=== PATIENT | male | born 1945 | race Caucasian/White ===

== ENCOUNTER 2017-06-23 00:45 | Inpatient (IN) | payer MEDICARE, BC ==
[2017-06-23] MEDS ORDERED: Metoclopramide 10 MG/2 ML SDV IVPUSH ONE (01:17)
[2017-06-23] MEDS ORDERED: Lactated Ringers 1,000 ML IV ONE (01:17)
--- NOTE | 2017-06-23 01:23 | EDM.PDOC ---
ED HPI GENERAL MEDICAL PROBLEM - General Chief Complaint: Abdominal Pain Stated Complaint: ABDOMINAL PAIN Time Seen by Provider: 06/23/17 01:00 Source of Information: Reports: Patient, Old Records, RN History Limitations: Reports: No Limitations - History of Present Illness INITIAL COMMENTS - FREE TEXT/NARRATIVE: 72 yo male s/p gastric bypass here at [facility] presents with some abdominal pain for a couple days and now vomiting starting this evening before midnight. No bleeding. Not having BM's. Feels like what he experienced when he had a bowel obstruction in the past. 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 ) Associated Symptoms: Reports: Loss of Appetite, Nausea/Vomiting. Denies: Cough , Fever/Chills, Shortness of Breath Treatments CPC: Reports: Other (see below) (reduced oral intake) Abdomen Pain Score (Numeric/FACES): 2 - Related Data Allergies Allergy/AdvReac Type Severity Reaction Status Date / Time No Known Allergies Allergy Verified 06/23/17 00:53 Home Meds: Home Meds Calc/D3/Mag/Zn/Filer Finish/Toby/[place] [Calcium 600 MG Plus Vit D] 1 tab PO DAILY [History] Cyanocobalamin (Vitamin B-12) [Cyanocobalamin Injection] 1,000 mcg IM ASDIRECTED 04/25/15 [History] Cyanocobalamin/FA/Pyridoxine [B Complex-Folic Acid] 1 tab PO DAILY 04/25/15 [ History] Lisinopril 10 mg PO DAILY #30 tablet 04/27/15 [Rx] Past Medical History HEENT History: Reports: Impaired Vision Cardiovascular History: Reports: Hypertension Gastrointestinal History: Reports: Bowel Obstruction Musculoskeletal History: Reports: None Hematologic History: Reports: B12 Deficiency - Infectious Disease History Infectious Disease History: Reports: Chicken Pox, Mumps - Past Surgical History Cardiovascular Surgical History: Reports: None GI Surgical History: Reports: Bariatric Procedure, Small Bowel Musculoskeletal Surgical History: Reports: Other (See Below) Other Musculoskeletal Surgeries/Procedures:: spinal surgery Dermatological Surgical History: Reports: None Social & Family History - Family History Family Medical History: Noncontributory - Tobacco Use Smoking Status *Q: Never Smoker Years of Tobacco use: 5 Second Hand Smoke Exposure: Yes - Caffeine Use Caffeine Use: Reports: Coffee, Tea - Alcohol Use Days Per Week of Alcohol Use: 1 Number of Drinks Per Day: 1 Total Drinks Per Week: 1 - Recreational Drug Use Recreational Drug Use: No ED ROS GENERAL - Review of Systems Review Of Systems: See Below Constitutional: Reports: Decreased Appetite HEENT: Reports: No Symptoms Respiratory: Reports: No Symptoms Cardiovascular: Reports: No Symptoms Endocrine: Reports: No Symptoms GI/Abdominal: Reports: Abdominal Pain, Anorexia, Constipation, Distension, Nausea, Vomiting. Denies: Black Stool, Bloody Stool, Diarrhea, Flatus, Hematemesis, Hematochezia : Reports: No Symptoms Musculoskeletal: Reports: No Symptoms Skin: Reports: No Symptoms Neurological: Reports: No Symptoms ED EXAM, GI/ABD - Physical Exam Exam: See Below Exam Limited By: No Limitations General Appearance: Alert, WD/WN, No Apparent Distress Eyes: Bilateral: Normal Appearance Ears: Normal External Exam, Normal Canal, Hearing Grossly Normal, Normal TMs Nose: Normal Inspection, Normal Mucosa, No Blood Throat/Mouth: Normal Inspection, Normal Lips, Normal Oropharynx, Normal Voice, No Airway Compromise Head: Atraumatic, Normocephalic Neck: Normal Inspection Respiratory/Chest: No Respiratory Distress, Lungs Clear, Normal Breath Sounds, No Accessory Muscle Use Cardiovascular: Regular Rate, Rhythm, No Edema GI/Abdominal Exam: Distended (mild), Tender (diffusely), Abnormal Bowel Sounds ( decreased). No: Guarding, Rigid, Rebound Back Exam: Normal Inspection. No: CVA Tenderness (R), CVA Tenderness (L) Extremities: Normal Inspection, Normal Range of Motion, Non-Tender Neurological: Alert, Oriented, CN II-XII Intact, Normal Cognition, No Motor/ Sensory Deficits Psychiatric: Normal Affect, Normal Mood Skin Exam: Warm, Dry, Intact, Normal Color, No Rash Course - Vital Signs Text/Narrative:: Dr. Ramsey notified @ 0320h Last Recorded V/S: Last Vital Signs Temp 36.6 C 06/24/17 06:51 Pulse 56 L 06/24/17 06:51 Resp 16 06/24/17 06:51 BP 126/59 L 04/23/18 06:51 Pulse Ox 96 06/24/17 06:51 - Orders/Labs/Meds Orders: Active Orders 24 hr Category Date Time Status HYDROmorphone/Normal Saline [Dilaudid PUBLICITY CONSULTANT 15 MG in NS Med 06/23/17 07:18 Active 30 ML] 0 mg IV ASDIRECTED PRN Naloxone [Narcan] Med 06/23/17 07:22 Active 0.1 mg IV ASDIRECTED PRN Medication Orders Acetaminophen (Tylenol) 650 mg PO Q6H [facility] Last Admin: 06/24/17 02:04 Dose: 650 mg Admin: 06/23/17 20:00 Dose: 650 mg Admin: 06/23/17 14:20 Dose: 650 mg Celecoxib (Celebrex) 200 mg PO DAILY@0800 [facility] Cyanocobalamin (Vitamin B12) 1,000 mcg IM ONETIME ONE Stop: 06/25/17 09:01 Diphenhydramine HCl (Benadryl) 25 - 50 mg IVPUSH Q4H PRN PRN Reason: ITCHING Gabapentin (Neurontin) 300 mg PO TID [facility] Last Admin: 06/23/17 21:06 Dose: 300 mg Admin: 06/23/17 14:20 Dose: 300 mg Heparin Sodium (Porcine) (Heparin Sodium) 5,000 units SUBCUT Q8H [facility] Last Admin: 06/23/17 23:57 Dose: 5,000 units Admin: 06/23/17 16:14 Dose: 5,000 units Hydromorphone HCl (Dilaudid Home Theater Expert 15 Mg In Ns 30 Ml) 0 mg IV ASDIRECTED PRN; Protocol PRN Reason: Pain Hydroxyzine HCl (Vistaril) 75 - 100 mg IM Q4H PRN PRN Reason: pain Dextrose/Lactated Ringer's (Dextrose 5%-Lactated Ringers) 1,000 mls @ 175 mls/ hr IV ASDIRECTED [facility] Last Admin: 06/24/17 06:19 Dose: 175 mls/hr Infusion: 06/24/17 05:39 Dose: 175 mls/hr Admin: 06/23/17 23:56 Dose: 175 mls/hr Infusion: 06/23/17 23:21 Dose: 175 mls/hr Admin: 06/23/17 17:38 Dose: 175 mls/hr Multivitamins/Minerals 10 ml/Thiamine HCl 100 mg/ Chromium/Copper/Manganese/ Seleni/Zn 1 ml/ Dextrose/Lactated Ringer's 1,012 mls @ 175 mls/hr IV DAILY@ 1600 [facility] Last Admin: 06/23/17 17:36 Dose: 175 mls/hr Cefoxitin Sodium 2 gm/ Sodium (Chloride) 50 mls @ 100 mls/hr IV Q6H [facility] Stop: 06/24/17 08:29 Last Admin: 06/24/17 02:04 Dose: 100 mls/hr Admin: 06/23/17 20:01 Dose: 100 mls/hr Admin: 06/23/17 14:20 Dose: 100 mls/hr Labetalol HCl (Normodyne) 5 - 15 mg IVPUSH Q1H PRN PRN Reason: SBP over 160 OR DBP over 95 Lisinopril (Prinivil) 10 mg PO DAILY [facility] Metoclopramide HCl (Reglan) 10 mg IVPUSH Q6H PRN PRN Reason: NAUSEA NOT CONTROL BY ZOFRAN Miscellaneous Information (Remove Patch) 1 ea TRDERM ONETIME ONE Stop: 06/25/17 10:01 Naloxone HCl (Narcan) 0.1 mg IV ASDIRECTED PRN PRN Reason: decreased respiratory rate Scopolamine Patch (Check) 1 each TOP DAILY [facility] Stop: 06/25/17 12:01 Ondansetron HCl (Zofran) 4 mg IVPUSH Q4H PRN PRN Reason: Nausea/Vomiting Pantoprazole Sodium (Protonix Iv) 40 mg IVPUSH Q24H [facility] Last Admin: 06/23/17 14:20 Dose: 40 mg Scopolamine (Transderm-Scop) 1.5 mg TOP Q72H [facility] Stop: 06/25/17 10:00 Last Admin: 06/23/17 14:19 Dose: 1.5 mg Tamsulosin HCl (Flomax) 0.4 mg PO BEDTIME [facility] Last Admin: 06/23/17 21:06 Dose: 0.4 mg Labs: Laboratory Tests 06/23/17 06/23/17 06/23/17 Range/Units 01:25 01:25 01:25 WBC 7.1 (4.5-11.0) K/uL RBC 5.03 (4.30-5.90) M/uL Hgb 15.2 H (12.0-15.0) g/dL Hct 45.1 (40.0-54.0) % MCV 90 (80-98) fL MCH 30 (27-31) pg MCHC 34 (32-36) % Plt Count 233 (150-400) K/uL Sodium 140 (140-148) mmol/L Potassium 4.4 (3.6-5.2) mmol/L Chloride 103 (100-108) mmol/L Carbon Dioxide 25 (21-32) mmol/L Anion Gap 11.6 (5.0-14.0) mmol/L BUN 19 H D (7-18) mg/dL Creatinine 1.3 (0.8-1.3) mg/dL Est Cr Clr Drug Dosing 59.75 mL/min Estimated GFR (MDRD) 55 L (>60) Glucose 139 H (74-106) mg/dL Calcium 8.9 (8.5-10.1) mg/dL C-Reactive Protein 2.72 H (0.0-0.3) mg/dL Lipase 95 (73-393) U/L Meds: Medications Generic Name Dose Route Start Last Admin Trade Name Freq PRN Reason Stop Dose Admin Acetaminophen 650 mg 06/23/17 14:00 06/24/17 02:04 Tylenol PO 650 mg Q6H [facility] Administration Celecoxib 200 mg 06/24/17 08:00 Celebrex PO DAILY@0800 [facility] Cyanocobalamin 1,000 mcg 06/25/17 09:00 Vitamin B12 IM 06/25/17 09:01 ONETIME ONE Diphenhydramine HCl 25 - 50 mg 06/23/17 12:00 Benadryl IVPUSH Q4H PRN ITCHING Gabapentin 300 mg 06/23/17 14:00 06/23/17 21:06 Neurontin PO 300 mg TID [facility] Administration Heparin Sodium (Porcine) 5,000 units 06/23/17 16:00 06/23/17 23:57 Heparin Sodium SUBCUT 5,000 units Q8H [facility] Administration Hydromorphone HCl 0 mg 06/23/17 07:18 Dilaudid Home Theater Expert 15 Mg In Ns 30 Ml IV ASDIRECTED PRN Pain Protocol Hydroxyzine HCl 75 - 100 mg 06/23/17 12:00 Vistaril IM Q4H PRN pain Dextrose/Lactated Ringer's 1,000 mls @ 175 mls/hr 06/23/17 12:00 06/24/17 06: 19 Dextrose 5%-Lactated Ringers IV 175 mls/hr ASDIRECTED [facility] Administration Multivitamins/Minerals 10 ml/ 1,012 mls @ 175 mls/hr 06/23/17 16:00 06/23/17 17:36 Thiamine HCl 100 mg/ Chromium/ IV 175 mls/hr Copper/Manganese/Seleni/Zn 1 DAILY@1600 [facility] Administration ml/ Dextrose/Lactated Ringer's Cefoxitin Sodium 2 gm/ Sodium 50 mls @ 100 mls/hr 06/23/17 14:00 06/24/17 02: 04 Chloride IV 06/24/17 08:29 100 mls/hr Q6H [facility] Administration Labetalol HCl 5 - 15 mg 06/23/17 12:00 Normodyne IVPUSH Q1H PRN SBP over 160 OR DBP over 95 Lisinopril 10 mg 06/24/17 09:00 Prinivil PO DAILY [facility] Metoclopramide HCl 10 mg 06/23/17 12:00 Reglan IVPUSH Q6H PRN NAUSEA NOT CONTROL BY ZOFRAN Miscellaneous Information 1 ea 06/25/17 10:00 Remove Patch TRDERM 06/25/17 10:01 ONETIME ONE Naloxone HCl 0.1 mg 06/23/17 07:22 Narcan IV ASDIRECTED PRN decreased respiratory rate Scopolamine Patch 1 each 06/23/17 12:00 Check TOP 06/25/17 12:01 DAILY [facility] Ondansetron HCl 4 mg 06/23/17 12:00 Zofran IVPUSH Q4H PRN Nausea/Vomiting Pantoprazole Sodium 40 mg 06/23/17 14:00 06/23/17 14:20 Protonix Iv IVPUSH 40 mg Q24H [facility] Administration Scopolamine 1.5 mg 06/23/17 12:00 06/23/17 14:19 Transderm-Scop TOP 06/25/17 10:00 1.5 mg Q72H [facility] Administration Tamsulosin HCl 0.4 mg 06/23/17 21:00 06/23/17 21:06 Flomax PO 0.4 mg BEDTIME [facility] Administration Discontinued Medications Generic Name Dose Route Start Last Admin Trade Name Freq PRN Reason Stop Dose Admin Ropivacaine 54 ml/ 0 ml 06/23/17 08:00 06/23/17 08:29 Dexamethasone 8 mg/ NERVRT 06/23/17 08:01 80 syringe Epinephrine HCl 0.4 mg/ Sodium ONETIME ONE Administration Chloride 23.6 ml Dexamethasone Confirm 06/23/17 06:40 Dexamethasone Administered 06/23/17 06:41 Dose 4 mg .ROUTE .STK-MED ONE Fentanyl Confirm 06/23/17 06:40 Sublimaze Administered 06/23/17 06:41 Dose 250 mcg .ROUTE .STK-MED ONE Fentanyl Confirm 06/23/17 09:23 Sublimaze Administered 06/23/17 09:24 Dose 100 mcg .ROUTE .STK-MED ONE Glycopyrrolate Confirm 06/23/17 06:40 Robinul Administered 06/23/17 06:41 Dose 1 mg .ROUTE .STK-MED ONE Hydromorphone HCl 15 mg 06/23/17 03:30 06/23/17 04:28 Dilaudid Home Theater Expert 15 Mg In Ns 30 Ml IV 15 mg ASDIRECTED [facility] Administration Protocol Lactated Ringer's 1,000 mls @ 1,000 mls/hr 06/23/17 01:17 06/23/17 01:45 Ringers, Lactated IV 06/23/17 02:16 1,000 mls/hr BOLUS ONE Administration Sodium Chloride 85 mls @ 4 mls/sec 06/23/17 02:15 06/23/17 02:28 Normal Saline IV 06/23/17 02:16 4 mls/sec ASDIRECTED STA Administration Lactated Ringer's 1,000 mls @ 200 mls/hr 06/23/17 03:15 06/23/17 03:30 Ringers, Lactated IV 200 mls/hr ASDIRECTED [facility] Administration Lidocaine HCl/Dextrose 2 gm in 500 mls @ 30 mls/hr 06/23/17 08:00 06/23/17 11 :39 Lidocaine 2 Gm/D5w 500 Ml IV 06/24/17 00:39 2 mg/min .[id number] [facility] 30 mls/hr Administration 2 MG/MIN Ketamine HCl 100 mg/ Sodium 100 mls @ 24 mls/hr 06/23/17 08:00 Chloride IV 06/23/17 10:00 ASDIRECTED [facility] 5 MCG/KG/MIN Cefoxitin Sodium 2 gm/ Sodium 50 mls @ 100 mls/hr 06/23/17 08:00 06/23/17 08: 00 Chloride IV 06/23/17 08:29 100 mls/hr ONETIME ONE Administration Dextrose/Lactated Ringer's 1,000 mls @ 150 mls/hr 06/23/17 07:30 06/23/17 11: 38 Dextrose 5%-Lactated Ringers IV 150 mls/hr ASDIRECTED [facility] Administration Iohexol 50 ml 06/24/17 03:26 06/24/17 03:35 Omnipaque-300 PO 06/24/17 03:27 50 ml .ASDIRECTED STA Administration Iopamidol 150 ml 06/23/17 02:15 06/23/17 02:27 Isovue-300 (61%) IV 06/23/17 02:16 150 ml . DIRECTED STA Administration Ketamine HCl 40 mg 06/23/17 08:00 06/23/17 11:39 Ketalar IV 06/23/17 08:01 Not Given ONETIME ONE Lidocaine HCl 136 mg 06/23/17 08:00 06/23/17 11:39 Xylocaine 2% IVPUSH 06/23/17 08:01 Not Given ONETIME ONE Meropenem Confirm 06/23/17 06:45 06/23/17 09:14 Merrem Administered 06/23/17 06:46 500 mg Dose Administration 500 mg .ROUTE .STK-MED ONE Metoclopramide HCl 10 mg 06/23/17 01:17 06/23/17 01:45 Reglan IVPUSH 06/23/17 01:18 10 mg ONETIME ONE Administration Neostigmine Methylsulfate Confirm 06/23/17 06:40 Neostigmine Administered 06/23/17 06:41 Dose 5 mg .ROUTE .STK-MED ONE Ondansetron HCl Confirm 06/23/17 06:40 Zofran Administered 06/23/17 06:41 Dose 4 mg .ROUTE .STK-MED ONE Propofol Confirm 06/23/17 06:40 Diprivan 20 Ml Administered 06/23/17 06:41 Dose 200 mg .ROUTE .STK-MED ONE Rocuronium [place] Confirm 06/23/17 06:40 Zemuron Administered 06/23/17 06:41 Dose 50 mg .ROUTE .STK-MED ONE Rocuronium [place] Confirm 06/23/17 09:11 Zemuron Administered 06/23/17 09:12 Dose 50 mg .ROUTE .STK-MED ONE Succinylcholine Chloride Confirm 06/23/17 06:40 Quelicin Administered 06/23/17 06:41 Dose 200 mg .ROUTE .STK-MED ONE - Radiology Interpretation Free Text/Narrative:: CT abd/pelvis-SBO CT Results Date: 06/23/17 CT Results Time: 03:10 Departure - Departure Time of Disposition: 07:30 Disposition: Admitted As Inpatient 68 Condition: Fair Clinical Impression: SBO (small bowel obstruction) - Discharge Information - My Orders Last 24 Hours: My Active Orders 06/23/17 07:18 HYDROmorphone/Normal Saline [Dilaudid PUBLICITY CONSULTANT 15 MG in NS 30 ML] 0 mg IV ASDIRECTED PRN - Assessment/Plan Last 24 Hours: My Active Orders 06/23/17 07:18 HYDROmorphone/Normal Saline [Dilaudid PUBLICITY CONSULTANT 15 MG in NS 30 ML] 0 mg IV ASDIRECTED PRN
[2017-06-23] MEDS ORDERED: Iopamidol 612 MG/ML 150 ML Bottle IV STA (02:15)
[2017-06-23] MEDS ORDERED: Lactated Ringers 1,000 ML IV SCH (03:15)
[2017-06-23] MEDS ORDERED: HYDROmorphone/Normal Saline 15 MG/30 ML PCA IV SCH (03:30)
[2017-06-23] MEDS ORDERED: Ondansetron 4 MG/2 ML SDV ONE (06:40)
[2017-06-23] MEDS ORDERED: Neostigmine Methylsulfate 1 MG/ML 5 ML Syringe ONE (06:40)
[2017-06-23] MEDS ORDERED: Dexamethasone 4 MG/ML SDV ONE (06:40)
[2017-06-23] MEDS ORDERED: fentaNYL 250 MCG/5 ML SDV ONE (06:40)
[2017-06-23] MEDS ORDERED: Glycopyrrolate 0.2 MG/ML 5 ML MDV ONE (06:40)
[2017-06-23] MEDS ORDERED: Rocuronium 50 MG/5 ML Vial ONE ×2 (06:40→09:11)
[2017-06-23] MEDS ORDERED: Succinylcholine 200 MG/10 ML MDV ONE (06:40)
[2017-06-23] MEDS ORDERED: Propofol 200 MG/20 ML SDV ONE (06:40)
[2017-06-23] MEDS ORDERED: Meropenem 500 MG SDV ONE (06:45)
[2017-06-23] MEDS ORDERED: HYDROmorphone/Normal Saline 15 MG/30 ML PCA IV PRN (07:18)
[2017-06-23] MEDS ORDERED: Naloxone 0.4 MG/ML SDV IV PRN (07:22)
[2017-06-23] MEDS ORDERED: Ketamine 500 MG/5 ML MDV IV ONE (08:00)
[2017-06-23] MEDS ORDERED: Lidocaine 2% 100 MG/5 ML Syringe IVPUSH ONE (08:00)
[2017-06-23] MEDS ORDERED: cefOXitin 2 GM in Sodium Chloride 0.9% 50 ML IV ONE (08:00)
[2017-06-23] MEDS ORDERED: Ropivacaine 54 ML, Dexamethasone 8 MG, EPINEPHrine 0.4 MG, Sodium Chloride 0.9% 23.6 ML NERVRT ONE ×4 (08:00)
[2017-06-23] MEDS ORDERED: Lidocaine 0.4%/D5W 2 GM/500 ML BAG IV SCH (08:00)
[2017-06-23] MEDS: Dextrose 5%-Lactated Ringers 1,000 ML IV SCH ×4 (08:01→23:56)
[2017-06-23] MEDS ORDERED: fentaNYL 100 MCG/2 ML SDV ONE (09:23)
[2017-06-23] MEDS ORDERED: Scopolamine 1.5 MG Transdermal Patch TOP SCH (12:00)
[2017-06-23] MEDS ORDERED: hydrOXYzine HCl 100 MG/2 ML SDV IM PRN (12:00)
[2017-06-23] MEDS ORDERED: Labetalol 20 MG/4 ML Syringe IVPUSH PRN (12:00)
[2017-06-23] MEDS ORDERED: diphenhydrAMINE 50 MG/ML SDV IVPUSH PRN (12:00)
[2017-06-23] MEDS ORDERED: Ondansetron 4 MG/2 ML SDV IVPUSH PRN (12:00)
[2017-06-23] MEDS ORDERED: Metoclopramide 10 MG/2 ML SDV IVPUSH PRN (12:00)
[2017-06-23] MEDS ORDERED: Pantoprazole 40 MG Vial IVPUSH SCH (14:00)
[2017-06-23] MEDS: Gabapentin 250 MG/5 ML Solution ML 470 ML Bottle PO SCH ×2 (14:20→21:06)
[2017-06-23] MEDS: Acetaminophen Soln 650 MG/20.3 ML UD Cup PO SCH ×2 (14:20→20:00)
[2017-06-23] MEDS: cefOXitin 2 GM in Sodium Chloride 0.9% 50 ML IV SCH ×2 (14:20→20:01)
[2017-06-23] MEDS ORDERED: MVI, Adult with Vitamin K 10 ML, Thiamine 100 MG, Chromium/Copper/Mang/Selen/Zn 1 ML in... IV SCH ×4 (16:00)
[2017-06-23] MEDS: Heparin Sodium 5,000 Units/ML Vial SUBCUT SCH ×2 (16:14→23:57)
[2017-06-23] MEDS: Tamsulosin 0.4 MG Cap.ER PO SCH (21:06)
[2017-06-24] MEDS: Acetaminophen Soln 650 MG/20.3 ML UD Cup PO SCH ×4 (02:04→21:47)
[2017-06-24] MEDS: cefOXitin 2 GM in Sodium Chloride 0.9% 50 ML IV SCH ×2 (02:04→08:14)
[2017-06-24] MEDS ORDERED: Iohexol 647 MG/ML 50 ML SDV PO STA (03:26)
[2017-06-24] MEDS: Dextrose 5%-Lactated Ringers 1,000 ML IV SCH (06:19)
--- NOTE | 2017-06-24 07:09 | PCM.SURGPN ---
- General Info Date of Service: 06/24/17 Date of Surgery/Procedure: 06/23/17 POD#: 1 Post-Op Diagnosis: Abdominal pain with small bowel volvous and sigmoid volvous Functional Status: Reports: Pain Controlled, Tolerating Diet, Ambulating, Urinating, Incentive Spirometry - Review of Systems General: Reports: No Symptoms HEENT: Reports: No Symptoms Pulmonary: Reports: No Symptoms Cardiovascular: Reports: No Symptoms Gastrointestinal: Reports: Abdominal Pain Genitourinary: Reports: No Symptoms Musculoskeletal: Reports: No Symptoms Skin: Reports: No Symptoms Neurological: Reports: No Symptoms Psychiatric: Reports: No Symptoms Systems Review Comment:: Patient reports that he is feeling well today. He has been tolerating his diet without nausea or vomiting. He denies flatus. He states that he has been up ambulating and denies any concerns. - Patient Data Vitals - Most Recent: Last Vital Signs Temp 36.6 C 06/24/17 06:51 Pulse 56 L 06/24/17 06:51 Resp 16 06/24/17 06:51 BP 126/59 L 06/24/17 06:51 Pulse Ox 96 06/24/17 06:51 Weight - Most Recent: 107.6 kg I&O - Last 24 Hours: Intake & Output 06/23/17 06/24/17 06/24/17 22:59 06:59 14:59 Intake Total 19902 Output Total 525 695 Balance 1466 1917 Lab Results Last 24 Hrs: Laboratory Results - last 24 hr 06/24/17 06/24/17 Range/Units 05:50 05:50 WBC 6.5 (4.5-11.0) K/uL RBC 4.60 (4.30-5.90) M/uL Hgb 14.1 (12.0-15.0) g/dL Hct 41.5 (40.0-54.0) % MCV 90 (80-98) fL MCH 31 (27-31) pg MCHC 34 (32-36) % Plt Count 201 (150-400) K/uL Sodium 141 (140-148) mmol/L Potassium 4.6 (3.6-5.2) mmol/L Chloride 104 (100-108) mmol/L Carbon Dioxide 29 (21-32) mmol/L Anion Gap 7.6 (5.0-14.0) mmol/L BUN 10 (7-18) mg/dL Creatinine 1.1 (0.8-1.3) mg/dL Est Cr Clr Drug Dosing 70.62 mL/min Estimated GFR (MDRD) > 60 (>60) Glucose 157 H (74-106) mg/dL Calcium 8.3 L (8.5-10.1) mg/dL Phosphorus 2.8 (2.5-4.9) mg/dL Magnesium 1.7 L (1.8-2.4) mg/dL Total Bilirubin 0.7 (0.2-1.0) mg/dL AST 16 (15-37) U/L ALT 19 (12-78) U/L Alkaline Phosphatase 62 (46-116) U/L NT-Pro-B Natriuret Pep 226 H (5-125) pg/mL Total Protein 6.0 L (6.4-8.2) g/dL Albumin 2.6 L (3.4-5.0) g/dL Globulin 3.4 (2.3-3.5) g/dL Albumin/Globulin Ratio 0.8 L (1.2-2.2) Med Orders - Current: Current Medications Acetaminophen (Tylenol) 650 mg PO Q6H [facility] Last Admin: 06/24/17 02:04 Dose: 650 mg Celecoxib (Celebrex) 200 mg PO DAILY@0800 [facility] Cyanocobalamin (Vitamin B12) 1,000 mcg IM ONETIME ONE Stop: 06/25/17 09:01 Diphenhydramine HCl (Benadryl) 25 - 50 mg IVPUSH Q4H PRN PRN Reason: ITCHING Gabapentin (Neurontin) 300 mg PO TID [facility] Last Admin: 06/23/17 21:06 Dose: 300 mg Heparin Sodium (Porcine) (Heparin Sodium) 5,000 units SUBCUT Q8H [facility] Last Admin: 06/23/17 23:57 Dose: 5,000 units Hydromorphone HCl (Dilaudid Product Safety Tester 15 Mg In Ns 30 Ml) 0 mg IV ASDIRECTED PRN; Protocol PRN Reason: Pain Hydroxyzine HCl (Vistaril) 75 - 100 mg IM Q4H PRN PRN Reason: pain Dextrose/Lactated Ringer's (Dextrose 5%-Lactated Ringers) 1,000 mls @ 175 mls/ hr IV ASDIRECTED [facility] Last Admin: 06/24/17 06:19 Dose: 175 mls/hr Multivitamins/Minerals 10 ml/Thiamine HCl 100 mg/ Chromium/Copper/Manganese/ Seleni/Zn 1 ml/ Dextrose/Lactated Ringer's 1,012 mls @ 175 mls/hr IV DAILY@ 1600 [facility] Last Admin: 06/23/17 17:36 Dose: 175 mls/hr Cefoxitin Sodium 2 gm/ Sodium (Chloride) 50 mls @ 100 mls/hr IV Q6H [facility] Stop: 06/24/17 08:29 Last Admin: 06/24/17 02:04 Dose: 100 mls/hr Labetalol HCl (Normodyne) 5 - 15 mg IVPUSH Q1H PRN PRN Reason: SBP over 160 OR DBP over 95 Lisinopril (Prinivil) 10 mg PO DAILY [facility] Metoclopramide HCl (Reglan) 10 mg IVPUSH Q6H PRN PRN Reason: NAUSEA NOT CONTROL BY ZOFRAN Miscellaneous Information (Remove Patch) 1 ea TRDERM ONETIME ONE Stop: 06/25/17 10:01 Naloxone HCl (Narcan) 0.1 mg IV ASDIRECTED PRN PRN Reason: decreased respiratory rate Scopolamine Patch (Check) 1 each TOP DAILY [facility] Stop: 06/25/17 12:01 Ondansetron HCl (Zofran) 4 mg IVPUSH Q4H PRN PRN Reason: Nausea/Vomiting Pantoprazole Sodium (Protonix Iv) 40 mg IVPUSH Q24H [facility] Last Admin: 06/23/17 14:20 Dose: 40 mg Scopolamine (Transderm-Scop) 1.5 mg TOP Q72H [facility] Stop: 06/25/17 10:00 Last Admin: 06/23/17 14:19 Dose: 1.5 mg Tamsulosin HCl (Flomax) 0.4 mg PO BEDTIME [facility] Last Admin: 06/23/17 21:06 Dose: 0.4 mg Discontinued Medications Ropivacaine 54 ml/Dexamethasone 8 mg/Epinephrine HCl 0.4 mg/ Sodium Chloride 23.6 ml 0 ml NERVRT ONETIME ONE Stop: 06/23/17 08:01 Last Admin: 06/23/17 08:29 Dose: 80 syringe Dexamethasone (Dexamethasone) Confirm Administered Dose 4 mg .ROUTE .STK-MED ONE Stop: 06/23/17 06:41 Fentanyl (Sublimaze) Confirm Administered Dose 250 mcg .ROUTE .STK-MED ONE Stop: 06/23/17 06:41 Fentanyl (Sublimaze) Confirm Administered Dose 100 mcg .ROUTE .STK-MED ONE Stop: 06/23/17 09:24 Glycopyrrolate (Robinul) Confirm Administered Dose 1 mg .ROUTE .STK-MED ONE Stop: 06/23/17 06:41 Hydromorphone HCl (Dilaudid Product Safety Tester 15 Mg In Ns 30 Ml) 15 mg IV ASDIRECTED [facility]; Protocol Last Admin: 06/23/17 04:28 Dose: 15 mg Lactated Ringer's (Ringers, Lactated) 1,000 mls @ 1,000 mls/hr IV BOLUS ONE Stop: 06/23/17 02:16 Last Admin: 06/23/17 01:45 Dose: 1,000 mls/hr Sodium Chloride (Normal Saline) 85 mls @ 4 mls/sec IV ASDIRECTED [facility] Stop: 06/23/17 02:16 Last Admin: 06/23/17 02:28 Dose: 4 mls/sec Lactated Ringer's (Ringers, Lactated) 1,000 mls @ 200 mls/hr IV ASDIRECTED [facility] Last Admin: 06/23/17 03:30 Dose: 200 mls/hr Lidocaine HCl/Dextrose (Lidocaine 2 Gm/D5w 500 Ml) 2 gm in 500 mls @ 30 mls/hr IV .[id number] [facility] Stop: 06/24/17 00:39 Last Admin: 06/23/17 11:39 Dose: 2 mg/min, 30 mls/hr Ketamine HCl 100 mg/ Sodium (Chloride) 100 mls @ 24 mls/hr IV ASDIRECTED [facility] Stop: 06/23/17 10:00 Cefoxitin Sodium 2 gm/ Sodium (Chloride) 50 mls @ 100 mls/hr IV ONETIME ONE Stop: 06/23/17 08:29 Last Admin: 06/23/17 08:00 Dose: 100 mls/hr Dextrose/Lactated Ringer's (Dextrose 5%-Lactated Ringers) 1,000 mls @ 150 mls/ hr IV ASDIRECTED [facility] Last Admin: 06/23/17 11:38 Dose: 150 mls/hr Iohexol (Omnipaque-300) 50 ml PO .ASDIRECTED [facility] Stop: 06/24/17 03:27 Last Admin: 06/24/17 03:35 Dose: 50 ml Iopamidol (Isovue-300 (61%)) 150 ml IV . DIRECTED [facility] Stop: 06/23/17 02:16 Last Admin: 06/23/17 02:27 Dose: 150 ml Ketamine HCl (Ketalar) 40 mg IV ONETIME ONE Stop: 06/23/17 08:01 Last Admin: 06/23/17 11:39 Dose: Not Given Lidocaine HCl (Xylocaine 2%) 136 mg IVPUSH ONETIME ONE Stop: 06/23/17 08:01 Last Admin: 06/23/17 11:39 Dose: Not Given Meropenem (Merrem) Confirm Administered Dose 500 mg .ROUTE .STK-MED ONE Stop: 06/23/17 06:46 Last Admin: 06/23/17 09:14 Dose: 500 mg Metoclopramide HCl (Reglan) 10 mg IVPUSH ONETIME ONE Stop: 06/23/17 01:18 Last Admin: 06/23/17 01:45 Dose: 10 mg Neostigmine Methylsulfate (Neostigmine) Confirm Administered Dose 5 mg .ROUTE .STK-MED ONE Stop: 06/23/17 06:41 Ondansetron HCl (Zofran) Confirm Administered Dose 4 mg .ROUTE .STK-MED ONE Stop: 06/23/17 06:41 Propofol (Diprivan 20 Ml) Confirm Administered Dose 200 mg .ROUTE .STK-MED ONE Stop: 06/23/17 06:41 Rocuronium [place] (Zemuron) Confirm Administered Dose 50 mg .ROUTE .STK-MED ONE Stop: 06/23/17 06:41 Rocuronium [place] (Zemuron) Confirm Administered Dose 50 mg .ROUTE .STK-MED ONE Stop: 06/23/17 09:12 Succinylcholine Chloride (Quelicin) Confirm Administered Dose 200 mg .ROUTE .STK -MED ONE Stop: 06/23/17 06:41 - Exam Wound/Incisions: Healing Well, Drainage (minimal drainage to dressing) Quality Assessment: DVT Prophylaxis (SCDs) General: Alert, Oriented, Cooperative, No Acute Distress HEENT: Pupils Equal, Pupils Reactive Neck: Supple, Trachea Midline Lungs: Clear to Auscultation, Normal Respiratory Effort Cardiovascular: Regular Rate, Regular Rhythm GI/Abdominal Exam: Soft, Tender (to incision area and LLQ), Abnormal Bowel Sounds (hypoactive) Extremities: Normal Inspection, No Pedal Edema Skin: Warm, Dry, Intact Neurological: No New Focal Deficit Psy/Mental Status: Alert, Normal Affect, Normal Mood - Problem List & Annotations (1) SBO (small bowel obstruction) SNOMED Code(s): 867081714 Code(s): K56.609 - UNSP INTESTNL OBST, UNSP TO PARTIAL VERSUS COMPLETE OBST Status: Acute Current Visit: Yes (2) Abdominal pain SNOMED Code(s): 35508433 Code(s): R10.9 - UNSPECIFIED ABDOMINAL PAIN Status: Acute Current Visit: No Qualifiers: Abdominal location: generalized Qualified Code(s): R10.84 - Generalized abdominal pain - Problem List Review Problem List Initiated/Reviewed/Updated: Yes - My Orders Last 24 Hours: Active Orders 24 hr Category Date Time Status Patient Status [ADT] Routine ADT 06/23/17 10:10 Active Ambulate [RC] ASDIRECTED Care 06/23/17 12:04 Active Cardiac Monitoring [RC] .As Directed Care 06/23/17 12:04 Active Communication Order [RC] ASDIRECTED Care 06/23/17 12:21 Active Communication Order [RC] ASDIRECTED Care 06/25/17 04:00 Active Communication Order [RC] Q4H Care 06/23/17 12:04 Active Communication Order [RC] ROUTINE Care 06/23/17 12:04 Active Head of Bed Elevation [RC] CONTINUOUS Care 06/23/17 12:04 Active Insert Urinary Catheter [OM.PC] Per Unit Routine Care 06/23/17 12:04 Ordered Insert Urinary Catheter [OM.PC] Per Unit Routine Care 06/23/17 12:04 Ordered Intake and Output [RC] ASDIRECTED Care 06/23/17 12:04 Active Notify Provider Intake and Out [RC] ASDIRECTED Care 06/23/17 12:04 Active Notify Provider [RC] PRN Care 06/23/17 12:04 Active Oxygen Therapy [RC] ASDIRECTED Care 06/23/17 12:04 Active Pulse Oximetry [RC] ASDIRECTED Care 06/23/17 12:04 Active RT BiPAP/CPAP [RC] ASDIRECTED Care 06/23/17 12:16 Active RT Incentive Spirometry [RC] ASDIRECTED Care 06/23/17 12:04 Active Turn, Cough, Deep Breathe [RC] Q1HWA Care 06/23/17 12:04 Active Up to Chair [RC] TIDMEALS Care 06/23/17 12:04 Active Urinary Catheter Assessment [RC] ASDIRECTED Care 06/23/17 12:12 Active Vital Signs [RC] Q1H Care 06/23/17 13:00 Active Consult to Bariatric Services [CONS] Routine Cons 06/23/17 12:04 Active Consult to Licensed Psychiatric Technician [CONS] Routine Cons 06/23/17 12:04 Active Consult to Pharmacy [CONS] Routine Cons 06/23/17 12:04 Active Respiratory Care Assess and Treatment [CONS] Routine Cons 06/23/17 12:04 Active Bariatric Diet [DIET] Diet 06/23/17 Dinner Active UGI wo KUB [CR] Timed Exams 06/24/17 04:00 Taken Acetaminophen [Tylenol] Med 06/23/17 14:00 Active 650 mg PO Q6H Celecoxib [CeleBREX] Med 06/24/17 08:00 Active 200 mg PO DAILY@0800 Cyanocobalamin (Vitamin B12) [Vitamin B12] Med 06/25/17 09:00 Once 1,000 mcg IM ONETIME ONE Dextrose 5%-Lactated Ringers 1,000 ml Med 06/23/17 12:00 Active IV ASDIRECTED Gabapentin [Neurontin] Med 06/23/17 14:00 Active 300 mg PO TID HYDROmorphone/Normal Saline [Dilaudid [employer] 15 MG in NS Med 06/23/17 07:18 Active 30 ML] 0 mg IV ASDIRECTED PRN Heparin Sodium Med 06/23/17 16:00 Active 5,000 units SUBCUT Q8H Labetalol [Normodyne] Med 06/23/17 12:00 Active 5 - 15 mg IVPUSH Q1H PRN Lisinopril [Prinivil] Med 06/24/17 09:00 Active 10 mg PO DAILY [facility], Adult with Vitamin K [Infuvite Adult] 10 ml Med 06/23/17 16:00 Active Thiamine [Vitamin B-1] 100 mg Chromium/Copper/Toby/Selen/Zn [Multitrace-5 Concentrate ] 1 ml Dextrose 5%-Lactated Ringers 1,000 ml IV DAILY@1600 Metoclopramide [Reglan] Med 06/23/17 12:00 Active 10 mg IVPUSH Q6H PRN Naloxone [Narcan] Med 06/23/17 07:22 Active 0.1 mg IV ASDIRECTED PRN Non-Formulary Medication [NF Drug] Med 06/23/17 12:00 Active 1 each TOP DAILY Ondansetron [Zofran] Med 06/23/17 12:00 Active 4 mg IVPUSH Q4H PRN Pantoprazole [ProTONIX IV] Med 06/23/17 14:00 Active 40 mg IVPUSH Q24H Remove Patch Med 06/25/17 10:00 Once 1 ea TRDERM ONETIME ONE Scopolamine [Transderm-Scop] Med 06/23/17 12:00 Active 1.5 mg TOP Q72H Tamsulosin [Flomax] Med 06/23/17 21:00 Active 0.4 mg PO BEDTIME cefOXitin [Mefoxin] 2 gm Med 06/23/17 14:00 Active Sodium Chloride 0.9% [Normal Saline] 50 ml IV Q6H diphenhydrAMINE [Benadryl] Med 06/23/17 12:00 Active 25 - 50 mg IVPUSH Q4H PRN hydrOXYzine HCl [Vistaril] Med 06/23/17 12:00 Active 75 - 100 mg IM Q4H PRN Abdominal Binder [OM.PC] Routine Oth 06/23/17 12:04 Ordered Oral Care [OM.PC] BID Oth 06/23/17 12:15 Ordered Oral Care [OM.PC] BID Oth 06/24/17 12:15 Ordered PT Screening [OM.PC] Routine Oth 06/23/17 12:04 Active Sequential Compression Device [OM.PC] Routine Oth 06/23/17 12:04 Ordered Specialty Bed [OM.PC] Routine Oth 06/23/17 12:04 Ordered Resuscitation Status Routine Resus Stat 06/23/17 12:03 Ordered Medication Orders Acetaminophen (Tylenol) 650 mg PO Q6H [facility] Last Admin: 06/24/17 02:04 Dose: 650 mg Admin: 06/23/17 20:00 Dose: 650 mg Admin: 06/23/17 14:20 Dose: 650 mg Celecoxib (Celebrex) 200 mg PO DAILY@0800 [facility] Cyanocobalamin (Vitamin B12) 1,000 mcg IM ONETIME ONE Stop: 06/25/17 09:01 Diphenhydramine HCl (Benadryl) 25 - 50 mg IVPUSH Q4H PRN PRN Reason: ITCHING Gabapentin (Neurontin) 300 mg PO TID [facility] Last Admin: 06/23/17 21:06 Dose: 300 mg Admin: 06/23/17 14:20 Dose: 300 mg Heparin Sodium (Porcine) (Heparin Sodium) 5,000 units SUBCUT Q8H [facility] Last Admin: 06/23/17 23:57 Dose: 5,000 units Admin: 06/23/17 16:14 Dose: 5,000 units Hydromorphone HCl (Dilaudid Product Safety Tester 15 Mg In Ns 30 Ml) 0 mg IV ASDIRECTED PRN; Protocol PRN Reason: Pain Hydroxyzine HCl (Vistaril) 75 - 100 mg IM Q4H PRN PRN Reason: pain Dextrose/Lactated Ringer's (Dextrose 5%-Lactated Ringers) 1,000 mls @ 175 mls/ hr IV ASDIRECTED [facility] Last Admin: 06/24/17 06:19 Dose: 175 mls/hr Infusion: 06/24/17 05:39 Dose: 175 mls/hr Admin: 06/23/17 23:56 Dose: 175 mls/hr Infusion: 06/23/17 23:21 Dose: 175 mls/hr Admin: 06/23/17 17:38 Dose: 175 mls/hr Multivitamins/Minerals 10 ml/Thiamine HCl 100 mg/ Chromium/Copper/Manganese/ Seleni/Zn 1 ml/ Dextrose/Lactated Ringer's 1,012 mls @ 175 mls/hr IV DAILY@ 1600 [facility] Last Admin: 06/23/17 17:36 Dose: 175 mls/hr Cefoxitin Sodium 2 gm/ Sodium (Chloride) 50 mls @ 100 mls/hr IV Q6H [facility] Stop: 06/24/17 08:29 Last Admin: 06/24/17 02:04 Dose: 100 mls/hr Admin: 06/23/17 20:01 Dose: 100 mls/hr Admin: 06/23/17 14:20 Dose: 100 mls/hr Labetalol HCl (Normodyne) 5 - 15 mg IVPUSH Q1H PRN PRN Reason: SBP over 160 OR DBP over 95 Lisinopril (Prinivil) 10 mg PO DAILY [facility] Metoclopramide HCl (Reglan) 10 mg IVPUSH Q6H PRN PRN Reason: NAUSEA NOT CONTROL BY ZOFRAN Miscellaneous Information (Remove Patch) 1 ea TRDERM ONETIME ONE Stop: 06/25/17 10:01 Naloxone HCl (Narcan) 0.1 mg IV ASDIRECTED PRN PRN Reason: decreased respiratory rate Scopolamine Patch (Check) 1 each TOP DAILY [facility] Stop: 06/25/17 12:01 Ondansetron HCl (Zofran) 4 mg IVPUSH Q4H PRN PRN Reason: Nausea/Vomiting Pantoprazole Sodium (Protonix Iv) 40 mg IVPUSH Q24H [facility] Last Admin: 06/23/17 14:20 Dose: 40 mg Scopolamine (Transderm-Scop) 1.5 mg TOP Q72H [facility] Stop: 06/25/17 10:00 Last Admin: 06/23/17 14:19 Dose: 1.5 mg Tamsulosin HCl (Flomax) 0.4 mg PO BEDTIME [facility] Last Admin: 06/23/17 21:06 Dose: 0.4 mg - Assessment Assessment (Free Text/Narrative):: S/p exploratory laparotomy with revision of jejunojejunostomy, sigmoid colon resection, umbilical hernia repair, small bowel resection - Plan Plan (Free Text/Narrative):: -Start Step 4 diet today. -May shower today. -Colace -Flomax -Discontinue IV.
[2017-06-24] MEDS ORDERED: Dextrose 5%-Lactated Ringers 1,000 ML IV SCH (07:53)
[2017-06-24] MEDS ORDERED: Ondansetron 4 MG Tab.DIS PO PRN (07:55)
[2017-06-24] MEDS: Celecoxib 200 MG Cap PO SCH (08:16)
[2017-06-24] MEDS: Heparin Sodium 5,000 Units/ML Vial SUBCUT SCH ×2 (08:16→16:59)
[2017-06-24] MEDS: SCOPOLAMINE PATCH CHECK TOP SCH (08:21)
[2017-06-24] MEDS ORDERED: Lisinopril 10 MG Tab PO SCH (09:00)
[2017-06-24] MEDS: Lisinopril 10 MG Tab PO SCH (09:27)
[2017-06-24] MEDS: Gabapentin 250 MG/5 ML Solution ML 470 ML Bottle PO SCH ×3 (09:27→21:50)
[2017-06-24] MEDS: Docusate Sodium 100 MG Cap PO SCH ×2 (09:27→21:50)
--- NOTE | 2017-06-24 10:04 | CR ---
UGI wo KUB HISTORY: eval R -Y GBP FINDINGS: Limited upper GI series was obtained without fluoroscopy. Water-soluble contrast was admini stered orally. Immediate along with 15 and 30 minute delayed images were obtained. Small gastric pouc h is demonstrated. Contrast passes readily through the gastrojejunostomy into loops of jejunum. No ob struction is identified. There is no contrast extravasation. Midline skin lilly are noted. Surgical staple lines overlie the left lower quadrant. IMPRESSION: No postoperative complication identified status post Maria Dolores-en-Y gastric bypass.
[2017-06-24] MEDS: Pantoprazole 40 MG Tab.CR PO SCH (14:11)
[2017-06-24] MEDS ORDERED: MVI, Adult with Vitamin K 10 ML, Thiamine 100 MG, Chromium/Copper/Mang/Selen/Zn 1 ML in... IV SCH ×4 (16:00)
[2017-06-24] MEDS: Tamsulosin 0.4 MG Cap.ER PO SCH (21:51)
[2017-06-25] MEDS: Heparin Sodium 5,000 Units/ML Vial SUBCUT SCH ×3 (00:07→15:49)
[2017-06-25] MEDS: Acetaminophen Soln 650 MG/20.3 ML UD Cup PO SCH ×4 (01:24→21:03)
--- NOTE | 2017-06-25 07:13 | PCM.SURGPN ---
- General Info Date of Service: 06/25/17 Date of Surgery/Procedure: 06/23/17 POD#: 2 Post-Op Diagnosis: abdominal pain with small bowel volvous and sigmoid volvous Functional Status: Reports: Pain Controlled, Tolerating Diet, Ambulating, Urinating, Incentive Spirometry - Review of Systems General: Reports: No Symptoms HEENT: Reports: No Symptoms Pulmonary: Reports: No Symptoms Cardiovascular: Reports: No Symptoms Gastrointestinal: Reports: Abdominal Pain (mild, LLQ, LUQ), Constipation Genitourinary: Reports: No Symptoms Musculoskeletal: Reports: No Symptoms Skin: Reports: No Symptoms Neurological: Reports: No Symptoms Psychiatric: Reports: No Symptoms Systems Review Comment:: Patient reports that he continues to feel well. Is tolerating his diet and voiding well, however denies flatus or BM. He states that he has been up walking. - Patient Data Vitals - Most Recent: Last Vital Signs Temp 36.2 C 06/25/17 01:30 Pulse 58 L 06/25/17 01:30 Resp 18 06/25/17 01:30 BP 141/72 H 06/25/17 01:30 Pulse Ox 98 06/25/17 01:30 Weight - Most Recent: 107.6 kg I&O - Last 24 Hours: Intake & Output 06/24/17 06/25/17 06/25/17 22:59 06:59 14:59 Intake Total 1886 2131 Output Total 550 400 Balance 1336 1731 Med Orders - Current: Current Medications Acetaminophen (Tylenol) 650 mg PO Q6H [facility] Last Admin: 06/25/17 01:24 Dose: 650 mg Celecoxib (Celebrex) 200 mg PO DAILY@0800 [facility] Last Admin: 06/24/17 08:16 Dose: 200 mg Cyanocobalamin (Vitamin B12) 1,000 mcg IM ONETIME ONE Stop: 06/25/17 09:01 Diphenhydramine HCl (Benadryl) 25 - 50 mg IVPUSH Q4H PRN PRN Reason: ITCHING Docusate Sodium (Colace) 100 mg PO BID [facility] Last Admin: 06/24/17 21:50 Dose: 100 mg Gabapentin (Neurontin) 300 mg PO TID [facility] Last Admin: 06/24/17 21:50 Dose: 300 mg Heparin Sodium (Porcine) (Heparin Sodium) 5,000 units SUBCUT Q8H [facility] Last Admin: 06/25/17 00:07 Dose: 5,000 units Hydroxyzine HCl (Vistaril) 75 - 100 mg IM Q4H PRN PRN Reason: pain Dextrose/Lactated Ringer's (Dextrose 5%-Lactated Ringers) 1,000 mls @ 100 mls/ hr IV ASDIRECTED [facility] Last Admin: 06/25/17 01:24 Dose: 100 mls/hr Multivitamins/Minerals 10 ml/Thiamine HCl 100 mg/ Chromium/Copper/Manganese/ Seleni/Zn 1 ml/ Dextrose/Lactated Ringer's 1,012 mls @ 100 mls/hr IV DAILY@ 1600 [facility] Last Admin: 06/24/17 15:19 Dose: 100 mls/hr Labetalol HCl (Normodyne) 5 - 15 mg IVPUSH Q1H PRN PRN Reason: SBP over 160 OR DBP over 95 Lisinopril (Prinivil) 10 mg PO DAILY [facility] Last Admin: 06/24/17 09:27 Dose: 10 mg Metoclopramide HCl (Reglan) 10 mg IVPUSH Q6H PRN PRN Reason: NAUSEA NOT CONTROL BY ZOFRAN Miscellaneous Information (Remove Patch) 1 ea TRDERM ONETIME ONE Stop: 06/25/17 10:01 Scopolamine Patch (Check) 1 each TOP DAILY [facility] Stop: 06/25/17 12:01 Last Admin: 06/24/17 08:21 Dose: Not Given Ondansetron HCl (Zofran) 4 mg IVPUSH Q4H PRN PRN Reason: Nausea/Vomiting Ondansetron HCl (Zofran Odt) 4 mg PO Q4H PRN PRN Reason: Nausea/Vomiting Pantoprazole Sodium (Protonix) 40 mg PO Q24H [facility] Last Admin: 06/24/17 14:11 Dose: 40 mg Scopolamine (Transderm-Scop) 1.5 mg TOP Q72H [facility] Stop: 06/25/17 10:00 Last Admin: 06/23/17 14:19 Dose: 1.5 mg Tamsulosin HCl (Flomax) 0.4 mg PO BEDTIME [facility] Last Admin: 06/24/17 21:51 Dose: 0.4 mg Discontinued Medications Ropivacaine 54 ml/Dexamethasone 8 mg/Epinephrine HCl 0.4 mg/ Sodium Chloride 23.6 ml 0 ml NERVRT ONETIME ONE Stop: 06/23/17 08:01 Last Admin: 06/23/17 08:29 Dose: 80 syringe Dexamethasone (Dexamethasone) Confirm Administered Dose 4 mg .ROUTE .STK-MED ONE Stop: 06/23/17 06:41 Fentanyl (Sublimaze) Confirm Administered Dose 250 mcg .ROUTE .STK-MED ONE Stop: 06/23/17 06:41 Fentanyl (Sublimaze) Confirm Administered Dose 100 mcg .ROUTE .STK-MED ONE Stop: 06/23/17 09:24 Glycopyrrolate (Robinul) Confirm Administered Dose 1 mg .ROUTE .STK-MED ONE Stop: 06/23/17 06:41 Hydromorphone HCl (Dilaudid Spiral Winding Machine Helper 15 Mg In Ns 30 Ml) 15 mg IV ASDIRECTED [facility]; Protocol Last Admin: 06/23/17 04:28 Dose: 15 mg Hydromorphone HCl (Dilaudid Spiral Winding Machine Helper 15 Mg In Ns 30 Ml) 0 mg IV ASDIRECTED PRN; Protocol PRN Reason: Pain Lactated Ringer's (Ringers, Lactated) 1,000 mls @ 1,000 mls/hr IV BOLUS ONE Stop: 06/23/17 02:16 Last Admin: 06/23/17 01:45 Dose: 1,000 mls/hr Sodium Chloride (Normal Saline) 85 mls @ 4 mls/sec IV ASDIRECTED [facility] Stop: 06/23/17 02:16 Last Admin: 06/23/17 02:28 Dose: 4 mls/sec Lactated Ringer's (Ringers, Lactated) 1,000 mls @ 200 mls/hr IV ASDIRECTED [facility] Last Admin: 06/23/17 03:30 Dose: 200 mls/hr Lidocaine HCl/Dextrose (Lidocaine 2 Gm/D5w 500 Ml) 2 gm in 500 mls @ 30 mls/hr IV .[id number] [facility] Stop: 06/24/17 00:39 Last Admin: 06/23/17 11:39 Dose: 2 mg/min, 30 mls/hr Ketamine HCl 100 mg/ Sodium (Chloride) 100 mls @ 24 mls/hr IV ASDIRECTED [facility] Stop: 06/23/17 10:00 Cefoxitin Sodium 2 gm/ Sodium (Chloride) 50 mls @ 100 mls/hr IV ONETIME ONE Stop: 06/23/17 08:29 Last Admin: 06/23/17 08:00 Dose: 100 mls/hr Dextrose/Lactated Ringer's (Dextrose 5%-Lactated Ringers) 1,000 mls @ 150 mls/ hr IV ASDIRECTED [facility] Last Admin: 06/23/17 11:38 Dose: 150 mls/hr Dextrose/Lactated Ringer's (Dextrose 5%-Lactated Ringers) 1,000 mls @ 175 mls/ hr IV ASDIRECTED [facility] Last Admin: 06/24/17 06:19 Dose: 175 mls/hr Multivitamins/Minerals 10 ml/Thiamine HCl 100 mg/ Chromium/Copper/Manganese/ Seleni/Zn 1 ml/ Dextrose/Lactated Ringer's 1,012 mls @ 175 mls/hr IV DAILY@ 1600 [facility] Last Admin: 06/23/17 17:36 Dose: 175 mls/hr Cefoxitin Sodium 2 gm/ Sodium (Chloride) 50 mls @ 100 mls/hr IV Q6H [facility] Stop: 06/24/17 08:29 Last Admin: 06/24/17 08:14 Dose: 100 mls/hr Iohexol (Omnipaque-300) 50 ml PO .ASDIRECTED [facility] Stop: 06/24/17 03:27 Last Admin: 06/24/17 03:35 Dose: 50 ml Iopamidol (Isovue-300 (61%)) 150 ml IV . DIRECTED [facility] Stop: 06/23/17 02:16 Last Admin: 06/23/17 02:27 Dose: 150 ml Ketamine HCl (Ketalar) 40 mg IV ONETIME ONE Stop: 06/23/17 08:01 Last Admin: 06/23/17 11:39 Dose: Not Given Lidocaine HCl (Xylocaine 2%) 136 mg IVPUSH ONETIME ONE Stop: 06/23/17 08:01 Last Admin: 06/23/17 11:39 Dose: Not Given Meropenem (Merrem) Confirm Administered Dose 500 mg .ROUTE .STK-MED ONE Stop: 06/23/17 06:46 Last Admin: 06/23/17 09:14 Dose: 500 mg Metoclopramide HCl (Reglan) 10 mg IVPUSH ONETIME ONE Stop: 06/23/17 01:18 Last Admin: 06/23/17 01:45 Dose: 10 mg Naloxone HCl (Narcan) 0.1 mg IV ASDIRECTED PRN PRN Reason: decreased respiratory rate Neostigmine Methylsulfate (Neostigmine) Confirm Administered Dose 5 mg .ROUTE .STK-MED ONE Stop: 06/23/17 06:41 Ondansetron HCl (Zofran) Confirm Administered Dose 4 mg .ROUTE .STK-MED ONE Stop: 06/23/17 06:41 Pantoprazole Sodium (Protonix Iv) 40 mg IVPUSH Q24H [facility] Last Admin: 06/23/17 14:20 Dose: 40 mg Propofol (Diprivan 20 Ml) Confirm Administered Dose 200 mg .ROUTE .STK-MED ONE Stop: 06/23/17 06:41 Rocuronium [place] (Zemuron) Confirm Administered Dose 50 mg .ROUTE .STK-MED ONE Stop: 06/23/17 06:41 Rocuronium [place] (Zemuron) Confirm Administered Dose 50 mg .ROUTE .STK-MED ONE Stop: 06/23/17 09:12 Succinylcholine Chloride (Quelicin) Confirm Administered Dose 200 mg .ROUTE .STK -MED ONE Stop: 06/23/17 06:41 - Exam Wound/Incisions: Other (binder ) General: Alert, Oriented, Cooperative, No Acute Distress HEENT: Pupils Equal, Pupils Reactive Neck: Supple, Trachea Midline Lungs: Clear to Auscultation, Normal Respiratory Effort Cardiovascular: Regular Rate, Regular Rhythm GI/Abdominal Exam: Normal Bowel Sounds, Soft, Tender (to LLQ, LUQ) Extremities: Normal Inspection, Normal Range of Motion Skin: Warm, Dry, Intact Neurological: No New Focal Deficit Psy/Mental Status: Alert, Normal Affect, Normal Mood - Problem List & Annotations (1) SBO (small bowel obstruction) SNOMED Code(s): 977546021 Code(s): K56.609 - UNSP INTESTNL OBST, UNSP TO PARTIAL VERSUS COMPLETE OBST Status: Acute Current Visit: Yes (2) Abdominal pain SNOMED Code(s): 06514043 Code(s): R10.9 - UNSPECIFIED ABDOMINAL PAIN Status: Acute Current Visit: No Qualifiers: Abdominal location: generalized Qualified Code(s): R10.84 - Generalized abdominal pain - Problem List Review Problem List Initiated/Reviewed/Updated: Yes - My Orders Last 24 Hours: Active Orders 24 hr Category Date Time Status Communication Order [RC] ASDIRECTED Care 06/25/17 04:00 Active May Shower [RC] ASDIRECTED Care 06/24/17 07:54 Active Consult to Bariatric Services [CONS] Routine Cons 06/24/17 07:53 Active Bariatric Diet [DIET] Diet 06/24/17 Breakfast Active Bariatric Diet [DIET] Diet 06/24/17 Breakfast Active Celecoxib [CeleBREX] Med 06/24/17 08:00 Active 200 mg PO DAILY@0800 Cyanocobalamin (Vitamin B12) [Vitamin B12] Med 06/25/17 09:00 Once 1,000 mcg IM ONETIME ONE Dextrose 5%-Lactated Ringers 1,000 ml Med 06/24/17 07:53 Active IV ASDIRECTED Docusate Sodium [Colace] Med 06/24/17 09:00 Active 100 mg PO BID Lisinopril [Prinivil] Med 06/24/17 09:00 Active 10 mg PO DAILY [facility], Adult with Vitamin K [Infuvite Adult] 10 ml Med 06/24/17 16:00 Active Thiamine [Vitamin B-1] 100 mg Chromium/Copper/Toby/Selen/Zn [Multitrace-5 Concentrate ] 1 ml Dextrose 5%-Lactated Ringers 1,000 ml IV DAILY@1600 Ondansetron [Zofran ODT] Med 06/24/17 07:55 Active 4 mg PO Q4H PRN Pantoprazole [ProTONIX] Med 06/24/17 14:00 Active 40 mg PO Q24H Remove Patch Med 06/25/17 10:00 Once 1 ea TRDERM ONETIME ONE Oral Care [OM.PC] BID Oth 06/24/17 12:15 Ordered Medication Orders Acetaminophen (Tylenol) 650 mg PO Q6H [facility] Last Admin: 06/25/17 01:24 Dose: 650 mg Admin: 06/24/17 21:47 Dose: 650 mg Admin: 06/24/17 14:11 Dose: 650 mg Admin: 06/24/17 08:16 Dose: 650 mg Admin: 06/24/17 02:04 Dose: 650 mg Admin: 06/23/17 20:00 Dose: 650 mg Admin: 06/23/17 14:20 Dose: 650 mg Celecoxib (Celebrex) 200 mg PO DAILY@0800 [facility] Last Admin: 06/24/17 08:16 Dose: 200 mg Cyanocobalamin (Vitamin B12) 1,000 mcg IM ONETIME ONE Stop: 06/25/17 09:01 Diphenhydramine HCl (Benadryl) 25 - 50 mg IVPUSH Q4H PRN PRN Reason: ITCHING Docusate Sodium (Colace) 100 mg PO BID [facility] Last Admin: 06/24/17 21:50 Dose: 100 mg Admin: 06/24/17 09:27 Dose: 100 mg Gabapentin (Neurontin) 300 mg PO TID [facility] Last Admin: 06/24/17 21:50 Dose: 300 mg Admin: 06/24/17 14:11 Dose: 300 mg Admin: 06/24/17 09:27 Dose: 300 mg Admin: 06/23/17 21:06 Dose: 300 mg Admin: 06/23/17 14:20 Dose: 300 mg Heparin Sodium (Porcine) (Heparin Sodium) 5,000 units SUBCUT Q8H [facility] Last Admin: 06/25/17 00:07 Dose: 5,000 units Admin: 06/24/17 16:59 Dose: 5,000 units Admin: 06/24/17 08:16 Dose: 5,000 units Admin: 06/23/17 23:57 Dose: 5,000 units Admin: 06/23/17 16:14 Dose: 5,000 units Hydroxyzine HCl (Vistaril) 75 - 100 mg IM Q4H PRN PRN Reason: pain Dextrose/Lactated Ringer's (Dextrose 5%-Lactated Ringers) 1,000 mls @ 100 mls/ hr IV ASDIRECTED [facility] Last Admin: 06/25/17 01:24 Dose: 100 mls/hr Multivitamins/Minerals 10 ml/Thiamine HCl 100 mg/ Chromium/Copper/Manganese/ Seleni/Zn 1 ml/ Dextrose/Lactated Ringer's 1,012 mls @ 100 mls/hr IV DAILY@ 1600 [facility] Last Admin: 06/24/17 15:19 Dose: 100 mls/hr Labetalol HCl (Normodyne) 5 - 15 mg IVPUSH Q1H PRN PRN Reason: SBP over 160 OR DBP over 95 Lisinopril (Prinivil) 10 mg PO DAILY [facility] Last Admin: 06/24/17 09:27 Dose: 10 mg Metoclopramide HCl (Reglan) 10 mg IVPUSH Q6H PRN PRN Reason: NAUSEA NOT CONTROL BY ZOFRAN Miscellaneous Information (Remove Patch) 1 ea TRDERM ONETIME ONE Stop: 06/25/17 10:01 Scopolamine Patch (Check) 1 each TOP DAILY [facility] Stop: 06/25/17 12:01 Last Admin: 06/24/17 08:21 Dose: Ondansetron HCl (Zofran) 4 mg IVPUSH Q4H PRN PRN Reason: Nausea/Vomiting Ondansetron HCl (Zofran Odt) 4 mg PO Q4H PRN PRN Reason: Nausea/Vomiting Pantoprazole Sodium (Protonix) 40 mg PO Q24H [facility] Last Admin: 06/24/17 14:11 Dose: 40 mg Scopolamine (Transderm-Scop) 1.5 mg TOP Q72H [facility] Stop: 06/25/17 10:00 Last Admin: 06/23/17 14:19 Dose: 1.5 mg Tamsulosin HCl (Flomax) 0.4 mg PO BEDTIME [facility] Last Admin: 06/24/17 21:51 Dose: 0.4 mg Admin: 06/23/17 21:06 Dose: 0.4 mg - Assessment Assessment (Free Text/Narrative):: S/p exploratory laparotomy with revision of jejunojejunostomy, sigmoid colon resection, umbilical hernia repair, small bowel resection - Plan Plan (Free Text/Narrative):: -Remove dressing. -Dulcolax 20 mg PO BID. -Convert IV to saline lock. -Encouraged ambulation and IS use.
[2017-06-25] MEDS ORDERED: Cyanocobalamin (Vitamin B12) 1,000 MCG/ML SDV IM ONE (09:00)
[2017-06-25] MEDS: Celecoxib 200 MG Cap PO SCH (09:22)
[2017-06-25] MEDS: Lisinopril 10 MG Tab PO SCH (09:23)
[2017-06-25] MEDS: Docusate Sodium 100 MG Cap PO SCH ×2 (09:23→21:03)
[2017-06-25] MEDS: Bisacodyl 5 MG Tab PO SCH ×2 (09:23→21:03)
[2017-06-25] MEDS: SCOPOLAMINE PATCH CHECK TOP SCH (09:24)
[2017-06-25] MEDS: Gabapentin 250 MG/5 ML Solution ML 470 ML Bottle PO SCH ×3 (09:28→21:06)
[2017-06-25] MEDS: Pantoprazole 40 MG Tab.CR PO SCH (14:08)
[2017-06-25] MEDS: Tamsulosin 0.4 MG Cap.ER PO SCH (21:03)
[2017-06-26] MEDS: Heparin Sodium 5,000 Units/ML Vial SUBCUT SCH ×4 (00:32→23:00)
[2017-06-26] MEDS: Acetaminophen Soln 650 MG/20.3 ML UD Cup PO SCH ×4 (02:58→20:43)
[2017-06-26] MEDS: Docusate Sodium 100 MG Cap PO SCH ×2 (08:33→20:43)
[2017-06-26] MEDS: Celecoxib 200 MG Cap PO SCH (08:33)
[2017-06-26] MEDS: Lisinopril 10 MG Tab PO SCH (08:33)
[2017-06-26] MEDS: Bisacodyl 10 MG Supp RECTAL SCH ×2 (08:33→20:43)
[2017-06-26] MEDS: Gabapentin 250 MG/5 ML Solution ML 470 ML Bottle PO SCH ×3 (08:43→20:43)
--- NOTE | 2017-06-26 08:43 | CR ---
Abdomen 2V AP Flat Upright HISTORY: post op ileus FINDINGS: There is gaseous distention in loops of colon. Scattered air-fluid levels are seen. There i s a large amount of fecal material in the distended ascending colon. No mass organomegaly can be seen . Skin lilly are redemonstrated there are surgical staple lines left midabdomen. Lung bases are rebecca ar. IMPRESSION: Distended colon with air-fluid levels. There is a large amount of fecal material in the a scending colon. Findings likely correlate with the clinical history of postoperative ileus. Continued follow-up is recommended.
--- NOTE | 2017-06-26 10:59 | PN ---
DATE OF SERVICE: 06/23/2017 SUBJECTIVE: Cyrus has been up ambulating. He is tolerating a diet well. He has not passed any flatus, feels full, distended pain. Surgical pain has been controlled. He has no other concerns or questions. OBJECTIVE: GENERAL: Cyrus Peralta is a pleasant 72-year-old male. He is alert and orientated, color pale. VITAL SIGNS: TPR 98.3, 114, 16, blood pressure 154/85. HEENT: Negative. NECK: Supple. HEART: Regular rate and rhythm. LUNGS: Clear. ABDOMEN: Distended. No bowel sounds are heard. It is firm. He does not feel burpy or gassy. Abdominal binder is on. Incision looks good. EXTREMITIES: Without peripheral edema. ASSESSMENT: Exploratory laparotomy with reduction of small bowel volvulus and closure of internal hernias, small bowel resection with revision, component of Maria Dolores-en-Y gastric bypass, revision of the JJ component of Maria Dolores-en-Y gastric bypass surgery, separate small colon resection, repair of incarcerated incisional hernia, repair of umbilical hernias and partial mastectomy. Date of surgery 06/23/2017. PLAN: 1. Diet: Regular diet and changed to full liquid diet. Discontinue Dulcolax tablets. 2. Dulcolax suppositories per rectum b.i.d. until BM. Abdominal flat and upright x-rays at 0400 hours starting tomorrow, 06/27/2017. 3. Good pulmonary toilet. We will evaluate p.r.n. or in the a.m. Desire Hale PA-C /[id number]
[2017-06-26] MEDS: Pantoprazole 40 MG Tab.CR PO SCH (14:00)
[2017-06-26] MEDS: Tamsulosin 0.4 MG Cap.ER PO SCH (20:43)
[2017-06-27] MEDS: Acetaminophen Soln 650 MG/20.3 ML UD Cup PO SCH ×4 (02:35→19:23)
[2017-06-27] MEDS: Celecoxib 200 MG Cap PO SCH (08:04)
[2017-06-27] MEDS: Heparin Sodium 5,000 Units/ML Vial SUBCUT SCH ×2 (08:07→15:48)
[2017-06-27] MEDS: Docusate Sodium 100 MG Cap PO SCH ×2 (08:08→20:27)
[2017-06-27] MEDS: Bisacodyl 10 MG Supp RECTAL SCH ×2 (08:08→19:23)
--- NOTE | 2017-06-27 09:20 | CR ---
Abdomen 2V AP Flat Upright HISTORY: post op ileus COMPARISON: 06/26/2017 FINDINGS: Gaseous distention of the proximal colon is redemonstrated with a large amount of fecal mat erial in the cecum and ascending colon. Small bowel loops do not appear dilated. Staple lines are red emonstrated left abdomen. Midline skin lilly are noted. No free air is seen. No mass or organomegal y is identified. IMPRESSION: Large amount of fecal material is redemonstrated in the cecum and descending colon. Gaseo us distention of the ascending and transverse colon appears similar to yesterday's exam. Postoperativ e changes are again noted.
[2017-06-27] MEDS: Bisacodyl 5 MG Tab PO SCH ×2 (10:08→20:28)
[2017-06-27] MEDS: Gabapentin 250 MG/5 ML Solution ML 470 ML Bottle PO SCH ×3 (10:09→20:32)
[2017-06-27] MEDS: Lisinopril 10 MG Tab PO SCH (10:10)
[2017-06-27] MEDS: Pantoprazole 40 MG Tab.CR PO SCH (13:37)
--- NOTE | 2017-06-27 18:58 | PCM.SURGPN ---
- General Info Date of Service: 06/27/17 Date of Surgery/Procedure: 06/23/17 POD#: 4 Post-Op Diagnosis: abdominal pain with small bowel volvulus and sigmoid volvulus Functional Status: Reports: Pain Controlled, Ambulating, Urinating - Review of Systems General: Reports: No Symptoms HEENT: Reports: No Symptoms Pulmonary: Reports: No Symptoms Cardiovascular: Reports: No Symptoms Gastrointestinal: Reports: Abdominal Pain, Constipation, Decreased Appetite, Nausea Genitourinary: Reports: No Symptoms Musculoskeletal: Reports: No Symptoms Skin: Reports: No Symptoms Neurological: Reports: No Symptoms Psychiatric: Reports: No Symptoms Systems Review Comment:: Patient reports that he has been feeling more bloated and uncomfortable. Has had little PO intake due to nausea and fear of vomiting. He states that he had a small BM at 0200 but nothing since. Denies flatus. He has been up walking multiple times today. - Patient Data Vitals - Most Recent: Last Vital Signs Temp 37.1 C 06/27/17 12:28 Pulse 78 06/27/17 12:28 Resp 16 06/27/17 12:28 BP 122/62 06/27/17 12:28 Pulse Ox 99 06/27/17 12:28 Weight - Most Recent: 107.6 kg I&O - Last 24 Hours: Intake & Output 06/27/17 06/27/17 06/27/17 06:59 14:59 22:59 Intake Total 600 870 Output Total 600 200 Balance 0 670 Med Orders - Current: Current Medications Acetaminophen (Tylenol) 650 mg PO Q6H [facility] Last Admin: 06/27/17 13:37 Dose: 650 mg Bisacodyl (Dulcolax) 10 mg RECTAL BID [facility] Last Admin: 06/27/17 08:08 Dose: 10 mg Bisacodyl (Dulcolax) 10 mg PO BID [facility] Last Admin: 06/27/17 10:08 Dose: 10 mg Celecoxib (Celebrex) 200 mg PO DAILY@0800 [facility] Last Admin: 06/27/17 08:04 Dose: 200 mg Diphenhydramine HCl (Benadryl) 25 - 50 mg IVPUSH Q4H PRN PRN Reason: ITCHING Docusate Sodium (Colace) 100 mg PO BID [facility] Last Admin: 06/27/17 08:08 Dose: 100 mg Gabapentin (Neurontin) 300 mg PO TID [facility] Last Admin: 06/27/17 13:39 Dose: 300 mg Heparin Sodium (Porcine) (Heparin Sodium) 5,000 units SUBCUT Q8H [facility] Last Admin: 06/27/17 15:48 Dose: 5,000 units Hydroxyzine HCl (Vistaril) 75 - 100 mg IM Q4H PRN PRN Reason: pain Labetalol HCl (Normodyne) 5 - 15 mg IVPUSH Q1H PRN PRN Reason: SBP over 160 OR DBP over 95 Lisinopril (Prinivil) 10 mg PO DAILY [facility] Last Admin: 06/27/17 10:10 Dose: 10 mg Metoclopramide HCl (Reglan) 10 mg IVPUSH Q6H PRN PRN Reason: NAUSEA NOT CONTROL BY ZOFRAN Ondansetron HCl (Zofran) 4 mg IVPUSH Q4H PRN PRN Reason: Nausea/Vomiting Ondansetron HCl (Zofran Odt) 4 mg PO Q4H PRN PRN Reason: Nausea/Vomiting Pantoprazole Sodium (Protonix) 40 mg PO Q24H [facility] Last Admin: 06/27/17 13:37 Dose: 40 mg Tamsulosin HCl (Flomax) 0.4 mg PO BEDTIME [facility] Last Admin: 06/26/17 20:43 Dose: 0.4 mg Discontinued Medications Bisacodyl (Dulcolax) 20 mg PO BID [facility] Last Admin: 06/25/17 21:03 Dose: 20 mg Ropivacaine 54 ml/Dexamethasone 8 mg/Epinephrine HCl 0.4 mg/ Sodium Chloride 23.6 ml 0 ml NERVRT ONETIME ONE Stop: 06/23/17 08:01 Last Admin: 06/23/17 08:29 Dose: 80 syringe Cyanocobalamin (Vitamin B12) 1,000 mcg IM ONETIME ONE Stop: 06/25/17 09:01 Last Admin: 06/25/17 09:23 Dose: 1,000 mcg Dexamethasone (Dexamethasone) Confirm Administered Dose 4 mg .ROUTE .STK-MED ONE Stop: 06/23/17 06:41 Fentanyl (Sublimaze) Confirm Administered Dose 250 mcg .ROUTE .STK-MED ONE Stop: 06/23/17 06:41 Fentanyl (Sublimaze) Confirm Administered Dose 100 mcg .ROUTE .STK-MED ONE Stop: 06/23/17 09:24 Glycopyrrolate (Robinul) Confirm Administered Dose 1 mg .ROUTE .STK-MED ONE Stop: 06/23/17 06:41 Hydromorphone HCl (Dilaudid Acid Etch Operator 15 Mg In Ns 30 Ml) 15 mg IV ASDIRECTED [facility]; Protocol Last Admin: 06/23/17 04:28 Dose: 15 mg Hydromorphone HCl (Dilaudid Acid Etch Operator 15 Mg In Ns 30 Ml) 0 mg IV ASDIRECTED PRN; Protocol PRN Reason: Pain Lactated Ringer's (Ringers, Lactated) 1,000 mls @ 1,000 mls/hr IV BOLUS ONE Stop: 06/23/17 02:16 Last Admin: 06/23/17 01:45 Dose: 1,000 mls/hr Sodium Chloride (Normal Saline) 85 mls @ 4 mls/sec IV ASDIRECTED STA Stop: 06/23/17 02:16 Last Admin: 06/23/17 02:28 Dose: 4 mls/sec Lactated Ringer's (Ringers, Lactated) 1,000 mls @ 200 mls/hr IV ASDIRECTED [facility] Last Admin: 06/23/17 03:30 Dose: 200 mls/hr Lidocaine HCl/Dextrose (Lidocaine 2 Gm/D5w 500 Ml) 2 gm in 500 mls @ 30 mls/hr IV .[id number] [facility] Stop: 06/24/17 00:39 Last Admin: 06/23/17 11:39 Dose: 2 mg/min, 30 mls/hr Ketamine HCl 100 mg/ Sodium (Chloride) 100 mls @ 24 mls/hr IV ASDIRECTED [facility] Stop: 06/23/17 10:00 Cefoxitin Sodium 2 gm/ Sodium (Chloride) 50 mls @ 100 mls/hr IV ONETIME ONE Stop: 06/23/17 08:29 Last Admin: 06/23/17 08:00 Dose: 100 mls/hr Dextrose/Lactated Ringer's (Dextrose 5%-Lactated Ringers) 1,000 mls @ 150 mls/ hr IV ASDIRECTED [facility] Last Admin: 06/23/17 11:38 Dose: 150 mls/hr Dextrose/Lactated Ringer's (Dextrose 5%-Lactated Ringers) 1,000 mls @ 175 mls/ hr IV ASDIRECTED [facility] Last Admin: 06/24/17 06:19 Dose: 175 mls/hr Multivitamins/Minerals 10 ml/Thiamine HCl 100 mg/ Chromium/Copper/Manganese/ Seleni/Zn 1 ml/ Dextrose/Lactated Ringer's 1,012 mls @ 175 mls/hr IV DAILY@ 1600 [facility] Last Admin: 06/23/17 17:36 Dose: 175 mls/hr Cefoxitin Sodium 2 gm/ Sodium (Chloride) 50 mls @ 100 mls/hr IV Q6H [facility] Stop: 06/24/17 08:29 Last Admin: 06/24/17 08:14 Dose: 100 mls/hr Dextrose/Lactated Ringer's (Dextrose 5%-Lactated Ringers) 1,000 mls @ 100 mls/ hr IV ASDIRECTED [facility] Last Admin: 06/25/17 01:24 Dose: 100 mls/hr Multivitamins/Minerals 10 ml/Thiamine HCl 100 mg/ Chromium/Copper/Manganese/ Seleni/Zn 1 ml/ Dextrose/Lactated Ringer's 1,012 mls @ 100 mls/hr IV DAILY@ 1600 [facility] Last Admin: 06/24/17 15:19 Dose: 100 mls/hr Iohexol (Omnipaque-300) 50 ml PO .ASDIRECTED STA Stop: 06/24/17 03:27 Last Admin: 06/24/17 03:35 Dose: 50 ml Iopamidol (Isovue-300 (61%)) 150 ml IV . DIRECTED [facility]A Stop: 06/23/17 02:16 Last Admin: 06/23/17 02:27 Dose: 150 ml Ketamine HCl (Ketalar) 40 mg IV ONETIME ONE Stop: 06/23/17 08:01 Last Admin: 06/23/17 11:39 Dose: Not Given Lidocaine HCl (Xylocaine 2%) 136 mg IVPUSH ONETIME ONE Stop: 06/23/17 08:01 Last Admin: 06/23/17 11:39 Dose: Not Given Meropenem (Merrem) Confirm Administered Dose 500 mg .ROUTE .STK-MED ONE Stop: 06/23/17 06:46 Last Admin: 06/23/17 09:14 Dose: 500 mg Metoclopramide HCl (Reglan) 10 mg IVPUSH ONETIME ONE Stop: 06/23/17 01:18 Last Admin: 06/23/17 01:45 Dose: 10 mg Miscellaneous Information (Remove Patch) 1 ea TRDERM ONETIME ONE Stop: 06/25/17 10:01 Last Admin: 06/25/17 09:24 Dose: 1 ea Naloxone HCl (Narcan) 0.1 mg IV ASDIRECTED PRN PRN Reason: decreased respiratory rate Neostigmine Methylsulfate (Neostigmine) Confirm Administered Dose 5 mg .ROUTE .STK-MED ONE Stop: 06/23/17 06:41 Scopolamine Patch (Check) 1 each TOP DAILY [facility] Stop: 06/25/17 12:01 Last Admin: 06/25/17 09:24 Dose: Not Given Ondansetron HCl (Zofran) Confirm Administered Dose 4 mg .ROUTE .STK-MED ONE Stop: 06/23/17 06:41 Pantoprazole Sodium (Protonix Iv) 40 mg IVPUSH Q24H [facility] Last Admin: 06/23/17 14:20 Dose: 40 mg Propofol (Diprivan 20 Ml) Confirm Administered Dose 200 mg .ROUTE .STK-MED ONE Stop: 06/23/17 06:41 Rocuronium [place] (Zemuron) Confirm Administered Dose 50 mg .ROUTE .STK-MED ONE Stop: 06/23/17 06:41 Rocuronium [place] (Zemuron) Confirm Administered Dose 50 mg .ROUTE .STK-MED ONE Stop: 06/23/17 09:12 Scopolamine (Transderm-Scop) 1.5 mg TOP Q72H [facility] Stop: 06/25/17 10:00 Last Admin: 06/23/17 14:19 Dose: 1.5 mg Succinylcholine Chloride (Quelicin) Confirm Administered Dose 200 mg .ROUTE .STK -MED ONE Stop: 06/23/17 06:41 - Exam Wound/Incisions: Dressing Dry and Intact, Other (binder in place) General: Alert, Oriented, Cooperative, No Acute Distress HEENT: Pupils Equal, Pupils Reactive Neck: Supple, Trachea Midline Lungs: Clear to Auscultation, Normal Respiratory Effort Cardiovascular: Regular Rate, Regular Rhythm GI/Abdominal Exam: Distended, Tender, Abnormal Bowel Sounds (hypoactive) Extremities: Non-Tender, Pedal Edema (trace to bilateral LE) Skin: Warm, Dry, Intact Neurological: No New Focal Deficit Psy/Mental Status: Alert, Normal Affect, Normal Mood - Problem List & Annotations (1) SBO (small bowel obstruction) SNOMED Code(s): 817627589 Code(s): K56.609 - UNSP INTESTNL OBST, UNSP TO PARTIAL VERSUS COMPLETE OBST Status: Acute Current Visit: Yes (2) Abdominal pain SNOMED Code(s): 72566135 Code(s): R10.9 - UNSPECIFIED ABDOMINAL PAIN Status: Acute Current Visit: No Qualifiers: Abdominal location: generalized Qualified Code(s): R10.84 - Generalized abdominal pain - Problem List Review Problem List Initiated/Reviewed/Updated: Yes - My Orders Last 24 Hours: Active Orders 24 hr Category Date Time Status Bariatric Diet [DIET] Diet 06/27/17 Breakfast Active Abdomen 2V AP Flat Upright [CR] DAILY Exams 06/28/17 04:00 Ordered Abdomen 2V AP Flat Upright [CR] DAILY Exams 06/28/17 08:15 Stop Req Abdomen 2V AP Flat Upright [CR] DAILY Exams 06/29/17 04:00 Ordered Abdomen 2V AP Flat Upright [CR] DAILY Exams 06/30/17 04:00 Ordered Bisacodyl [Dulcolax] Med 06/27/17 09:00 Active 10 mg PO BID Air Mattress [Pressure Reduction Mattress] [OM.PC] Oth 06/27/17 08:31 Ordered Routine Medication Orders Acetaminophen (Tylenol) 650 mg PO Q6H [facility] Last Admin: 06/27/17 13:37 Dose: 650 mg Admin: 06/27/17 08:07 Dose: 650 mg Admin: 06/27/17 02:35 Dose: 650 mg Admin: 06/26/17 20:43 Dose: 650 mg Admin: 06/26/17 14:00 Dose: 650 mg Admin: 06/26/17 08:33 Dose: 650 mg Admin: 06/26/17 02:58 Dose: 650 mg Admin: 06/25/17 21:03 Dose: 650 mg Admin: 06/25/17 14:07 Dose: 650 mg Admin: 06/25/17 09:24 Dose: 650 mg Admin: 06/25/17 01:24 Dose: 650 mg Admin: 06/24/17 21:47 Dose: 650 mg Admin: 06/24/17 14:11 Dose: 650 mg Admin: 06/24/17 08:16 Dose: 650 mg Admin: 06/24/17 02:04 Dose: 650 mg Admin: 06/23/17 20:00 Dose: 650 mg Admin: 06/23/17 14:20 Dose: 650 mg Bisacodyl (Dulcolax) 10 mg RECTAL BID [facility] Last Admin: 06/27/17 08:08 Dose: 10 mg Admin: 06/26/17 20:43 Dose: 10 mg Admin: 06/26/17 08:33 Dose: 10 mg Bisacodyl (Dulcolax) 10 mg PO BID [facility] Last Admin: 06/27/17 10:08 Dose: 10 mg Celecoxib (Celebrex) 200 mg PO DAILY@0800 [facility] Last Admin: 06/27/17 08:04 Dose: 200 mg Admin: 06/26/17 08:33 Dose: 200 mg Admin: 06/25/17 09:22 Dose: 200 mg Admin: 06/24/17 08:16 Dose: 200 mg Diphenhydramine HCl (Benadryl) 25 - 50 mg IVPUSH Q4H PRN PRN Reason: ITCHING Docusate Sodium (Colace) 100 mg PO BID [facility] Last Admin: 06/27/17 08:08 Dose: 100 mg Admin: 06/26/17 20:43 Dose: 100 mg Admin: 06/26/17 08:33 Dose: 100 mg Admin: 06/25/17 21:03 Dose: 100 mg Admin: 06/25/17 09:23 Dose: 100 mg Admin: 06/24/17 21:50 Dose: 100 mg Admin: 06/24/17 09:27 Dose: 100 mg Gabapentin (Neurontin) 300 mg PO TID [facility] Last Admin: 06/27/17 13:39 Dose: 300 mg Admin: 06/27/17 10:09 Dose: 300 mg Admin: 06/26/17 20:43 Dose: 300 mg Admin: 06/26/17 14:00 Dose: 300 mg Admin: 06/26/17 08:43 Dose: 300 mg Admin: 06/25/17 21:06 Dose: 300 mg Admin: 06/25/17 14:07 Dose: 300 mg Admin: 06/25/17 09:28 Dose: 300 mg Admin: 06/24/17 21:50 Dose: 300 mg Admin: 06/24/17 14:11 Dose: 300 mg Admin: 06/24/17 09:27 Dose: 300 mg Admin: 06/23/17 21:06 Dose: 300 mg Admin: 06/23/17 14:20 Dose: 300 mg Heparin Sodium (Porcine) (Heparin Sodium) 5,000 units SUBCUT Q8H [facility] Last Admin: 06/27/17 15:48 Dose: 5,000 units Admin: 06/27/17 08:07 Dose: 5,000 units Admin: 06/26/17 23:00 Dose: 5,000 units Admin: 06/26/17 17:26 Dose: 5,000 units Admin: 06/26/17 08:33 Dose: 5,000 units Admin: 06/26/17 00:32 Dose: 5,000 units Admin: 06/25/17 15:49 Dose: 5,000 units Admin: 06/25/17 09:24 Dose: 5,000 units Admin: 06/25/17 00:07 Dose: 5,000 units Admin: 06/24/17 16:59 Dose: 5,000 units Admin: 06/24/17 08:16 Dose: 5,000 units Admin: 06/23/17 23:57 Dose: 5,000 units Admin: 06/23/17 16:14 Dose: 5,000 units Hydroxyzine HCl (Vistaril) 75 - 100 mg IM Q4H PRN PRN Reason: pain Labetalol HCl (Normodyne) 5 - 15 mg IVPUSH Q1H PRN PRN Reason: SBP over 160 OR DBP over 95 Lisinopril (Prinivil) 10 mg PO DAILY [facility] Last Admin: 06/27/17 10:10 Dose: 10 mg Admin: 06/26/17 08:33 Dose: 10 mg Admin: 06/25/17 09:23 Dose: 10 mg Admin: 06/24/17 09:27 Dose: 10 mg Metoclopramide HCl (Reglan) 10 mg IVPUSH Q6H PRN PRN Reason: NAUSEA NOT CONTROL BY ZOFRAN Ondansetron HCl (Zofran) 4 mg IVPUSH Q4H PRN PRN Reason: Nausea/Vomiting Ondansetron HCl (Zofran Odt) 4 mg PO Q4H PRN PRN Reason: Nausea/Vomiting Pantoprazole Sodium (Protonix) 40 mg PO Q24H [facility] Last Admin: 06/27/17 13:37 Dose: 40 mg Admin: 06/26/17 14:00 Dose: 40 mg Admin: 06/25/17 14:08 Dose: 40 mg Admin: 06/24/17 14:11 Dose: 40 mg Tamsulosin HCl (Flomax) 0.4 mg PO BEDTIME [facility] Last Admin: 06/26/17 20:43 Dose: 0.4 mg Admin: 06/25/17 21:03 Dose: 0.4 mg Admin: 06/24/17 21:51 Dose: 0.4 mg Admin: 06/23/17 21:06 Dose: 0.4 mg - Assessment Assessment (Free Text/Narrative):: S/p exploratory laparotomy with revision of jejunojejunostomy, sigmoid colon resection, umbilical hernia repair, small bowel resection - Plan Plan (Free Text/Narrative):: -Dulcolax 10 mg PO BID. -Dulcolax 10 mg rectal BID. -Abdominal Flat and Upright X-rays tomorrow am. -Diet decreased to sips of clears only. -Encouraged ambulation and IS use.
[2017-06-27] MEDS: Dextrose 5%-Lactated Ringers 1,000 ML IV SCH (19:21)
[2017-06-27] MEDS: Tamsulosin 0.4 MG Cap.ER PO SCH (20:28)
[2017-06-28] MEDS: Heparin Sodium 5,000 Units/ML Vial SUBCUT SCH ×3 (00:45→17:04)
[2017-06-28] MEDS: Acetaminophen Soln 650 MG/20.3 ML UD Cup PO SCH ×4 (01:10→20:29)
[2017-06-28] MEDS: Bisacodyl 10 MG Supp RECTAL SCH (03:05)
[2017-06-28] MEDS: Dextrose 5%-Lactated Ringers 1,000 ML IV SCH (05:23)
[2017-06-28] MEDS: Celecoxib 200 MG Cap PO SCH (08:07)
[2017-06-28] MEDS: Bisacodyl 5 MG Tab PO SCH ×3 (08:08→21:47)
[2017-06-28] MEDS: Docusate Sodium 100 MG Cap PO SCH ×2 (08:08→20:31)
[2017-06-28] MEDS: Lisinopril 10 MG Tab PO SCH (08:09)
[2017-06-28] MEDS: Gabapentin 250 MG/5 ML Solution ML 470 ML Bottle PO SCH ×3 (08:11→20:33)
--- NOTE | 2017-06-28 08:44 | CR ---
Abdomen 2V AP Flat Upright HISTORY: Post op ileus. COMPARISON: 06/27/2017 FINDINGS: There are distended loops of small bowel and colon with scattered air-fluid levels. Spinous could represent postoperative ileus. Obstruction is not excluded. Appearance is similar to yesterday 's exam. Again seen is dilatation of the cecum and ascending colon with a large amount of fecal mater ial. No free air is identified. No mass organomegaly is seen. Midline skin lilly are again noted. IMPRESSION: Ileus versus partial obstruction. No significant change since yesterday's exam. Large kiara unt of fecal material is redemonstrated in nondistended cecum and ascending colon.
[2017-06-28] MEDS: Erythromycin Base 250 MG Cap.CR PO SCH ×2 (09:46→15:29)
--- NOTE | 2017-06-28 11:05 | PCM.SURGPN ---
- General Info Date of Service: 06/28/17 Date of Surgery/Procedure: 06/23/17 POD#: 5 Post-Op Diagnosis: abdominal pain with small bowel volvulus and sigmoid volvulus Admission Diagnosis/Problem: Abdominal pain - Patient Data Vitals - Most Recent: Last Vital Signs Temp 37.1 C 06/28/17 07:00 Pulse 104 H 06/28/17 07:00 Resp 16 06/28/17 07:00 BP 153/86 H 06/28/17 08:09 Pulse Ox 99 06/28/17 07:00 Weight - Most Recent: 107.6 kg I&O - Last 24 Hours: Intake & Output 06/27/17 06/28/17 06/28/17 22:59 06:59 14:59 Intake Total 60 1230 Output Total 500 350 Balance 60 730 -350 Med Orders - Current: Current Medications Acetaminophen (Tylenol) 650 mg PO Q6H [facility] Last Admin: 06/28/17 08:08 Dose: 650 mg Bisacodyl (Dulcolax) 10 mg PO BID [facility] Last Admin: 06/28/17 08:08 Dose: 10 mg Bisacodyl (Dulcolax) 10 mg RECTAL BID PRN PRN Reason: Constipation Celecoxib (Celebrex) 200 mg PO DAILY@0800 [facility] Last Admin: 06/28/17 08:07 Dose: 200 mg Diphenhydramine HCl (Benadryl) 25 - 50 mg IVPUSH Q4H PRN PRN Reason: ITCHING Docusate Sodium (Colace) 100 mg PO BID [facility] Last Admin: 06/28/17 08:08 Dose: 100 mg Erythromycin (Xiang-Tab) 250 mg PO Q8H [facility] Last Admin: 06/28/17 09:46 Dose: 250 mg Gabapentin (Neurontin) 300 mg PO TID [facility] Last Admin: 06/28/17 08:11 Dose: 300 mg Heparin Sodium (Porcine) (Heparin Sodium) 5,000 units SUBCUT Q8H [facility] Last Admin: 06/28/17 08:08 Dose: 5,000 units Hydroxyzine HCl (Vistaril) 75 - 100 mg IM Q4H PRN PRN Reason: pain Dextrose/Lactated Ringer's (Dextrose 5%-Lactated Ringers) 1,000 mls @ 100 mls/ hr IV ASDIRECTED [facility] Last Admin: 06/28/17 05:23 Dose: 100 mls/hr Labetalol HCl (Normodyne) 5 - 15 mg IVPUSH Q1H PRN PRN Reason: SBP over 160 OR DBP over 95 Lisinopril (Prinivil) 10 mg PO DAILY [facility] Last Admin: 06/28/17 08:09 Dose: 10 mg Metoclopramide HCl (Reglan) 10 mg IVPUSH Q6H PRN PRN Reason: NAUSEA NOT CONTROL BY ZOFRAN Ondansetron HCl (Zofran) 4 mg IVPUSH Q4H PRN PRN Reason: Nausea/Vomiting Last Admin: 06/27/17 21:38 Dose: 4 mg Ondansetron HCl (Zofran Odt) 4 mg PO Q4H PRN PRN Reason: Nausea/Vomiting Pantoprazole Sodium (Protonix) 40 mg PO Q24H [facility] Last Admin: 06/27/17 13:37 Dose: 40 mg Tamsulosin HCl (Flomax) 0.4 mg PO BEDTIME [facility] Last Admin: 06/27/17 20:28 Dose: 0.4 mg Discontinued Medications Bisacodyl (Dulcolax) 20 mg PO BID [facility] Last Admin: 06/25/17 21:03 Dose: 20 mg Bisacodyl (Dulcolax) 10 mg RECTAL BID [facility] Last Admin: 06/27/17 08:08 Dose: 10 mg Bisacodyl (Dulcolax) 10 mg RECTAL Q8H [facility] Last Admin: 06/28/17 03:05 Dose: 10 mg Ropivacaine 54 ml/Dexamethasone 8 mg/Epinephrine HCl 0.4 mg/ Sodium Chloride 23.6 ml 0 ml NERVRT ONETIME ONE Stop: 06/23/17 08:01 Last Admin: 06/23/17 08:29 Dose: 80 syringe Cyanocobalamin (Vitamin B12) 1,000 mcg IM ONETIME ONE Stop: 06/25/17 09:01 Last Admin: 06/25/17 09:23 Dose: 1,000 mcg Dexamethasone (Dexamethasone) Confirm Administered Dose 4 mg .ROUTE .STK-MED ONE Stop: 06/23/17 06:41 Fentanyl (Sublimaze) Confirm Administered Dose 250 mcg .ROUTE .STK-MED ONE Stop: 06/23/17 06:41 Fentanyl (Sublimaze) Confirm Administered Dose 100 mcg .ROUTE .STK-MED ONE Stop: 06/23/17 09:24 Glycopyrrolate (Robinul) Confirm Administered Dose 1 mg .ROUTE .STK-MED ONE Stop: 06/23/17 06:41 Hydromorphone HCl (Dilaudid Repair Cameraman 15 Mg In Ns 30 Ml) 15 mg IV ASDIRECTED [facility]; Protocol Last Admin: 06/23/17 04:28 Dose: 15 mg Hydromorphone HCl (Dilaudid Repair Cameraman 15 Mg In Ns 30 Ml) 0 mg IV ASDIRECTED PRN; Protocol PRN Reason: Pain Lactated Ringer's (Ringers, Lactated) 1,000 mls @ 1,000 mls/hr IV BOLUS ONE Stop: 06/23/17 02:16 Last Admin: 06/23/17 01:45 Dose: 1,000 mls/hr Sodium Chloride (Normal Saline) 85 mls @ 4 mls/sec IV ASDIRECTED [facility] Stop: 06/23/17 02:16 Last Admin: 06/23/17 02:28 Dose: 4 mls/sec Lactated Ringer's (Ringers, Lactated) 1,000 mls @ 200 mls/hr IV ASDIRECTED [facility] Last Admin: 06/23/17 03:30 Dose: 200 mls/hr Lidocaine HCl/Dextrose (Lidocaine 2 Gm/D5w 500 Ml) 2 gm in 500 mls @ 30 mls/hr IV .[id number] [facility] Stop: 06/24/17 00:39 Last Admin: 06/23/17 11:39 Dose: 2 mg/min, 30 mls/hr Ketamine HCl 100 mg/ Sodium (Chloride) 100 mls @ 24 mls/hr IV ASDIRECTED [facility] Stop: 06/23/17 10:00 Cefoxitin Sodium 2 gm/ Sodium (Chloride) 50 mls @ 100 mls/hr IV ONETIME ONE Stop: 06/23/17 08:29 Last Admin: 06/23/17 08:00 Dose: 100 mls/hr Dextrose/Lactated Ringer's (Dextrose 5%-Lactated Ringers) 1,000 mls @ 150 mls/ hr IV ASDIRECTED [facility] Last Admin: 06/23/17 11:38 Dose: 150 mls/hr Dextrose/Lactated Ringer's (Dextrose 5%-Lactated Ringers) 1,000 mls @ 175 mls/ hr IV ASDIRECTED [facility] Last Admin: 06/24/17 06:19 Dose: 175 mls/hr Multivitamins/Minerals 10 ml/Thiamine HCl 100 mg/ Chromium/Copper/Manganese/ Seleni/Zn 1 ml/ Dextrose/Lactated Ringer's 1,012 mls @ 175 mls/hr IV DAILY@ 1600 [facility] Last Admin: 06/23/17 17:36 Dose: 175 mls/hr Cefoxitin Sodium 2 gm/ Sodium (Chloride) 50 mls @ 100 mls/hr IV Q6H [facility] Stop: 06/24/17 08:29 Last Admin: 06/24/17 08:14 Dose: 100 mls/hr Dextrose/Lactated Ringer's (Dextrose 5%-Lactated Ringers) 1,000 mls @ 100 mls/ hr IV ASDIRECTED [facility] Last Admin: 06/25/17 01:24 Dose: 100 mls/hr Multivitamins/Minerals 10 ml/Thiamine HCl 100 mg/ Chromium/Copper/Manganese/ Seleni/Zn 1 ml/ Dextrose/Lactated Ringer's 1,012 mls @ 100 mls/hr IV DAILY@ 1600 [facility] Last Admin: 06/24/17 15:19 Dose: 100 mls/hr Iohexol (Omnipaque-300) 50 ml PO .ASDIRECTED [facility] Stop: 06/24/17 03:27 Last Admin: 06/24/17 03:35 Dose: 50 ml Iopamidol (Isovue-300 (61%)) 150 ml IV . DIRECTED [facility] Stop: 06/23/17 02:16 Last Admin: 06/23/17 02:27 Dose: 150 ml Ketamine HCl (Ketalar) 40 mg IV ONETIME ONE Stop: 06/23/17 08:01 Last Admin: 06/23/17 11:39 Dose: Not Given Lidocaine HCl (Xylocaine 2%) 136 mg IVPUSH ONETIME ONE Stop: 06/23/17 08:01 Last Admin: 06/23/17 11:39 Dose: Not Given Meropenem (Merrem) Confirm Administered Dose 500 mg .ROUTE .STK-MED ONE Stop: 06/23/17 06:46 Last Admin: 06/23/17 09:14 Dose: 500 mg Metoclopramide HCl (Reglan) 10 mg IVPUSH ONETIME ONE Stop: 06/23/17 01:18 Last Admin: 06/23/17 01:45 Dose: 10 mg Miscellaneous Information (Remove Patch) 1 ea TRDERM ONETIME ONE Stop: 06/25/17 10:01 Last Admin: 06/25/17 09:24 Dose: 1 ea Naloxone HCl (Narcan) 0.1 mg IV ASDIRECTED PRN PRN Reason: decreased respiratory rate Neostigmine Methylsulfate (Neostigmine) Confirm Administered Dose 5 mg .ROUTE .STK-MED ONE Stop: 06/23/17 06:41 Scopolamine Patch (Check) 1 each TOP DAILY [facility] Stop: 06/25/17 12:01 Last Admin: 06/25/17 09:24 Dose: Not Given Ondansetron HCl (Zofran) Confirm Administered Dose 4 mg .ROUTE .STK-MED ONE Stop: 06/23/17 06:41 Pantoprazole Sodium (Protonix Iv) 40 mg IVPUSH Q24H [facility] Last Admin: 06/23/17 14:20 Dose: 40 mg Propofol (Diprivan 20 Ml) Confirm Administered Dose 200 mg .ROUTE .STK-MED ONE Stop: 06/23/17 06:41 Rocuronium Star (Zemuron) Confirm Administered Dose 50 mg .ROUTE .STK-MED ONE Stop: 06/23/17 06:41 Rocuronium Star (Zemuron) Confirm Administered Dose 50 mg .ROUTE .STK-MED ONE Stop: 06/23/17 09:12 Scopolamine (Transderm-Scop) 1.5 mg TOP Q72H [facility] Stop: 06/25/17 10:00 Last Admin: 06/23/17 14:19 Dose: 1.5 mg Succinylcholine Chloride (Quelicin) Confirm Administered Dose 200 mg .ROUTE .STK -MED ONE Stop: 06/23/17 06:41 - Problem List & Annotations (1) SBO (small bowel obstruction) SNOMED Code(s): 324490234 Code(s): K56.609 - UNSP INTESTNL OBST, UNSP TO PARTIAL VERSUS COMPLETE OBST Status: Acute Current Visit: Yes (2) Abdominal pain SNOMED Code(s): 65942994 Code(s): R10.9 - UNSPECIFIED ABDOMINAL PAIN Status: Acute Current Visit: No Qualifiers: Abdominal location: generalized Qualified Code(s): R10.84 - Generalized abdominal pain - Problem List Review Problem List Initiated/Reviewed/Updated: Yes - My Orders Last 24 Hours: Active Orders 24 hr Category Date Time Status Full Liquid Diet [DIET] Diet 06/28/17 Breakfast Ordered Abdomen 2V AP Flat Upright [CR] DAILY Exams 06/29/17 04:00 Ordered Abdomen 2V AP Flat Upright [CR] DAILY Exams 06/30/17 04:00 Ordered Bisacodyl [Dulcolax] Med 06/28/17 08:01 Active 10 mg RECTAL BID PRN Dextrose 5%-Lactated Ringers 1,000 ml Med 06/27/17 19:15 Active IV ASDIRECTED Erythromycin Base [Xiang-Tab] Med 06/28/17 08:00 Active 250 mg PO Q8H Medication Orders Acetaminophen (Tylenol) 650 mg PO Q6H [facility] Last Admin: 06/28/17 08:08 Dose: 650 mg Admin: 06/28/17 01:10 Dose: 650 mg Admin: 06/27/17 19:23 Dose: 650 mg Admin: 06/27/17 13:37 Dose: 650 mg Admin: 06/27/17 08:07 Dose: 650 mg Admin: 06/27/17 02:35 Dose: 650 mg Admin: 06/26/17 20:43 Dose: 650 mg Admin: 06/26/17 14:00 Dose: 650 mg Admin: 06/26/17 08:33 Dose: 650 mg Admin: 06/26/17 02:58 Dose: 650 mg Admin: 06/25/17 21:03 Dose: 650 mg Admin: 06/25/17 14:07 Dose: 650 mg Admin: 06/25/17 09:24 Dose: 650 mg Admin: 06/25/17 01:24 Dose: 650 mg Admin: 06/24/17 21:47 Dose: 650 mg Admin: 06/24/17 14:11 Dose: 650 mg Admin: 06/24/17 08:16 Dose: 650 mg Admin: 06/24/17 02:04 Dose: 650 mg Admin: 06/23/17 20:00 Dose: 650 mg Admin: 06/23/17 14:20 Dose: 650 mg Bisacodyl (Dulcolax) 10 mg PO BID [facility] Last Admin: 06/28/17 08:08 Dose: 10 mg Admin: 06/27/17 20:28 Dose: 10 mg Admin: 06/27/17 10:08 Dose: 10 mg Bisacodyl (Dulcolax) 10 mg RECTAL BID PRN PRN Reason: Constipation Celecoxib (Celebrex) 200 mg PO DAILY@0800 [facility] Last Admin: 06/28/17 08:07 Dose: 200 mg Admin: 06/27/17 08:04 Dose: 200 mg Admin: 06/26/17 08:33 Dose: 200 mg Admin: 06/25/17 09:22 Dose: 200 mg Admin: 06/24/17 08:16 Dose: 200 mg Diphenhydramine HCl (Benadryl) 25 - 50 mg IVPUSH Q4H PRN PRN Reason: ITCHING Docusate Sodium (Colace) 100 mg PO BID [facility] Last Admin: 06/28/17 08:08 Dose: 100 mg Admin: 06/27/17 20:27 Dose: 100 mg Admin: 06/27/17 08:08 Dose: 100 mg Admin: 06/26/17 20:43 Dose: 100 mg Admin: 06/26/17 08:33 Dose: 100 mg Admin: 06/25/17 21:03 Dose: 100 mg Admin: 06/25/17 09:23 Dose: 100 mg Admin: 06/24/17 21:50 Dose: 100 mg Admin: 06/24/17 09:27 Dose: 100 mg Erythromycin (Xiang-Tab) 250 mg PO Q8H [facility] Last Admin: 06/28/17 09:46 Dose: 250 mg Gabapentin (Neurontin) 300 mg PO TID [facility] Last Admin: 06/28/17 08:11 Dose: 300 mg Admin: 06/27/17 20:32 Dose: 300 mg Admin: 06/27/17 13:39 Dose: 300 mg Admin: 06/27/17 10:09 Dose: 300 mg Admin: 06/26/17 20:43 Dose: 300 mg Admin: 06/26/17 14:00 Dose: 300 mg Admin: 06/26/17 08:43 Dose: 300 mg Admin: 06/25/17 21:06 Dose: 300 mg Admin: 06/25/17 14:07 Dose: 300 mg Admin: 06/25/17 09:28 Dose: 300 mg Admin: 06/24/17 21:50 Dose: 300 mg Admin: 06/24/17 14:11 Dose: 300 mg Admin: 06/24/17 09:27 Dose: 300 mg Admin: 06/23/17 21:06 Dose: 300 mg Admin: 06/23/17 14:20 Dose: 300 mg Heparin Sodium (Porcine) (Heparin Sodium) 5,000 units SUBCUT Q8H [facility] Last Admin: 06/28/17 08:08 Dose: 5,000 units Admin: 06/28/17 00:45 Dose: 5,000 units Admin: 06/27/17 15:48 Dose: 5,000 units Admin: 06/27/17 08:07 Dose: 5,000 units Admin: 06/26/17 23:00 Dose: 5,000 units Admin: 06/26/17 17:26 Dose: 5,000 units Admin: 06/26/17 08:33 Dose: 5,000 units Admin: 06/26/17 00:32 Dose: 5,000 units Admin: 06/25/17 15:49 Dose: 5,000 units Admin: 06/25/17 09:24 Dose: 5,000 units Admin: 06/25/17 00:07 Dose: 5,000 units Admin: 06/24/17 16:59 Dose: 5,000 units Admin: 06/24/17 08:16 Dose: 5,000 units Admin: 06/23/17 23:57 Dose: 5,000 units Admin: 06/23/17 16:14 Dose: 5,000 units Hydroxyzine HCl (Vistaril) 75 - 100 mg IM Q4H PRN PRN Reason: pain Dextrose/Lactated Ringer's (Dextrose 5%-Lactated Ringers) 1,000 mls @ 100 mls/ hr IV ASDIRECTED [facility] Last Admin: 06/28/17 05:23 Dose: 100 mls/hr Infusion: 06/28/17 05:21 Dose: 100 mls/hr Admin: 06/27/17 19:21 Dose: 100 mls/hr Labetalol HCl (Normodyne) 5 - 15 mg IVPUSH Q1H PRN PRN Reason: SBP over 160 OR DBP over 95 Lisinopril (Prinivil) 10 mg PO DAILY [facility] Last Admin: 06/28/17 08:09 Dose: 10 mg Admin: 06/27/17 10:10 Dose: 10 mg Admin: 06/26/17 08:33 Dose: 10 mg Admin: 06/25/17 09:23 Dose: 10 mg Admin: 06/24/17 09:27 Dose: 10 mg Metoclopramide HCl (Reglan) 10 mg IVPUSH Q6H PRN PRN Reason: NAUSEA NOT CONTROL BY ZOFRAN Ondansetron HCl (Zofran) 4 mg IVPUSH Q4H PRN PRN Reason: Nausea/Vomiting Last Admin: 06/27/17 21:38 Dose: 4 mg Ondansetron HCl (Zofran Odt) 4 mg PO Q4H PRN PRN Reason: Nausea/Vomiting Pantoprazole Sodium (Protonix) 40 mg PO Q24H [facility] Last Admin: 06/27/17 13:37 Dose: 40 mg Admin: 06/26/17 14:00 Dose: 40 mg Admin: 06/25/17 14:08 Dose: 40 mg Admin: 06/24/17 14:11 Dose: 40 mg Tamsulosin HCl (Flomax) 0.4 mg PO BEDTIME [facility] Last Admin: 06/27/17 20:28 Dose: 0.4 mg Admin: 06/26/17 20:43 Dose: 0.4 mg Admin: 06/25/17 21:03 Dose: 0.4 mg Admin: 06/24/17 21:51 Dose: 0.4 mg Admin: 06/23/17 21:06 Dose: 0.4 mg - Assessment Assessment (Free Text/Narrative):: S/p exploratory laparotomy with revision of jejunojejunostomy, sigmoid colon resection, umbilical hernia repair, small bowel resection - Plan Plan (Free Text/Narrative):: -Dulcolax 10 mg rectal prn for constipation. -Abdominal Flat and Upright X-rays tomorrow am. -Full liquid diet today. -Erythromycin 250 mg PO TID. -Encouraged ambulation and IS use.
[2017-06-28] MEDS: Pantoprazole 40 MG Tab.CR PO SCH (15:28)
--- NOTE | 2017-06-28 17:47 | PCM.SURGPN ---
- General Info Date of Service: 06/28/17 Date of Surgery/Procedure: 06/23/17 POD#: 5 Post-Op Diagnosis: abdominal pain with small bowel volvulus and sigmoid volvulus Admission Diagnosis/Problem: Abdominal pain Functional Status: Reports: Pain Controlled, Tolerating Diet, Ambulating, Urinating, Incentive Spirometry - Review of Systems General: Reports: No Symptoms HEENT: Reports: No Symptoms Pulmonary: Reports: No Symptoms Cardiovascular: Reports: No Symptoms Gastrointestinal: Reports: Flatus Genitourinary: Reports: No Symptoms Musculoskeletal: Reports: No Symptoms Skin: Reports: No Symptoms Neurological: Reports: No Symptoms Psychiatric: Reports: No Symptoms Systems Review Comment:: Patient reports that he is feeling much better today after having 4 BMs. He states that he is tolerating his diet without nausea. He is hopeful to discharge tomorrow. - Patient Data Vitals - Most Recent: Last Vital Signs Temp 36.6 C 06/28/17 15:34 Pulse 86 06/28/17 15:34 Resp 16 06/28/17 15:34 BP 156/89 H 06/28/17 15:34 Pulse Ox 99 06/28/17 15:34 Weight - Most Recent: 107.6 kg I&O - Last 24 Hours: Intake & Output 06/28/17 06/28/17 06/28/17 06:59 14:59 22:59 Intake Total 1230 480 240 Output Total 500 450 Balance 730 30 240 Med Orders - Current: Current Medications Acetaminophen (Tylenol) 650 mg PO Q6H [facility] Last Admin: 06/28/17 15:29 Dose: 650 mg Bisacodyl (Dulcolax) 10 mg PO BID [facility] Last Admin: 06/28/17 08:08 Dose: 10 mg Bisacodyl (Dulcolax) 10 mg RECTAL BID PRN PRN Reason: Constipation Celecoxib (Celebrex) 200 mg PO DAILY@0800 [facility] Last Admin: 06/28/17 08:07 Dose: 200 mg Diphenhydramine HCl (Benadryl) 25 - 50 mg IVPUSH Q4H PRN PRN Reason: ITCHING Docusate Sodium (Colace) 100 mg PO BID [facility] Last Admin: 06/28/17 08:08 Dose: 100 mg Erythromycin (Xiang-Tab) 250 mg PO Q8H [facility] Last Admin: 06/28/17 15:29 Dose: 250 mg Gabapentin (Neurontin) 300 mg PO TID [facility] Last Admin: 06/28/17 15:28 Dose: 300 mg Heparin Sodium (Porcine) (Heparin Sodium) 5,000 units SUBCUT Q8H [facility] Last Admin: 06/28/17 17:04 Dose: 5,000 units Hydroxyzine HCl (Vistaril) 75 - 100 mg IM Q4H PRN PRN Reason: pain Dextrose/Lactated Ringer's (Dextrose 5%-Lactated Ringers) 1,000 mls @ 100 mls/ hr IV ASDIRECTED [facility] Last Admin: 06/28/17 05:23 Dose: 100 mls/hr Labetalol HCl (Normodyne) 5 - 15 mg IVPUSH Q1H PRN PRN Reason: SBP over 160 OR DBP over 95 Lisinopril (Prinivil) 10 mg PO DAILY [facility] Last Admin: 06/28/17 08:09 Dose: 10 mg Metoclopramide HCl (Reglan) 10 mg IVPUSH Q6H PRN PRN Reason: NAUSEA NOT CONTROL BY ZOFRAN Ondansetron HCl (Zofran) 4 mg IVPUSH Q4H PRN PRN Reason: Nausea/Vomiting Last Admin: 06/27/17 21:38 Dose: 4 mg Ondansetron HCl (Zofran Odt) 4 mg PO Q4H PRN PRN Reason: Nausea/Vomiting Pantoprazole Sodium (Protonix) 40 mg PO Q24H [facility] Last Admin: 06/28/17 15:28 Dose: 40 mg Tamsulosin HCl (Flomax) 0.4 mg PO BEDTIME [facility] Last Admin: 06/27/17 20:28 Dose: 0.4 mg Discontinued Medications Bisacodyl (Dulcolax) 20 mg PO BID [facility] Last Admin: 06/25/17 21:03 Dose: 20 mg Bisacodyl (Dulcolax) 10 mg RECTAL BID [facility] Last Admin: 06/27/17 08:08 Dose: 10 mg Bisacodyl (Dulcolax) 10 mg RECTAL Q8H [facility] Last Admin: 06/28/17 03:05 Dose: 10 mg Ropivacaine 54 ml/Dexamethasone 8 mg/Epinephrine HCl 0.4 mg/ Sodium Chloride 23.6 ml 0 ml NERVRT ONETIME ONE Stop: 06/23/17 08:01 Last Admin: 06/23/17 08:29 Dose: 80 syringe Cyanocobalamin (Vitamin B12) 1,000 mcg IM ONETIME ONE Stop: 06/25/17 09:01 Last Admin: 06/25/17 09:23 Dose: 1,000 mcg Dexamethasone (Dexamethasone) Confirm Administered Dose 4 mg .ROUTE .STK-MED ONE Stop: 06/23/17 06:41 Fentanyl (Sublimaze) Confirm Administered Dose 250 mcg .ROUTE .STK-MED ONE Stop: 06/23/17 06:41 Fentanyl (Sublimaze) Confirm Administered Dose 100 mcg .ROUTE .STK-MED ONE Stop: 06/23/17 09:24 Glycopyrrolate (Robinul) Confirm Administered Dose 1 mg .ROUTE .STK-MED ONE Stop: 06/23/17 06:41 Hydromorphone HCl (Dilaudid [employer] 15 Mg In Ns 30 Ml) 15 mg IV ASDIRECTED DECLAN; Protocol Last Admin: 06/23/17 04:28 Dose: 15 mg Hydromorphone HCl (Dilaudid [employer] G[employer] Technician 15 Mg In Ns 30 Ml) 0 mg IV ASDIRECTED PRN; Protocol PRN Reason: Pain Lactated Ringer's (Ringers, Lactated) 1,000 mls @ 1,000 mls/hr IV BOLUS ONE Stop: 06/23/17 02:16 Last Admin: 06/23/17 01:45 Dose: 1,000 mls/hr Sodium Chloride (Normal Saline) 85 mls @ 4 mls/sec IV ASDIRECTED STA Stop: 06/23/17 02:16 Last Admin: 06/23/17 02:28 Dose: 4 mls/sec Lactated Ringer's (Ringers, Lactated) 1,000 mls @ 200 mls/hr IV ASDIRECTED DECLAN Last Admin: 06/23/17 03:30 Dose: 200 mls/hr Lidocaine HCl/Dextrose (Lidocaine 2 Gm/D5w 500 Ml) 2 gm in 500 mls @ 30 mls/hr IV .[id number] DECLAN Stop: 06/24/17 00:39 Last Admin: 06/23/17 11:39 Dose: 2 mg/min, 30 mls/hr Ketamine HCl 100 mg/ Sodium (Chloride) 100 mls @ 24 mls/hr IV ASDIRECTED DECLAN Stop: 06/23/17 10:00 Cefoxitin Sodium 2 gm/ Sodium (Chloride) 50 mls @ 100 mls/hr IV ONETIME ONE Stop: 06/23/17 08:29 Last Admin: 06/23/17 08:00 Dose: 100 mls/hr Dextrose/Lactated Ringer's (Dextrose 5%-Lactated Ringers) 1,000 mls @ 150 mls/ hr IV ASDIRECTED [facility] Last Admin: 06/23/17 11:38 Dose: 150 mls/hr Dextrose/Lactated Ringer's (Dextrose 5%-Lactated Ringers) 1,000 mls @ 175 mls/ hr IV ASDIRECTED [facility] Last Admin: 06/24/17 06:19 Dose: 175 mls/hr Multivitamins/Minerals 10 ml/Thiamine HCl 100 mg/ Chromium/Copper/Manganese/ Seleni/Zn 1 ml/ Dextrose/Lactated Ringer's 1,012 mls @ 175 mls/hr IV DAILY@ 1600 [facility] Last Admin: 06/23/17 17:36 Dose: 175 mls/hr Cefoxitin Sodium 2 gm/ Sodium (Chloride) 50 mls @ 100 mls/hr IV Q6H [facility] Stop: 06/24/17 08:29 Last Admin: 06/24/17 08:14 Dose: 100 mls/hr Dextrose/Lactated Ringer's (Dextrose 5%-Lactated Ringers) 1,000 mls @ 100 [facility]ls[facility] Admin: 06/25/17 01:24 Dose: 100 mls/hr Multivitamins/Minerals 10 ml/Thiamine HCl 100 mg/ Chromium/Copper/Manganese/ Seleni/Zn 1 ml/ Dextrose/Lactated Ringer's 1,012 mls @ 100 mls/hr IV DAILY@ 1600 [facility] Last Admin: 06/24/17 15:19 Dose: 100 mls/hr Iohexol (Omnipaque-300) 50 ml PO .ASDIRECTED STA Stop: 06/24/17 03:27 Last Admin: 06/24/17 03:35 Dose: 50 ml Iopamidol (Isovue-300 (61%)) 150 ml IV . DIRECTED STA Stop: 06/23/17 02:16 Last Admin: 06/23/17 02:27 Dose: 150 ml Ketamine HCl (Ketalar) 40 mg IV ONETIME ONE Stop: 06/23/17 08:01 Last Admin: 06/23/17 11:39 Dose: Not Given Lidocaine HCl (Xylocaine 2%) 136 mg IVPUSH ONETIME ONE Stop: 06/23/17 08:01 Last Admin: 06/23/17 11:39 Dose: Not Given Meropenem (Merrem) Confirm Administered Dose 500 mg .ROUTE .STK-MED ONE Stop: 06/23/17 06:46 Last Admin: 06/23/17 09:14 Dose: 500 mg Metoclopramide HCl (Reglan) 10 mg IVPUSH ONETIME ONE Stop: 06/23/17 01:18 Last Admin: 06/23/17 01:45 Dose: 10 mg Miscellaneous Information (Remove Patch) 1 ea TRDERM ONETIME ONE Stop: 06/25/17 10:01 Last Admin: 06/25/17 09:24 Dose: 1 ea Naloxone HCl (Narcan) 0.1 mg IV ASDIRECTED PRN PRN Reason: decreased respiratory rate Neostigmine Methylsulfate (Neostigmine) Confirm Administered Dose 5 mg .ROUTE .STK-MED ONE Stop: 06/23/17 06:41 Scopolamine Patch (Check) 1 each TOP DAILY [facility] Stop: 06/25/17 12:01 Last Admin: 06/25/17 09:24 Dose: Not Given Ondansetron HCl (Zofran) Confirm Administered Dose 4 mg .ROUTE .STK-MED ONE Stop: 06/23/17 06:41 Pantoprazole Sodium (Protonix Iv) 40 mg IVPUSH Q24H [facility] Last Admin: 06/23/17 14:20 Dose: 40 mg Propofol (Diprivan 20 Ml) Confirm Administered Dose 200 mg .ROUTE .STK-MED ONE Stop: 06/23/17 06:41 Rocuronium [place] (Zemuron) Confirm Administered Dose 50 mg .ROUTE .STK-MED ONE Stop: 06/23/17 06:41 Rocuronium [place] (Zemuron) Confirm Administered Dose 50 mg .ROUTE .STK-MED ONE Stop: 06/23/17 09:12 Scopolamine (Transderm-Scop) 1.5 mg TOP Q72H [facility] Stop: 06/25/17 10:00 Last Admin: 06/23/17 14:19 Dose: 1.5 mg Succinylcholine Chloride (Quelicin) Confirm Administered Dose 200 mg .ROUTE .STK -MED ONE Stop: 06/23/17 06:41 - Exam Wound/Incisions: Other (binder) General: Alert, Oriented, Cooperative, No Acute Distress HEENT: Pupils Equal, Pupils Reactive Neck: Supple, Trachea Midline Lungs: Clear to Auscultation, Normal Respiratory Effort Cardiovascular: Regular Rate, Regular Rhythm GI/Abdominal Exam: Normal Bowel Sounds, Distended (improved ) Extremities: Normal Inspection, Pedal Edema (trace to bilateral LE) Skin: Warm, Dry, Intact Neurological: No New Focal Deficit Psy/Mental Status: Alert, Normal Affect, Normal Mood - Problem List & Annotations (1) SBO (small bowel obstruction) SNOMED Code(s): 705761615 Code(s): K56.609 - UNSP INTESTNL OBST, UNSP TO PARTIAL VERSUS COMPLETE OBST Status: Acute Current Visit: Yes (2) Abdominal pain SNOMED Code(s): 06359578 Code(s): R10.9 - UNSPECIFIED ABDOMINAL PAIN Status: Acute Current Visit: No Qualifiers: Abdominal location: generalized Qualified Code(s): R10.84 - Generalized abdominal pain - Problem List Review Problem List Initiated/Reviewed/Updated: Yes - My Orders Last 24 Hours: Active Orders 24 hr Category Date Time Status Full Liquid Diet [DIET] Diet 06/28/17 Breakfast Ordered Abdomen 2V AP Flat Upright [CR] DAILY Exams 06/29/17 04:00 Ordered Abdomen 2V AP Flat Upright [CR] DAILY Exams 06/30/17 04:00 Ordered Bisacodyl [Dulcolax] Med 06/28/17 08:01 Active 10 mg RECTAL BID PRN Dextrose 5%-Lactated Ringers 1,000 ml Med 06/27/17 19:15 Active IV ASDIRECTED Erythromycin Base [Xiang-Tab] Med 06/28/17 08:00 Active 250 mg PO Q8H Medication Orders Acetaminophen (Tylenol) 650 mg PO Q6H [facility] Last Admin: 06/28/17 15:29 Dose: 650 mg Admin: 06/28/17 08:08 Dose: 650 mg Admin: 06/28/17 01:10 Dose: 650 mg Admin: 06/27/17 19:23 Dose: 650 mg Admin: 06/27/17 13:37 Dose: 650 mg Admin: 06/27/17 08:07 Dose: 650 mg Admin: 06/27/17 02:35 Dose: 650 mg Admin: 06/26/17 20:43 Dose: 650 mg Admin: 06/26/17 14:00 Dose: 650 mg Admin: 06/26/17 08:33 Dose: 650 mg Admin: 06/26/17 02:58 Dose: 650 mg Admin: 06/25/17 21:03 Dose: 650 mg Admin: 06/25/17 14:07 Dose: 650 mg Admin: 06/25/17 09:24 Dose: 650 mg Admin: 06/25/17 01:24 Dose: 650 mg Admin: 06/24/17 21:47 Dose: 650 mg Admin: 06/24/17 14:11 Dose: 650 mg Admin: 06/24/17 08:16 Dose: 650 mg Admin: 06/24/17 02:04 Dose: 650 mg Admin: 06/23/17 20:00 Dose: 650 mg Admin: 06/23/17 14:20 Dose: 650 mg Bisacodyl (Dulcolax) 10 mg PO BID [facility] Last Admin: 06/28/17 08:08 Dose: 10 mg Admin: 06/27/17 20:28 Dose: 10 mg Admin: 06/27/17 10:08 Dose: 10 mg Bisacodyl (Dulcolax) 10 mg RECTAL BID PRN PRN Reason: Constipation Celecoxib (Celebrex) 200 mg PO DAILY@0800 [facility] Last Admin: 06/28/17 08:07 Dose: 200 mg Admin: 06/27/17 08:04 Dose: 200 mg Admin: 06/26/17 08:33 Dose: 200 mg Admin: 06/25/17 09:22 Dose: 200 mg Admin: 06/24/17 08:16 Dose: 200 mg Diphenhydramine HCl (Benadryl) 25 - 50 mg IVPUSH Q4H PRN PRN Reason: ITCHING Docusate Sodium (Colace) 100 mg PO BID [facility] Last Admin: 06/28/17 08:08 Dose: 100 mg Admin: 06/27/17 20:27 Dose: 100 mg Admin: 06/27/17 08:08 Dose: 100 mg Admin: 06/26/17 20:43 Dose: 100 mg Admin: 06/26/17 08:33 Dose: 100 mg Admin: 06/25/17 21:03 Dose: 100 mg Admin: 06/25/17 09:23 Dose: 100 mg Admin: 06/24/17 21:50 Dose: 100 mg Admin: 06/24/17 09:27 Dose: 100 mg Erythromycin (Xiang-Tab) 250 mg PO Q8H [facility] Last Admin: 06/28/17 15:29 Dose: 250 mg Admin: 06/28/17 09:46 Dose: 250 mg Gabapentin (Neurontin) 300 mg PO TID [facility] Last Admin: 06/28/17 15:28 Dose: 300 mg Admin: 06/28/17 08:11 Dose: 300 mg Admin: 06/27/17 20:32 Dose: 300 mg Admin: 06/27/17 13:39 Dose: 300 mg Admin: 06/27/17 10:09 Dose: 300 mg Admin: 06/26/17 20:43 Dose: 300 mg Admin: 06/26/17 14:00 Dose: 300 mg Admin: 06/26/17 08:43 Dose: 300 mg Admin: 06/25/17 21:06 Dose: 300 mg Admin: 06/25/17 14:07 Dose: 300 mg Admin: 06/25/17 09:28 Dose: 300 mg Admin: 06/24/17 21:50 Dose: 300 mg Admin: 06/24/17 14:11 Dose: 300 mg Admin: 06/24/17 09:27 Dose: 300 mg Admin: 06/23/17 21:06 Dose: 300 mg Admin: 06/23/17 14:20 Dose: 300 mg Heparin Sodium (Porcine) (Heparin Sodium) 5,000 units SUBCUT Q8H [facility] Last Admin: 06/28/17 17:04 Dose: 5,000 units Admin: 06/28/17 08:08 Dose: 5,000 units Admin: 06/28/17 00:45 Dose: 5,000 units Admin: 06/27/17 15:48 Dose: 5,000 units Admin: 06/27/17 08:07 Dose: 5,000 units Admin: 06/26/17 23:00 Dose: 5,000 units Admin: 06/26/17 17:26 Dose: 5,000 units Admin: 06/26/17 08:33 Dose: 5,000 units Admin: 06/26/17 00:32 Dose: 5,000 units Admin: 06/25/17 15:49 Dose: 5,000 units Admin: 06/25/17 09:24 Dose: 5,000 units Admin: 06/25/17 00:07 Dose: 5,000 units Admin: 06/24/17 16:59 Dose: 5,000 units Admin: 06/24/17 08:16 Dose: 5,000 units Admin: 06/23/17 23:57 Dose: 5,000 units Admin: 06/23/17 16:14 Dose: 5,000 units Hydroxyzine HCl (Vistaril) 75 - 100 mg IM Q4H PRN PRN Reason: pain Dextrose/Lactated Ringer's (Dextrose 5%-Lactated Ringers) 1,000 mls @ 100 mls/ hr IV ASDIRECTED [facility] Last Admin: 06/28/17 05:23 Dose: 100 mls/hr Infusion: 06/28/17 05:21 Dose: 100 mls/hr Admin: 06/27/17 19:21 Dose: 100 mls/hr Labetalol HCl (Normodyne) 5 - 15 mg IVPUSH Q1H PRN PRN Reason: SBP over 160 OR DBP over 95 Lisinopril (Prinivil) 10 mg PO DAILY [facility] Last Admin: 06/28/17 08:09 Dose: 10 mg Admin: 06/27/17 10:10 Dose: 10 mg Admin: 06/26/17 08:33 Dose: 10 mg Admin: 06/25/17 09:23 Dose: 10 mg Admin: 06/24/17 09:27 Dose: 10 mg Metoclopramide HCl (Reglan) 10 mg IVPUSH Q6H PRN PRN Reason: NAUSEA NOT CONTROL BY ZOFRAN Ondansetron HCl (Zofran) 4 mg IVPUSH Q4H PRN PRN Reason: Nausea/Vomiting Last Admin: 06/27/17 21:38 Dose: 4 mg Ondansetron HCl (Zofran Odt) 4 mg PO Q4H PRN PRN Reason: Nausea/Vomiting Pantoprazole Sodium (Protonix) 40 mg PO Q24H [facility] Last Admin: 06/28/17 15:28 Dose: 40 mg Admin: 06/27/17 13:37 Dose: 40 mg Admin: 06/26/17 14:00 Dose: 40 mg Admin: 06/25/17 14:08 Dose: 40 mg Admin: 06/24/17 14:11 Dose: 40 mg Tamsulosin HCl (Flomax) 0.4 mg PO BEDTIME [facility]CL[facility] Last Admin: 06/27/17 20:28 Dose: 0.4 mg Admin: 06/26/17 20:43 Dose: 0.4 mg Admin: 06/25/17 21:03 Dose: 0.4 mg Admin: 06/24/17 21:51 Dose: 0.4 mg Admin: 06/23/17 21:06 Dose: 0.4 mg - Assessment Assessment (Free Text/Narrative):: S/p exploratory laparotomy with revision of jejunojejunostomy, sigmoid colon resection, umbilical hernia repair, small bowel resection - Plan Plan (Free Text/Narrative):: -Dulcolax 10 mg rectal prn for constipation. -Abdominal Flat and Upright X-rays tomorrow am. -Full liquid diet today. -Erythromycin 250 mg PO TID. -Encouraged ambulation and IS use.
[2017-06-28] MEDS: Tamsulosin 0.4 MG Cap.ER PO SCH (20:31)
[2017-06-29] MEDS: Heparin Sodium 5,000 Units/ML Vial SUBCUT SCH ×3 (00:23→15:19)
[2017-06-29] MEDS: Erythromycin Base 250 MG Cap.CR PO SCH (00:23)
[2017-06-29] MEDS: Acetaminophen Soln 650 MG/20.3 ML UD Cup PO SCH ×4 (02:14→19:29)
[2017-06-29] MEDS: Bisacodyl 10 MG Supp RECTAL PRN (04:09)
[2017-06-29] MEDS ORDERED: Sodium Chloride 0.9% 10 ML Syringe FLUSH PRN (06:46)
--- NOTE | 2017-06-29 07:23 | PCM.SURGPN ---
- General Info Date of Service: 06/29/17 Date of Surgery/Procedure: 06/23/17 POD#: 6 Post-Op Diagnosis: abdominal pain with small bowel volvulus and sigmoid volvulus Admission Diagnosis/Problem: Abdominal pain Functional Status: Reports: Pain Controlled, Ambulating, Urinating, Incentive Spirometry - Review of Systems General: Reports: No Symptoms HEENT: Reports: No Symptoms Pulmonary: Reports: No Symptoms Cardiovascular: Reports: No Symptoms Gastrointestinal: Reports: Abdominal Pain, Decreased Appetite, Flatus, Nausea ( improved since last evening) Genitourinary: Reports: No Symptoms Musculoskeletal: Reports: No Symptoms Skin: Reports: No Symptoms Neurological: Reports: No Symptoms Psychiatric: Reports: No Symptoms Systems Review Comment:: Patient reports that he is feeling bloated and uncomfortable this morning, but slightly better after just passing some gas and having a BM. He states that he was quite nauseated last night due to his bloating, however this has improved today. He states that he continues to walk often. - Patient Data Vitals - Most Recent: Last Vital Signs Temp 36.4 C 06/29/17 02:19 Pulse 77 06/29/17 02:19 Resp 15 06/29/17 02:19 BP 163/87 H 06/29/17 02:19 Pulse Ox 96 06/29/17 02:19 Weight - Most Recent: 107.6 kg I&O - Last 24 Hours: Intake & Output 06/28/17 06/29/17 06/29/17 22:59 06:59 14:59 Intake Total 240 900 Output Total 350 Balance 240 550 Med Orders - Current: Current Medications Acetaminophen (Tylenol) 650 mg PO Q6H [facility] Last Admin: 06/29/17 02:14 Dose: 650 mg Bisacodyl (Dulcolax) 10 mg PO BID [facility] Last Admin: 06/28/17 21:47 Dose: 10 mg Bisacodyl (Dulcolax) 10 mg RECTAL BID PRN PRN Reason: Constipation Last Admin: 06/29/17 04:09 Dose: 10 mg Celecoxib (Celebrex) 200 mg PO DAILY@0800 [facility] Last Admin: 06/28/17 08:07 Dose: 200 mg Docusate Sodium (Colace) 100 mg PO BID [facility] Last Admin: 06/28/17 20:31 Dose: 100 mg Gabapentin (Neurontin) 300 mg PO TID [facility] Last Admin: 06/28/17 20:33 Dose: 300 mg Heparin Sodium (Porcine) (Heparin Sodium) 5,000 units SUBCUT Q8H [facility] Last Admin: 06/29/17 00:23 Dose: 5,000 units Hydroxyzine HCl (Vistaril) 75 - 100 mg IM Q4H PRN PRN Reason: pain Dextrose/Lactated Ringer's (Dextrose 5%-Lactated Ringers) 1,000 mls @ 100 mls/ hr IV ASDIRECTED [facility] Lisinopril (Prinivil) 10 mg PO DAILY [facility] Last Admin: 06/28/17 08:09 Dose: 10 mg Ondansetron HCl (Zofran Odt) 4 mg PO Q4H PRN PRN Reason: Nausea/Vomiting Last Admin: 06/29/17 02:17 Dose: 4 mg Pantoprazole Sodium (Protonix) 40 mg PO Q24H [facility] Last Admin: 06/28/17 15:28 Dose: 40 mg Sodium Chloride (Saline Flush) 10 ml FLUSH ASDIRECTED PRN PRN Reason: Keep Vein Open Tamsulosin HCl (Flomax) 0.4 mg PO BEDTIME [facility] Last Admin: 06/28/17 20:31 Dose: 0.4 mg Discontinued Medications Bisacodyl (Dulcolax) 20 mg PO BID [facility] Last Admin: 06/25/17 21:03 Dose: 20 mg Bisacodyl (Dulcolax) 10 mg RECTAL BID [facility] Last Admin: 06/27/17 08:08 Dose: 10 mg Bisacodyl (Dulcolax) 10 mg RECTAL Q8H [facility] Last Admin: 06/28/17 03:05 Dose: 10 mg Ropivacaine 54 ml/Dexamethasone 8 mg/Epinephrine HCl 0.4 mg/ Sodium Chloride 23.6 ml 0 ml NERVRT ONETIME ONE Stop: 06/23/17 08:01 Last Admin: 06/23/17 08:29 Dose: 80 syringe Cyanocobalamin (Vitamin B12) 1,000 mcg IM ONETIME ONE Stop: 06/25/17 09:01 Last Admin: 06/25/17 09:23 Dose: 1,000 mcg Dexamethasone (Dexamethasone) Confirm Administered Dose 4 mg .ROUTE .STK-MED ONE Stop: 06/23/17 06:41 Diphenhydramine HCl (Benadryl) 25 - 50 mg IVPUSH Q4H PRN PRN Reason: ITCHING Erythromycin (Xiang-Tab) 250 mg PO Q8H [facility] Last Admin: 06/29/17 00:23 Dose: 250 mg Fentanyl (Sublimaze) Confirm Administered Dose 250 mcg .ROUTE .STK-MED ONE Stop: 06/23/17 06:41 Fentanyl (Sublimaze) Confirm Administered Dose 100 mcg .ROUTE .STK-MED ONE Stop: 06/23/17 09:24 Glycopyrrolate (Robinul) Confirm Administered Dose 1 mg .ROUTE .STK-MED ONE Stop: 06/23/17 06:41 Hydromorphone HCl (Dilaudid [employer] 15 Mg In Ns 30 Ml) 15 mg IV ASDIRECTED [facility]; Protocol Last Admin: 06/23/17 04:28 Dose: 15 mg Hydromorphone HCl (Dilaudid [employer] 15 Mg In Ns 30 Ml) 0 mg IV ASDIRECTED PRN; Protocol PRN Reason: Pain Lactated Ringer's (Ringers, Lactated) 1,000 mls @ 1,000 mls/hr IV BOLUS ONE Stop: 06/23/17 02:16 Last Admin: 06/23/17 01:45 Dose: 1,000 mls/hr Sodium Chloride (Normal Saline) 85 mls @ 4 mls/sec IV ASDIRECTED [facility] Stop: 06/23/17 02:16 Last Admin: 06/23/17 02:28 Dose: 4 mls/sec Lactated Ringer's (Ringers, Lactated) 1,000 mls @ 200 mls/hr IV ASDIRECTED [facility] Last Admin: 06/23/17 03:30 Dose: 200 mls/hr Lidocaine HCl/Dextrose (Lidocaine 2 Gm/D5w 500 Ml) 2 gm in 500 mls @ 30 mls/hr IV .[id number] [facility] Stop: 06/24/17 00:39 Last Admin: 06/23/17 11:39 Dose: 2 mg/min, 30 mls/hr Ketamine HCl 100 mg/ Sodium (Chloride) 100 mls @ 24 mls/hr IV ASDIRECTED [facility] Stop: 06/23/17 10:00 Cefoxitin Sodium 2 gm/ Sodium (Chloride) 50 mls @ 100 mls/hr IV ONETIME ONE Stop: 06/23/17 08:29 Last Admin: 06/23/17 08:00 Dose: 100 mls/hr Dextrose/Lactated Ringer's (Dextrose 5%-Lactated Ringers) 1,000 mls @ 150 mls/ hr IV ASDIRECTED [facility] Last Admin: 06/23/17 11:38 Dose: 150 mls/hr Dextrose/Lactated Ringer's (Dextrose 5%-Lactated Ringers) 1,000 mls @ 175 mls/ hr IV ASDIRECTED [facility] Last Admin: 06/24/17 06:19 Dose: 175 mls/hr Multivitamins/Minerals 10 ml/Thiamine HCl 100 mg/ Chromium/Copper/Manganese/ Seleni/Zn 1 ml/ Dextrose/Lactated Ringer's 1,012 mls @ 175 mls/hr IV DAILY@ 1600 [facility] Last Admin: 06/23/17 17:36 Dose: 175 mls/hr Cefoxitin Sodium 2 gm/ Sodium (Chloride) 50 mls @ 100 mls/hr IV Q6H [facility] Stop: 06/24/17 08:29 Last Admin: 06/24/17 08:14 Dose: 100 mls/hr Dextrose/Lactated Ringer's (Dextrose 5%-Lactated Ringers) 1,000 mls @ 100 mls/ hr IV ASDIRECTED [facility] Last Admin: 06/25/17 01:24 Dose: 100 mls/hr Multivitamins/Minerals 10 ml/Thiamine HCl 100 mg/ Chromium/Copper/Manganese/ Seleni/Zn 1 ml/ Dextrose/Lactated Ringer's 1,012 mls @ 100 mls/hr IV DAILY@ 1600 [facility] Last Admin: 06/24/17 15:19 Dose: 100 mls/hr Dextrose/Lactated Ringer's (Dextrose 5%-Lactated Ringers) 1,000 mls @ 100 mls/ hr IV ASDIRECTED [facility] Last Admin: 06/28/17 05:23 Dose: 100 mls/hr Iohexol (Omnipaque-300) 50 ml PO .ASDIRECTED [facility] Stop: 06/24/17 03:27 Last Admin: 06/24/17 03:35 Dose: 50 ml Iopamidol (Isovue-300 (61%)) 150 ml IV . DIRECTED [facility] Stop: 06/23/17 02:16 Last Admin: 06/23/17 02:27 Dose: 150 ml Ketamine HCl (Ketalar) 40 mg IV ONETIME ONE Stop: 06/23/17 08:01 Last Admin: 06/23/17 11:39 Dose: Not Given Labetalol HCl (Normodyne) 5 - 15 mg IVPUSH Q1H PRN PRN Reason: SBP over 160 OR DBP over 95 Lidocaine HCl (Xylocaine 2%) 136 mg IVPUSH ONETIME ONE Stop: 06/23/17 08:01 Last Admin: 06/23/17 11:39 Dose: Not Given Meropenem (Merrem) Confirm Administered Dose 500 mg .ROUTE .STK-MED ONE Stop: 06/23/17 06:46 Last Admin: 06/23/17 09:14 Dose: 500 mg Metoclopramide HCl (Reglan) 10 mg IVPUSH ONETIME ONE Stop: 06/23/17 01:18 Last Admin: 06/23/17 01:45 Dose: 10 mg Metoclopramide HCl (Reglan) 10 mg IVPUSH Q6H PRN PRN Reason: NAUSEA NOT CONTROL BY ZOFRAN Miscellaneous Information (Remove Patch) 1 ea TRDERM ONETIME ONE Stop: 06/25/17 10:01 Last Admin: 06/25/17 09:24 Dose: 1 ea Naloxone HCl (Narcan) 0.1 mg IV ASDIRECTED PRN PRN Reason: decreased respiratory rate Neostigmine Methylsulfate (Neostigmine) Confirm Administered Dose 5 mg .ROUTE .STK-MED ONE Stop: 06/23/17 06:41 Scopolamine Patch (Check) 1 each TOP DAILY [facility] Stop: 06/25/17 12:01 Last Admin: 06/25/17 09:24 Dose: Not Given Ondansetron HCl (Zofran) Confirm Administered Dose 4 mg .ROUTE .STK-MED ONE Stop: 06/23/17 06:41 Ondansetron HCl (Zofran) 4 mg IVPUSH Q4H PRN PRN Reason: Nausea/Vomiting Last Admin: 06/27/17 21:38 Dose: 4 mg Pantoprazole Sodium (Protonix Iv) 40 mg IVPUSH Q24H [facility] Last Admin: 06/23/17 14:20 Dose: 40 mg Propofol (Diprivan 20 Ml) Confirm Administered Dose 200 mg .ROUTE .STK-MED ONE Stop: 06/23/17 06:41 Rocuronium [place] (Zemuron) Confirm Administered Dose 50 mg .ROUTE .STK-MED ONE Stop: 06/23/17 06:41 Rocuronium [place] (Zemuron) Confirm Administered Dose 50 mg .ROUTE .STK-MED ONE Stop: 06/23/17 09:12 Scopolamine (Transderm-Scop) 1.5 mg TOP Q72H [facility] Stop: 06/25/17 10:00 Last Admin: 06/23/17 14:19 Dose: 1.5 mg Succinylcholine Chloride (Quelicin) Confirm Administered Dose 200 mg .ROUTE .STK -MED ONE Stop: 06/23/17 06:41 - Exam Wound/Incisions: Other (binder) General: Alert, Oriented, Cooperative, No Acute Distress HEENT: Pupils Equal, Pupils Reactive Neck: Supple, Trachea Midline Lungs: Clear to Auscultation, Normal Respiratory Effort Cardiovascular: Regular Rate, Regular Rhythm GI/Abdominal Exam: Normal Bowel Sounds, Distended, Tender (to LLQ with palpation ) Extremities: Non-Tender, Pedal Edema (trace edema to bilateral LE) Skin: Warm, Dry, Intact Neurological: No New Focal Deficit Psy/Mental Status: Alert, Normal Affect, Normal Mood - Problem List & Annotations (1) SBO (small bowel obstruction) SNOMED Code(s): 838318487 Code(s): K56.609 - UNSP INTESTNL OBST, UNSP TO PARTIAL VERSUS COMPLETE OBST Status: Acute Current Visit: Yes (2) Abdominal pain SNOMED Code(s): 74989031 Code(s): R10.9 - UNSPECIFIED ABDOMINAL PAIN Status: Acute Current Visit: No Qualifiers: Abdominal location: generalized Qualified Code(s): R10.84 - Generalized abdominal pain - Problem List Review Problem List Initiated/Reviewed/Updated: Yes - My Orders Last 24 Hours: Active Orders 24 hr Category Date Time Status Peripheral IV Care [RC] . DIRECTED Care 06/29/17 06:47 Active Full Liquid Diet [DIET] Diet 06/28/17 Breakfast Ordered Abdomen 2V AP Flat Upright [CR] DAILY Exams 06/29/17 04:00 Taken Abdomen 2V AP Flat Upright [CR] DAILY Exams 06/30/17 04:00 Ordered Bisacodyl [Dulcolax] Med 06/28/17 08:01 Active 10 mg RECTAL BID PRN Dextrose 5%-Lactated Ringers 1,000 ml Med 06/29/17 06:45 Active IV ASDIRECTED Sodium Chloride 0.9% [Saline Flush] Med 06/29/17 06:46 Active 10 ml FLUSH ASDIRECTED PRN Peripheral IV Discontinue [OM.PC] Routine Oth 06/28/17 18:55 Ordered Peripheral IV Insertion Adult [OM.PC] Routine Oth 06/29/17 06:46 Ordered Medication Orders Acetaminophen (Tylenol) 650 mg PO Q6H [facility] Last Admin: 06/29/17 02:14 Dose: 650 mg Admin: 06/28/17 20:29 Dose: 650 mg Admin: 06/28/17 15:29 Dose: 650 mg Admin: 06/28/17 08:08 Dose: 650 mg Admin: 06/28/17 01:10 Dose: 650 mg Admin: 06/27/17 19:23 Dose: 650 mg Admin: 06/27/17 13:37 Dose: 650 mg Admin: 06/27/17 08:07 Dose: 650 mg Admin: 06/27/17 02:35 Dose: 650 mg Admin: 06/26/17 20:43 Dose: 650 mg Admin: 06/26/17 14:00 Dose: 650 mg Admin: 06/26/17 08:33 Dose: 650 mg Admin: 06/26/17 02:58 Dose: 650 mg Admin: 06/25/17 21:03 Dose: 650 mg Admin: 06/25/17 14:07 Dose: 650 mg Admin: 06/25/17 09:24 Dose: 650 mg Admin: 06/25/17 01:24 Dose: 650 mg Admin: 06/24/17 21:47 Dose: 650 mg Admin: 06/24/17 14:11 Dose: 650 mg Admin: 06/24/17 08:16 Dose: 650 mg Admin: 06/24/17 02:04 Dose: 650 mg Admin: 06/23/17 20:00 Dose: 650 mg Admin: 06/23/17 14:20 Dose: 650 mg Bisacodyl (Dulcolax) 10 mg PO BID [facility] Admin: 06/28/17 21:47 Dose: 10 mg Admin: 06/28/17 08:08 Dose: 10 mg Admin: 06/27/17 20:28 Dose: 10 mg Admin: 06/27/17 10:08 Dose: 10 mg Bisacodyl (Dulcolax) 10 mg RECTAL BID PRN PRN Reason: Constipation Last Admin: 06/29/17 04:09 Dose: 10 mg Celecoxib (Celebrex) 200 mg PO DAILY@0800 [facility] Last Admin: 06/28/17 08:07 Dose: 200 mg Admin: 06/27/17 08:04 Dose: 200 mg Admin: 06/26/17 08:33 Dose: 200 mg Admin: 06/25/17 09:22 Dose: 200 mg Admin: 06/24/17 08:16 Dose: 200 mg Docusate Sodium (Colace) 100 mg PO BID [facility] Last Admin: 06/28/17 20:31 Dose: 100 mg Admin: 06/28/17 08:08 Dose: 100 mg Admin: 06/27/17 20:27 Dose: 100 mg Admin: 06/27/17 08:08 Dose: 100 mg Admin: 06/26/17 20:43 Dose: 100 mg Admin: 06/26/17 08:33 Dose: 100 mg Admin: 06/25/17 21:03 Dose: 100 mg Admin: 06/25/17 09:23 Dose: 100 mg Admin: 06/24/17 21:50 Dose: 100 mg Admin: 06/24/17 09:27 Dose: 100 mg Gabapentin (Neurontin) 300 mg PO TID [facility] Last Admin: 06/28/17 20:33 Dose: 300 mg Admin: 06/28/17 15:28 Dose: 300 mg Admin: 06/28/17 08:11 Dose: 300 mg Admin: 06/27/17 20:32 Dose: 300 mg Admin: 06/27/17 13:39 Dose: 300 mg Admin: 06/27/17 10:09 Dose: 300 mg Admin: 06/26/17 20:43 Dose: 300 mg Admin: 06/26/17 14:00 Dose: 300 mg Admin: 06/26/17 08:43 Dose: 300 mg Admin: 06/25/17 21:06 Dose: 300 mg Admin: 06/25/17 14:07 Dose: 300 mg Admin: 06/25/17 09:28 Dose: 300 mg Admin: 06/24/17 21:50 Dose: 300 mg Admin: 06/24/17 14:11 Dose: 300 mg Admin: 06/24/17 09:27 Dose: 300 mg Admin: 06/23/17 21:06 Dose: 300 mg Admin: 06/23/17 14:20 Dose: 300 mg Heparin Sodium (Porcine) (Heparin Sodium) 5,000 units SUBCUT Q8H [facility] Last Admin: 06/29/17 00:23 Dose: 5,000 units Admin: 06/28/17 17:04 Dose: 5,000 units Admin: 06/28/17 08:08 Dose: 5,000 units Admin: 06/28/17 00:45 Dose: 5,000 units Admin: 06/27/17 15:48 Dose: 5,000 units Admin: 06/27/17 08:07 Dose: 5,000 units Admin: 06/26/17 23:00 Dose: 5,000 units Admin: 06/26/17 17:26 Dose: 5,000 units Admin: 06/26/17 08:33 Dose: 5,000 units Admin: 06/26/17 00:32 Dose: 5,000 units Admin: 06/25/17 15:49 Dose: 5,000 units Admin: 06/25/17 09:24 Dose: 5,000 units Admin: 06/25/17 00:07 Dose: 5,000 units Admin: 06/24/17 16:59 Dose: 5,000 units Admin: 06/24/17 08:16 Dose: 5,000 units Admin: 06/23/17 23:57 Dose: 5,000 units Admin: 06/23/17 16:14 Dose: 5,000 units Hydroxyzine HCl (Vistaril) 75 - 100 mg IM Q4H PRN PRN Reason: pain Dextrose/Lactated Ringer's (Dextrose 5%-Lactated Ringers) 1,000 mls @ 100 mls/ hr IV ASDIRECTED [facility] Lisinopril (Prinivil) 10 mg PO DAILY [facility] Last Admin: 06/28/17 08:09 Dose: 10 mg Admin: 06/27/17 10:10 Dose: 10 mg Admin: 06/26/17 08:33 Dose: 10 mg Admin: 06/25/17 09:23 Dose: 10 mg Admin: 06/24/17 09:27 Dose: 10 mg Ondansetron HCl (Zofran Odt) 4 mg PO Q4H PRN PRN Reason: Nausea/Vomiting Last Admin: 06/29/17 02:17 Dose: 4 mg Pantoprazole Sodium (Protonix) 40 mg PO Q24H [facility] Last Admin: 06/28/17 15:28 Dose: 40 mg Admin: 06/27/17 13:37 Dose: 40 mg Admin: 06/26/17 14:00 Dose: 40 mg Admin: 06/25/17 14:08 Dose: 40 mg Admin: 06/24/17 14:11 Dose: 40 mg Sodium Chloride (Saline Flush) 10 ml FLUSH ASDIRECTED PRN PRN Reason: Keep Vein Open Tamsulosin HCl (Flomax) 0.4 mg PO BEDTIME [facility] Last Admin: 06/28/17 20:31 Dose: 0.4 mg Admin: 06/27/17 20:28 Dose: 0.4 mg Admin: 06/26/17 20:43 Dose: 0.4 mg Admin: 06/25/17 21:03 Dose: 0.4 mg Admin: 06/24/17 21:51 Dose: 0.4 mg Admin: 06/23/17 21:06 Dose: 0.4 mg - Assessment Assessment (Free Text/Narrative):: S/p exploratory laparotomy with revision of jejunojejunostomy, sigmoid colon resection, umbilical hernia repair, small bowel resection - Plan Plan (Free Text/Narrative):: -Restart IV with D5LR @ 100 mL/hr. -Decrease diet to sips of clear liquids only. -IV Reglan 10 mg q 6 hours. -Continue Erythromycin 250 mg TID. -Dulcolax 10 mg rectal BID prn for constipation. -Dulcolax 10 mg PO BID. -Abdominal Flat and Upright X-rays tomorrow am. -CBC, CMP, Mg, Phos in am. -Encouraged ambulation and IS use.
[2017-06-29] MEDS: Bisacodyl 5 MG Tab PO SCH ×2 (08:02→20:44)
[2017-06-29] MEDS: Docusate Sodium 100 MG Cap PO SCH ×2 (08:02→20:45)
[2017-06-29] MEDS: Lisinopril 10 MG Tab PO SCH (08:02)
[2017-06-29] MEDS: Celecoxib 200 MG Cap PO SCH (08:03)
[2017-06-29] MEDS: Gabapentin 250 MG/5 ML Solution ML 470 ML Bottle PO SCH ×3 (08:05→20:47)
[2017-06-29] MEDS: Dextrose 5%-Lactated Ringers 1,000 ML IV SCH ×2 (09:28→19:28)
[2017-06-29] MEDS: Metoclopramide 10 MG/2 ML SDV IVPUSH SCH ×3 (11:43→22:11)
[2017-06-29] MEDS: Pantoprazole 40 MG Tab.CR PO SCH (15:16)
[2017-06-29] MEDS: Tamsulosin 0.4 MG Cap.ER PO SCH (20:45)
[2017-06-30] MEDS: Acetaminophen Soln 650 MG/20.3 ML UD Cup PO SCH ×4 (02:01→19:39)
[2017-06-30] MEDS: Heparin Sodium 5,000 Units/ML Vial SUBCUT SCH ×4 (02:01→23:33)
[2017-06-30] MEDS: Metoclopramide 10 MG/2 ML SDV IVPUSH SCH ×4 (04:05→21:00)
[2017-06-30] MEDS: Dextrose 5%-Lactated Ringers 1,000 ML IV SCH ×2 (05:28→15:40)
[2017-06-30] MEDS: Celecoxib 200 MG Cap PO SCH (07:58)
[2017-06-30] MEDS: Docusate Sodium 100 MG Cap PO SCH ×2 (08:01→20:55)
[2017-06-30] MEDS: Lisinopril 10 MG Tab PO SCH (08:01)
[2017-06-30] MEDS: Bisacodyl 5 MG Tab PO SCH ×2 (08:01→20:55)
[2017-06-30] MEDS: Gabapentin 250 MG/5 ML Solution ML 470 ML Bottle PO SCH ×3 (08:04→20:59)
[2017-06-30] MEDS ORDERED: Magnesium Citrate Solution 296 ML Bottle PO ONE (11:00)
[2017-06-30] MEDS: Pantoprazole 40 MG Tab.CR PO SCH (14:49)
--- NOTE | 2017-06-30 17:24 | PN ---
DATE OF SERVICE: 06/30/2017 The patient has been afebrile with stable vital signs. He is up and moving quite well. He did have some large bowel movements as well as passing quite a bit of gas. Abdomen is less distended, but still abnormally distended to some extent. Abdominal x-ray still shows a large amount of air in stool present, particularly in the area of the right colon and hepatic flexure. We will continue to give him ongoing bowel stimulation. First, I think we will give him a bottle of magnesium citrate to take orally. Otherwise, we will limit the amount of oral intake until things are getting a little bit better. Recheck abdominal x-ray tomorrow. If he is still quite a bit full tomorrow, we might try a Gastrografin enema to see if that might facilitate him cleaning out the colon more efficiently. One option also would be some neostigmine, but we will likely try the Gastrografin enema first. Gregg Ramsey MD /[id number]
[2017-06-30] MEDS: Tamsulosin 0.4 MG Cap.ER PO SCH (20:55)
[2017-06-30] MEDS: Bisacodyl 10 MG Supp RECTAL PRN (23:41)
[2017-07-01] MEDS: Acetaminophen Soln 650 MG/20.3 ML UD Cup PO SCH ×4 (01:00→19:34)
[2017-07-01] MEDS: Dextrose 5%-Lactated Ringers 1,000 ML IV SCH ×3 (01:01→21:15)
[2017-07-01] MEDS: Metoclopramide 10 MG/2 ML SDV IVPUSH SCH ×4 (04:31→21:05)
--- NOTE | 2017-07-01 08:49 | PN ---
DATE OF SERVICE: 06/29/2017 The patient continues to become distended after he eats. He is moving his bowels, but on 2 occasions when we started feeding him again, he once again developed marked abdominal distention. Abdominal x-rays show a large amount of air within the colon, particularly proximal to the anastomosis, but he is getting quite a bit of air down into the distal rectum as well today. He does not appear to be infected per se. The plan will be to back down on the oral intake once again. He is having some increased nausea with the use of erythromycin, which might be contributing to that, as particularly it doesn't seem to be helping with the GI motility. At this point, we will add some Reglan to the IV mix. Continue bowel stimulation. Recheck some abdominal x-rays tomorrow. We will restart an IV at maintenance rate. If he hasn't shown significant improvement by tomorrow, we may consider doing the neomycin technique used for colonic pseudoobstruction. Gregg Ramsey MD /[id number]
--- NOTE | 2017-07-01 08:50 | CR ---
Abdomen 2V AP Flat Upright CLINICAL HISTORY: Ileus FINDINGS: There is moderate to of colonic and small bowel distention with scattered air-fluid levels. No free air is identified. Distention has increased since the prior study. IMPRESSION: Slight increase in small bowel and colonic distention may represent persistent ileus. Par tial obstruction is not excluded. Clinical correlation is necessary.
[2017-07-01] MEDS ORDERED: Magnesium Citrate Solution 296 ML Bottle PO ONE (09:00)
[2017-07-01] MEDS: Heparin Sodium 5,000 Units/ML Vial SUBCUT SCH ×3 (09:06→23:57)
[2017-07-01] MEDS: Lisinopril 10 MG Tab PO SCH (09:07)
[2017-07-01] MEDS: Celecoxib 200 MG Cap PO SCH (09:07)
[2017-07-01] MEDS: Docusate Sodium 100 MG Cap PO SCH ×2 (09:07→21:04)
[2017-07-01] MEDS: Gabapentin 250 MG/5 ML Solution ML 470 ML Bottle PO SCH ×3 (09:07→21:03)
[2017-07-01] MEDS: Bisacodyl 5 MG Tab PO SCH ×2 (09:07→21:04)
--- NOTE | 2017-07-01 10:38 | CR ---
Abdomen 2V AP Flat Upright CLINICAL HISTORY: Follow-up ileus FINDINGS: There is persistent small bowel and right colon distention. It has diminished slightly sinc e the prior study. No free air is identified. IMPRESSION: Persistent moderate small bowel distention with slight improvement since prior study
--- NOTE | 2017-07-01 11:10 | CR ---
Abdomen 2V AP Flat Upright CLINICAL HISTORY: Abdominal distention, ileus FINDINGS: There is persistent small bowel and colonic distention. Pattern is similar to the prior exa m. No free air is identified. IMPRESSION: Persistent small bowel and colonic distention similar to prior study
--- NOTE | 2017-07-01 13:27 | PCM.SURGPN ---
- General Info Date of Service: 07/01/17 Date of Surgery/Procedure: 06/23/17 POD#: 8 Post-Op Diagnosis: abdominal pain with small bowel volvulus and sigmoid volvulus Admission Diagnosis/Problem: Abdominal pain Functional Status: Reports: Pain Controlled, Tolerating Diet, Ambulating, Urinating - Review of Systems General: Reports: No Symptoms HEENT: Reports: No Symptoms Pulmonary: Reports: No Symptoms Cardiovascular: Reports: No Symptoms Gastrointestinal: Reports: Abdominal Pain, Flatus Genitourinary: Reports: No Symptoms Musculoskeletal: Reports: Other (leg "tightness" and easy fatigue ) Skin: Reports: No Symptoms Neurological: Reports: No Symptoms Psychiatric: Reports: No Symptoms Systems Review Comment:: Patient reports that he is feeling better today. Has had 3 BMs since 0600. He has drank 1/4 of the magnesium citrate ordered for today, however states he held off due to side effects. He states that he has noticed increased swelling in his legs and tightness. His legs become tired quicker when going for walks. He states that the same thing happened yesterday after taking mag citrate so thought it was maybe related to this. Contacted [facility] who advised to hold due to side effects and patient having BMs today already. - Patient Data Vitals - Most Recent: Last Vital Signs Temp 36.1 C 07/01/17 09:14 Pulse 74 07/01/17 09:14 Resp 16 07/01/17 09:14 BP 169/77 H 07/01/17 09:14 Pulse Ox 97 07/01/17 09:14 Weight - Most Recent: 107.6 kg I&O - Last 24 Hours: Intake & Output 06/30/17 07/01/17 07/01/17 22:59 06:59 14:59 Intake Total 1560 1099 1080 Output Total 500 Balance 4935 [id number] [id number] Med Orders - Current: Current Medications Acetaminophen (Tylenol) 650 mg PO Q6H [facility] Last Admin: 07/01/17 09:06 Dose: 650 mg Bisacodyl (Dulcolax) 10 mg PO BID [facility] Last Admin: 07/01/17 09:07 Dose: 10 mg Bisacodyl (Dulcolax) 10 mg RECTAL BID PRN PRN Reason: Constipation Last Admin: 06/30/17 23:41 Dose: 10 mg Celecoxib (Celebrex) 200 mg PO DAILY@0800 [facility] Last Admin: 07/01/17 09:07 Dose: 200 mg Docusate Sodium (Colace) 100 mg PO BID [facility] Last Admin: 07/01/17 09:07 Dose: 100 mg Gabapentin (Neurontin) 300 mg PO TID [facility] Last Admin: 07/01/17 09:07 Dose: 300 mg Heparin Sodium (Porcine) (Heparin Sodium) 5,000 units SUBCUT Q8H [facility] Last Admin: 07/01/17 09:06 Dose: 5,000 units Hydroxyzine HCl (Vistaril) 75 - 100 mg IM Q4H PRN PRN Reason: pain Dextrose/Lactated Ringer's (Dextrose 5%-Lactated Ringers) 1,000 mls @ 100 mls/ hr IV ASDIRECTED [facility] Last Admin: 07/01/17 11:30 Dose: 100 mls/hr Lisinopril (Prinivil) 10 mg PO DAILY [facility] Last Admin: 07/01/17 09:07 Dose: 10 mg Metoclopramide HCl (Reglan) 10 mg IVPUSH Q6H [facility] Last Admin: 07/01/17 09:08 Dose: 10 mg Ondansetron HCl (Zofran Odt) 4 mg PO Q4H PRN PRN Reason: Nausea/Vomiting Last Admin: 06/29/17 02:17 Dose: 4 mg Pantoprazole Sodium (Protonix) 40 mg PO Q24H [facility] Last Admin: 06/30/17 14:49 Dose: Not Given Sodium Chloride (Saline Flush) 10 ml FLUSH ASDIRECTED PRN PRN Reason: Keep Vein Open Tamsulosin HCl (Flomax) 0.4 mg PO BEDTIME [facility] Last Admin: 06/30/17 20:55 Dose: 0.4 mg Discontinued Medications Bisacodyl (Dulcolax) 20 mg PO BID [facility] Last Admin: 06/25/17 21:03 Dose: 20 mg Bisacodyl (Dulcolax) 10 mg RECTAL BID [facility] Last Admin: 06/27/17 08:08 Dose: 10 mg Bisacodyl (Dulcolax) 10 mg RECTAL Q8H [facility] Last Admin: 06/28/17 03:05 Dose: 10 mg Ropivacaine 54 ml/Dexamethasone 8 mg/Epinephrine HCl 0.4 mg/ Sodium Chloride 23.6 ml 0 ml NERVRT ONETIME ONE Stop: 04/22/18 08:01 Last Admin: 06/23/17 08:29 Dose: 80 syringe Cyanocobalamin (Vitamin B12) 1,000 mcg IM ONETIME ONE Stop: 06/25/17 09:01 Last Admin: 06/25/17 09:23 Dose: 1,000 mcg Dexamethasone (Dexamethasone) Confirm Administered Dose 4 mg .ROUTE .STK-MED ONE Stop: 06/23/17 06:41 Diphenhydramine HCl (Benadryl) 25 - 50 mg IVPUSH Q4H PRN PRN Reason: ITCHING Erythromycin (Xiang-Tab) 250 mg PO Q8H [facility] Last Admin: 06/29/17 00:23 Dose: 250 mg Fentanyl (Sublimaze) Confirm Administered Dose 250 mcg .ROUTE .STK-MED ONE Stop: 06/23/17 06:41 Fentanyl (Sublimaze) Confirm Administered Dose 100 mcg .ROUTE .STK-MED ONE Stop: 06/23/17 09:24 Glycopyrrolate (Robinul) Confirm Administered Dose 1 mg .ROUTE .STK-MED ONE Stop: 06/23/17 06:41 Hydromorphone HCl (Dilaudid Machine Filler Servicer 15 Mg In Ns 30 Ml) 15 mg IV ASDIRECTED [facility]; Protocol Last Admin: 06/23/17 04:28 Dose: 15 mg Hydromorphone HCl (Dilaudid Machine Filler Servicer 15 Mg In Ns 30 Ml) 0 mg IV ASDIRECTED PRN; Protocol PRN Reason: Pain Lactated Ringer's (Ringers, Lactated) 1,000 mls @ 1,000 mls/hr IV BOLUS ONE Stop: 06/23/17 02:16 Last Admin: 06/23/17 01:45 Dose: 1,000 mls/hr Sodium Chloride (Normal Saline) 85 mls @ 4 mls/sec IV ASDIRECTED [facility] Stop: 06/23/17 02:16 Last Admin: 06/23/17 02:28 Dose: 4 mls/sec Lactated Ringer's (Ringers, Lactated) 1,000 mls @ 200 mls/hr IV ASDIRECTED [facility] Last Admin: 06/23/17 03:30 Dose: 200 mls/hr Lidocaine HCl/Dextrose (Lidocaine 2 Gm/D5w 500 Ml) 2 gm in 500 mls @ 30 mls/hr IV .[id number] [facility] Stop: 06/24/17 00:39 Last Admin: 06/23/17 11:39 Dose: 2 mg/min, 30 mls/hr Ketamine HCl 100 mg/ Sodium (Chloride) 100 mls @ 24 mls[facility] Stop: 06/23/17 10:00 Cefoxitin Sodium 2 gm/ Sodium (Chloride) 50 mls @ 100 mls/hr IV ONETIME ONE Stop: 06/23/17 08:29 Last Admin: 06/23/17 08:00 Dose: 100 mls/hr Dextrose/Lactated Ringer's (Dextrose 5%-Lactated Ringers) 1,000 mls @ 150 mls/ hr [facility] Last Admin: 06/23/17 11:38 Dose: 150 mls/hr Dextrose/Lactated Ringer's (Dextrose 5%-Lactated Ringers) 1,000 mls @ 175 mls/ hr [facility] Last Admin: 06/24/17 06:19 Dose: 175 mls/hr Multivitamins/Minerals 10 ml/Thiamine HCl 100 mg/ Chromium/Copper/Manganese/ Seleni/Zn 1 ml/ Dextrose/Lactated Ringer's 1,012 mls @ 175 mls/hr IV DAILY@ 1600 [facility] Last Admin: 06/23/17 17:36 Dose: 175 mls/hr Cefoxitin Sodium 2 gm/ Sodium (Chloride) 50 mls @ 100 mls/hr IV Q6H [facility] Stop: 06/24/17 08:29 Last Admin: 06/24/17 08:14 Dose: 100 mls/hr Dextrose/Lactated Ringer's (Dextrose 5%-Lactated Ringers) 1,000 mls @ 100 mls/ hr [facility] Last Admin: 06/25/17 01:24 Dose: 100 mls/hr Multivitamins/Minerals 10 ml/Thiamine HCl 100 mg/ Chromium/Copper/Manganese/ Seleni/Zn 1 ml/ Dextrose/Lactated Ringer's 1,012 mls @ 100 mls/hr IV DAILY@ 1600 [facility] Last Admin: 06/24/17 15:19 Dose: 100 mls/hr Dextrose/Lactated Ringer's (Dextrose 5%-Lactated Ringers) 1,000 mls @ 100 mls/ hr [facility] Last Admin: 06/28/17 05:23 Dose: 100 mls/hr Iohexol (Omnipaque-300) 50 ml PO .ASDIRECTED [facility] Stop: 06/24/17 03:27 Last Admin: 06/24/17 03:35 Dose: 50 ml Iopamidol (Isovue-300 (61%)) 150 ml IV . DIRECTED [facility] Stop: 06/23/17 02:16 Last Admin: 06/23/17 02:27 Dose: 150 ml Ketamine HCl (Ketalar) 40 mg IV ONETIME ONE Stop: 06/23/17 08:01 Last Admin: 06/23/17 11:39 Dose: Not Given Labetalol HCl (Normodyne) 5 - 15 mg IVPUSH Q1H PRN PRN Reason: SBP over 160 OR DBP over 95 Lidocaine HCl (Xylocaine 2%) 136 mg IVPUSH ONETIME ONE Stop: 06/23/17 08:01 Last Admin: 06/23/17 11:39 Dose: Not Given Magnesium Citrate (Citrate Of Magnesia) 296 ml PO ONETIME ONE Stop: 06/30/17 11:01 Last Admin: 06/30/17 10:54 Dose: 296 ml Magnesium Citrate (Citrate Of Magnesia) 296 ml PO ONETIME ONE Stop: 07/01/17 09:01 Last Admin: 07/01/17 09:30 Dose: 296 ml Meropenem (Merrem) Confirm Administered Dose 500 mg .ROUTE .STK-MED ONE Stop: 06/23/17 06:46 Last Admin: 06/23/17 09:14 Dose: 500 mg Metoclopramide HCl (Reglan) 10 mg IVPUSH ONETIME ONE Stop: 06/23/17 01:18 Last Admin: 06/23/17 01:45 Dose: 10 mg Metoclopramide HCl (Reglan) 10 mg IVPUSH Q6H PRN PRN Reason: NAUSEA NOT CONTROL BY ZOFRAN Miscellaneous Information (Remove Patch) 1 ea TRDERM ONETIME ONE Stop: 06/25/17 10:01 Last Admin: 06/25/17 09:24 Dose: 1 ea Naloxone HCl (Narcan) 0.1 mg IV ASDIRECTED PRN PRN Reason: decreased respiratory rate Neostigmine Methylsulfate (Neostigmine) Confirm Administered Dose 5 mg .ROUTE .STK-MED ONE Stop: 06/23/17 06:41 Scopolamine Patch (Check) 1 each TOP DAILY [facility] Stop: 06/25/17 12:01 Last Admin: 06/25/17 09:24 Dose: Not Given Ondansetron HCl (Zofran) Confirm Administered Dose 4 mg .ROUTE .STK-MED ONE Stop: 06/23/17 06:41 Ondansetron HCl (Zofran) 4 mg IVPUSH Q4H PRN PRN Reason: Nausea/Vomiting Last Admin: 06/27/17 21:38 Dose: 4 mg Pantoprazole Sodium (Protonix Iv) 40 mg IVPUSH Q24H [facility] Last Admin: 06/23/17 14:20 Dose: 40 mg Propofol (Diprivan 20 Ml) Confirm Administered Dose 200 mg .ROUTE .STK-MED ONE Stop: 06/23/17 06:41 Rocuronium [place] (Zemuron) Confirm Administered Dose 50 mg .ROUTE .STK-MED ONE Stop: 06/23/17 06:41 Rocuronium [place] (Zemuron) Confirm Administered Dose 50 mg .ROUTE .STK-MED ONE Stop: 06/23/17 09:12 Scopolamine (Transderm-Scop) 1.5 mg TOP Q72H [facility] Stop: 06/25/17 10:00 Last Admin: 06/23/17 14:19 Dose: 1.5 mg Succinylcholine Chloride (Quelicin) Confirm Administered Dose 200 mg .ROUTE .STK -MED ONE Stop: 06/23/17 06:41 - Exam Wound/Incisions: Other (binder) General: Alert, Oriented, Cooperative, No Acute Distress HEENT: Pupils Equal, Pupils Reactive Neck: Supple, Trachea Midline Lungs: Clear to Auscultation, Normal Respiratory Effort Cardiovascular: Regular Rate, Regular Rhythm GI/Abdominal Exam: Normal Bowel Sounds, Distended, Tender (LLQ with palpation) Extremities: Non-Tender, Pedal Edema (2+ bilateral LE) Skin: Warm, Dry, Intact Neurological: No New Focal Deficit Psy/Mental Status: Alert, Normal Affect, Normal Mood - Problem List & Annotations (1) SBO (small bowel obstruction) SNOMED Code(s): 554465535 Code(s): K56.609 - UNSP INTESTNL OBST, UNSP TO PARTIAL VERSUS COMPLETE OBST Status: Acute Current Visit: Yes (2) Abdominal pain SNOMED Code(s): 09354921 Code(s): R10.9 - UNSPECIFIED ABDOMINAL PAIN Status: Acute Current Visit: No Qualifiers: Abdominal location: generalized Qualified Code(s): R10.84 - Generalized abdominal pain - Problem List Review Problem List Initiated/Reviewed/Updated: Yes - My Orders Last 24 Hours: Active Orders 24 hr Category Date Time Status Full Liquid Diet [DIET] Diet 07/01/17 Breakfast Ordered Abdomen 2V AP Flat Upright [CR] DAILY Exams 07/02/17 04:00 Ordered Abdomen 2V AP Flat Upright [CR] DAILY Exams 07/03/17 04:00 Ordered Abdomen 2V AP Flat Upright [CR] DAILY Exams 07/04/17 04:00 Ordered Abdomen 2V AP Flat Upright [CR] DAILY Exams 07/05/17 04:00 Ordered Abdomen 2V AP Flat Upright [CR] DAILY Exams 07/06/17 04:00 Ordered Medication Orders Acetaminophen (Tylenol) 650 mg PO Q6H [facility] Last Admin: 07/01/17 09:06 Dose: 650 mg Admin: 07/01/17 01:00 Dose: 650 mg Admin: 06/30/17 19:39 Dose: 650 mg Admin: 06/30/17 14:49 Dose: Not Given Admin: 06/30/17 07:58 Dose: 650 mg Admin: 06/30/17 02:01 Dose: 650 mg Admin: 06/29/17 19:29 Dose: 650 mg Admin: 06/29/17 15:16 Dose: 650 mg Admin: 06/29/17 08:01 Dose: 650 mg Admin: 06/29/17 02:14 Dose: 650 mg Admin: 06/28/17 20:29 Dose: 650 mg Admin: 06/28/17 15:29 Dose: 650 mg Admin: 06/28/17 08:08 Dose: 650 mg Admin: 06/28/17 01:10 Dose: 650 mg Admin: 06/27/17 19:23 Dose: 650 mg Admin: 06/27/17 13:37 Dose: 650 mg Admin: 06/27/17 08:07 Dose: 650 mg Admin: 06/27/17 02:35 Dose: 650 mg Admin: 06/26/17 20:43 Dose: 650 mg Admin: 06/26/17 14:00 Dose: 650 mg Admin: 06/26/17 08:33 Dose: 650 mg Admin: 06/26/17 02:58 Dose: 650 mg Admin: 06/25/17 21:03 Dose: 650 mg Admin: 06/25/17 14:07 Dose: 650 mg Admin: 06/25/17 09:24 Dose: 650 mg Admin: 06/25/17 01:24 Dose: 650 mg Admin: 06/24/17 21:47 Dose: 650 mg Admin: 06/24/17 14:11 Dose: 650 mg Admin: 06/24/17 08:16 Dose: 650 mg Admin: 06/24/17 02:04 Dose: 650 mg Admin: 06/23/17 20:00 Dose: 650 mg Admin: 06/23/17 14:20 Dose: 650 mg Bisacodyl (Dulcolax) 10 mg PO BID [facility] Last Admin: 07/01/17 09:07 Dose: 10 mg Admin: 06/30/17 20:55 Dose: 10 mg Admin: 06/30/17 08:01 Dose: 10 mg Admin: 06/29/17 20:44 Dose: 10 mg Admin: 06/29/17 08:02 Dose: 10 mg Admin: 06/28/17 21:47 Dose: 10 mg Admin: 06/28/17 08:08 Dose: 10 mg Admin: 06/27/17 20:28 Dose: 10 mg Admin: 06/27/17 10:08 Dose: 10 mg Bisacodyl (Dulcolax) 10 mg RECTAL BID PRN PRN Reason: Constipation Last Admin: 06/30/17 23:41 Dose: 10 mg Admin: 06/29/17 04:09 Dose: 10 mg Celecoxib (Celebrex) 200 mg PO DAILY@0800 [facility] Last Admin: 07/01/17 09:07 Dose: 200 mg Admin: 06/30/17 07:58 Dose: 200 mg Admin: 06/29/17 08:03 Dose: 200 mg Admin: 06/28/17 08:07 Dose: 200 mg Admin: 06/27/17 08:04 Dose: 200 mg Admin: 06/26/17 08:33 Dose: 200 mg Admin: 06/25/17 09:22 Dose: 200 mg Admin: 06/24/17 08:16 Dose: 200 mg Docusate Sodium (Colace) 100 mg PO BID [facility] Last Admin: 07/01/17 09:07 Dose: 100 mg Admin: 06/30/17 20:55 Dose: 100 mg Admin: 06/30/17 08:01 Dose: 100 mg Admin: 06/29/17 20:45 Dose: 100 mg Admin: 06/29/17 08:02 Dose: 100 mg Admin: 06/28/17 20:31 Dose: 100 mg Admin: 06/28/17 08:08 Dose: 100 mg Admin: 06/27/17 20:27 Dose: 100 mg Admin: 06/27/17 08:08 Dose: 100 mg Admin: 06/26/17 20:43 Dose: 100 mg Admin: 06/26/17 08:33 Dose: 100 mg Admin: 06/25/17 21:03 Dose: 100 mg Admin: 06/25/17 09:23 Dose: 100 mg Admin: 06/24/17 21:50 Dose: 100 mg Admin: 06/24/17 09:27 Dose: 100 mg Gabapentin (Neurontin) 300 mg PO TID [facility] Last Admin: 07/01/17 09:07 Dose: 300 mg Admin: 06/30/17 20:59 Dose: 300 mg Admin: 06/30/17 14:49 Dose: Not Given Admin: 06/30/17 08:04 Dose: 300 mg Admin: 06/29/17 20:47 Dose: 300 mg Admin: 06/29/17 15:16 Dose: 300 mg Admin: 06/29/17 08:05 Dose: 300 mg Admin: 06/28/17 20:33 Dose: 300 mg Admin: 06/28/17 15:28 Dose: 300 mg Admin: 06/28/17 08:11 Dose: 300 mg Admin: 06/27/17 20:32 Dose: 300 mg Admin: 06/27/17 13:39 Dose: 300 mg Admin: 06/27/17 10:09 Dose: 300 mg Admin: 06/26/17 20:43 Dose: 300 mg Admin: 06/26/17 14:00 Dose: 300 mg Admin: 06/26/17 08:43 Dose: 300 mg Admin: 06/25/17 21:06 Dose: 300 mg Admin: 06/25/17 14:07 Dose: 300 mg Admin: 06/25/17 09:28 Dose: 300 mg Admin: 06/24/17 21:50 Dose: 300 mg Admin: 06/24/17 14:11 Dose: 300 mg Admin: 06/24/17 09:27 Dose: 300 mg Admin: 06/23/17 21:06 Dose: 300 mg Admin: 06/23/17 14:20 Dose: 300 mg Heparin Sodium (Porcine) (Heparin Sodium) 5,000 units SUBCUT Q8H [facility] Last Admin: 07/01/17 09:06 Dose: 5,000 units Admin: 06/30/17 23:33 Dose: 5,000 units Admin: 06/30/17 15:46 Dose: 5,000 units Admin: 06/30/17 07:58 Dose: 5,000 units Admin: 06/30/17 02:01 Dose: 5,000 units Admin: 06/29/17 15:19 Dose: 5,000 units Admin: 06/29/17 08:03 Dose: 5,000 units Admin: 06/29/17 00:23 Dose: 5,000 units Admin: 06/28/17 17:04 Dose: 5,000 units Admin: 06/28/17 08:08 Dose: 5,000 units Admin: 06/28/17 00:45 Dose: 5,000 units Admin: 06/27/17 15:48 Dose: 5,000 units Admin: 06/27/17 08:07 Dose: 5,000 units Admin: 06/26/17 23:00 Dose: 5,000 units Admin: 06/26/17 17:26 Dose: 5,000 units Admin: 06/26/17 08:33 Dose: 5,000 units Admin: 06/26/17 00:32 Dose: 5,000 units Admin: 06/25/17 15:49 Dose: 5,000 units Admin: 06/25/17 09:24 Dose: 5,000 units Admin: 06/25/17 00:07 Dose: 5,000 units Admin: 06/24/17 16:59 Dose: 5,000 units Admin: 06/24/17 08:16 Dose: 5,000 units Admin: 06/23/17 23:57 Dose: 5,000 units Admin: 06/23/17 16:14 Dose: 5,000 units Hydroxyzine HCl (Vistaril) 75 - 100 mg IM Q4H PRN PRN Reason: pain Dextrose/Lactated Ringer's (Dextrose 5%-Lactated Ringers) 1,000 mls @ 100 mls/ hr IV ASDIRECTED [facility] Last Admin: 07/01/17 11:30 Dose: 100 mls/hr Infusion: 07/01/17 11:01 Dose: 100 mls/hr Admin: 07/01/17 01:01 Dose: 100 mls/hr Infusion: 07/01/17 01:01 Dose: 100 mls/hr Admin: 06/30/17 15:40 Dose: 100 mls/hr Infusion: 06/30/17 15:28 Dose: 100 mls/hr Admin: 06/30/17 05:28 Dose: 100 mls/hr Infusion: 06/30/17 05:28 Dose: 100 mls/hr Admin: 06/29/17 19:28 Dose: 100 mls/hr Infusion: 06/29/17 19:28 Dose: 100 mls/hr Admin: 06/29/17 09:28 Dose: 100 mls/hr Lisinopril (Prinivil) 10 mg PO DAILY [facility] Last Admin: 07/01/17 09:07 Dose: 10 mg Admin: 06/30/17 08:01 Dose: 10 mg Admin: 06/29/17 08:02 Dose: 10 mg Admin: 06/28/17 08:09 Dose: 10 mg Admin: 06/27/17 10:10 Dose: 10 mg Admin: 06/26/17 08:33 Dose: 10 mg Admin: 06/25/17 09:23 Dose: 10 mg Admin: 06/24/17 09:27 Dose: 10 mg Metoclopramide HCl (Reglan) 10 mg IVPUSH Q6H [facility] Last Admin: 07/01/17 09:08 Dose: 10 mg Admin: 07/01/17 04:31 Dose: 10 mg Admin: 06/30/17 21:00 Dose: 10 mg Admin: 06/30/17 15:46 Dose: 10 mg Admin: 06/30/17 11:19 Dose: 10 mg Admin: 06/30/17 04:05 Dose: 10 mg Admin: 06/29/17 22:11 Dose: 10 mg Admin: 06/29/17 15:20 Dose: 10 mg Admin: 06/29/17 11:43 Dose: 10 mg Ondansetron HCl (Zofran Odt) 4 mg PO Q4H PRN PRN Reason: Nausea/Vomiting Last Admin: 06/29/17 02:17 Dose: 4 mg Pantoprazole Sodium (Protonix) 40 mg PO Q24H [facility] Last Admin: 06/30/17 14:49 Dose: Not Given Admin: 06/29/17 15:16 Dose: 40 mg Admin: 06/28/17 15:28 Dose: 40 mg Admin: 06/27/17 13:37 Dose: 40 mg Admin: 06/26/17 14:00 Dose: 40 mg Admin: 06/25/17 14:08 Dose: 40 mg Admin: 06/24/17 14:11 Dose: 40 mg Sodium Chloride (Saline Flush) 10 ml FLUSH ASDIRECTED PRN PRN Reason: Keep Vein Open Tamsulosin HCl (Flomax) 0.4 mg PO BEDTIME [facility] Last Admin: 06/30/17 20:55 Dose: 0.4 mg Admin: 06/29/17 20:45 Dose: 0.4 mg Admin: 06/28/17 20:31 Dose: 0.4 mg Admin: 06/27/17 20:28 Dose: 0.4 mg Admin: 06/26/17 20:43 Dose: 0.4 mg Admin: 06/25/17 21:03 Dose: 0.4 mg Admin: 06/24/17 21:51 Dose: 0.4 mg Admin: 06/23/17 21:06 Dose: 0.4 mg - Assessment Assessment (Free Text/Narrative):: S/p exploratory laparotomy with revision of jejunojejunostomy, sigmoid colon resection, umbilical hernia repair, small bowel resection Persistent small bowel and colonic distention per abdominal xrays - Plan Plan (Free Text/Narrative):: -Advance to full liquid diet today. -Magnesium Citrate 296 mL PO ordered today. Advised patient to hold due to side effects. -Abdominal Flat and Upright X-rays tomorrow am. -Encouraged ambulation and IS use.
[2017-07-01] MEDS: Pantoprazole 40 MG Tab.CR PO SCH (14:23)
[2017-07-01] MEDS: Tamsulosin 0.4 MG Cap.ER PO SCH (21:05)
[2017-07-02] MEDS: Acetaminophen Soln 650 MG/20.3 ML UD Cup PO SCH ×4 (02:53→21:32)
[2017-07-02] MEDS: Metoclopramide 10 MG/2 ML SDV IVPUSH SCH (03:27)
--- NOTE | 2017-07-02 06:43 | PCM.SURGPN ---
- General Info Date of Service: 07/02/17 Date of Surgery/Procedure: 06/23/17 POD#: 9 Post-Op Diagnosis: abdominal pain with small bowel volvulus and sigmoid volvulus Admission Diagnosis/Problem: Abdominal pain Functional Status: Reports: Pain Controlled, Tolerating Diet, Ambulating, Urinating, Incentive Spirometry - Review of Systems General: Reports: No Symptoms HEENT: Reports: No Symptoms Pulmonary: Reports: No Symptoms Cardiovascular: Reports: No Symptoms Gastrointestinal: Reports: Abdominal Pain (LLQ with palpation), Flatus Genitourinary: Reports: No Symptoms Musculoskeletal: Reports: Leg Pain (leg "tightness" L>R) Skin: Reports: No Symptoms Neurological: Reports: No Symptoms Psychiatric: Reports: No Symptoms Systems Review Comment:: Patient reports that he is feeling well today. He states that he had a good BM in the middle of the night and feels less bloated today. He denies any nausea. He states that his legs feel less tight and less tired today compared to yesterday. He denies having any additional concerns. - Patient Data Vitals - Most Recent: Last Vital Signs Temp 36.6 C 07/02/17 03:00 Pulse 73 07/02/17 03:00 Resp 16 07/02/17 03:00 BP 139/65 07/02/17 03:00 Pulse Ox 100 07/02/17 03:00 Weight - Most Recent: 107.6 kg I&O - Last 24 Hours: Intake & Output 07/01/17 07/01/17 07/02/17 14:59 22:59 06:59 Intake Total 1080 1800 1453 Output Total 450 775 600 Balance 630 1025 853 Med Orders - Current: Current Medications Acetaminophen (Tylenol) 650 mg PO Q6H [facility] Last Admin: 07/02/17 02:53 Dose: 650 mg Bisacodyl (Dulcolax) 10 mg PO BID [facility] Last Admin: 07/01/17 21:04 Dose: Not Given Bisacodyl (Dulcolax) 10 mg RECTAL BID PRN PRN Reason: Constipation Last Admin: 06/30/17 23:41 Dose: 10 mg Celecoxib (Celebrex) 200 mg PO DAILY@0800 [facility] Last Admin: 07/01/17 09:07 Dose: 200 mg Docusate Sodium (Colace) 100 mg PO BID [facility] Last Admin: 07/01/17 21:04 Dose: 100 mg Gabapentin (Neurontin) 300 mg PO TID [facility] Last Admin: 07/01/17 21:03 Dose: 300 mg Heparin Sodium (Porcine) (Heparin Sodium) 5,000 units SUBCUT Q8H [facility] Last Admin: 07/01/17 23:57 Dose: 5,000 units Hydroxyzine HCl (Vistaril) 75 - 100 mg IM Q4H PRN PRN Reason: pain Dextrose/Lactated Ringer's (Dextrose 5%-Lactated Ringers) 1,000 mls @ 100 mls/ hr IV ASDIRECTED [facility] Last Admin: 07/01/17 21:15 Dose: 100 mls/hr Lisinopril (Prinivil) 10 mg PO DAILY [facility] Last Admin: 07/01/17 09:07 Dose: 10 mg Metoclopramide HCl (Reglan) 10 mg IVPUSH Q6H [facility] Last Admin: 07/02/17 03:27 Dose: 10 mg Ondansetron HCl (Zofran Odt) 4 mg PO Q4H PRN PRN Reason: Nausea/Vomiting Last Admin: 06/29/17 02:17 Dose: 4 mg Pantoprazole Sodium (Protonix) 40 mg PO Q24H [facility] Last Admin: 07/01/17 14:23 Dose: 40 mg Sodium Chloride (Saline Flush) 10 ml FLUSH ASDIRECTED PRN PRN Reason: Keep Vein Open Tamsulosin HCl (Flomax) 0.4 mg PO BEDTIME [facility] Last Admin: 07/01/17 21:05 Dose: 0.4 mg Discontinued Medications Bisacodyl (Dulcolax) 20 mg PO BID [facility] Last Admin: 06/25/17 21:03 Dose: 20 mg Bisacodyl (Dulcolax) 10 mg RECTAL BID [facility] Last Admin: 06/27/17 08:08 Dose: 10 mg Bisacodyl (Dulcolax) 10 mg RECTAL Q8H [facility] Last Admin: 06/28/17 03:05 Dose: 10 mg Ropivacaine 54 ml/Dexamethasone 8 mg/Epinephrine HCl 0.4 mg/ Sodium Chloride 23.6 ml 0 ml NERVRT ONETIME ONE Stop: 06/23/17 08:01 Last Admin: 06/23/17 08:29 Dose: 80 syringe Cyanocobalamin (Vitamin B12) 1,000 mcg IM ONETIME ONE Stop: 06/25/17 09:01 Last Admin: 06/25/17 09:23 Dose: 1,000 mcg Dexamethasone (Dexamethasone) Confirm Administered Dose 4 mg .ROUTE .STK-MED ONE Stop: 06/23/17 06:41 Diphenhydramine HCl (Benadryl) 25 - 50 mg IVPUSH Q4H PRN PRN Reason: ITCHING Erythromycin (Xiang-Tab) 250 mg PO Q8H [facility] Last Admin: 06/29/17 00:23 Dose: 250 mg Fentanyl (Sublimaze) Confirm Administered Dose 250 mcg .ROUTE .STK-MED ONE Stop: 06/23/17 06:41 Fentanyl (Sublimaze) Confirm Administered Dose 100 mcg .ROUTE .STK-MED ONE Stop: 06/23/17 09:24 Glycopyrrolate (Robinul) Confirm Administered Dose 1 mg .ROUTE .STK-MED ONE Stop: 06/23/17 06:41 Hydromorphone HCl (Dilaudid [employer] 15 Mg In Ns 30 Ml) 15 mg IV ASDIRECTED [facility]; Protocol Last Admin: 06/23/17 04:28 Dose: 15 mg Hydromorphone HCl (Dilaudid [employer] 15 Mg In Ns 30 Ml) 0 mg IV ASDIRECTED PRN; Protocol PRN Reason: Pain Lactated Ringer's (Ringers, Lactated) 1,000 mls @ 1,000 mls/hr IV BOLUS ONE Stop: 06/23/17 02:16 Last Admin: 06/23/17 01:45 Dose: 1,000 mls/hr Sodium Chloride (Normal Saline) 85 mls @ 4 mls/sec IV ASDIRECTED [facility] Stop: 06/23/17 02:16 Last Admin: 06/23/17 02:28 Dose: 4 mls/sec Lactated Ringer's (Ringers, Lactated) 1,000 mls @ 200 mls/hr IV ASDIRECTED [facility] Last Admin: 06/23/17 03:30 Dose: 200 mls/hr Lidocaine HCl/Dextrose (Lidocaine 2 Gm/D5w 500 Ml) 2 gm in 500 mls @ 30 mls/hr IV .[id number] [facility] Stop: 06/24/17 00:39 Last Admin: 06/23/17 11:39 Dose: 2 mg/min, 30 mls/hr Ketamine HCl 100 mg/ Sodium (Chloride) 100 mls @ 24 mls/hr IV ASDIRECTED [facility] Stop: 06/23/17 10:00 Cefoxitin Sodium 2 gm/ Sodium (Chloride) 50 mls @ 100 mls/hr IV ONETIME ONE Stop: 06/23/17 08:29 Last Admin: 06/23/17 08:00 Dose: 100 mls/hr Dextrose/Lactated Ringer's (Dextrose 5%-Lactated Ringers) 1,000 mls @ 150 mls/ hr IV ASDIRECTED [facility] Last Admin: 06/23/17 11:38 Dose: 150 mls/hr Dextrose/Lactated Ringer's (Dextrose 5%-Lactated Ringers) 1,000 mls @ 175 mls/ hr IV ASDIRECTRED [facility] Last Admin: 06/24/17 06:19 Dose: 175 mls/hr Multivitamins/Minerals 10 ml/Thiamine HCl 100 mg/ Chromium/Copper/Manganese/ Seleni/Zn 1 ml/ Dextrose/Lactated Ringer's 1,012 mls @ 175 mls/hr IV DAILY@ 1600 [facility] Last Admin: 06/23/17 17:36 Dose: 175 mls/hr Cefoxitin Sodium 2 gm/ Sodium (Chloride) 50 mls @ 100 mls/hr IV Q6H [facility] Stop: 06/24/17 08:29 Last Admin: 06/24/17 08:14 Dose: 100 mls/hr Dextrose/Lactated Ringer's (Dextrose 5%-Lactated Ringers) 1,000 mls @ 100 mls/ hr IV ASDIRECTRED [facility] Last Admin: 06/25/17 01:24 Dose: 100 mls/hr Multivitamins/Minerals 10 ml/Thiamine HCl 100 mg/ Chromium/Copper/Manganese/ Seleni/Zn 1 ml/ Dextrose/Lactated Ringer's 1,012 mls @ 100 mls/hr IV DAILY@ 1600 [facility] Last Admin: 06/24/17 15:19 Dose: 100 mls/hr Dextrose/Lactated Ringer's (Dextrose 5%-Lactated Ringers) 1,000 mls @ 100 mls/ hr IV ASDIRECTRED [facility] Last Admin: 06/28/17 05:23 Dose: 100 mls/hr Iohexol (Omnipaque-300) 50 ml PO .ASDIRECTED [facility] Stop: 06/24/17 03:27 Last Admin: 06/24/17 03:35 Dose: 50 ml Iopamidol (Isovue-300 (61%)) 150 ml IV . DIRECTED [facility] Stop: 06/23/17 02:16 Last Admin: 06/23/17 02:27 Dose: 150 ml Ketamine HCl (Ketalar) 40 mg IV ONETIME ONE Stop: 06/23/17 08:01 Last Admin: 06/23/17 11:39 Dose: Not Given Labetalol HCl (Normodyne) 5 - 15 mg IVPUSH Q1H PRN PRN Reason: SBP over 160 OR DBP over 95 Lidocaine HCl (Xylocaine 2%) 136 mg IVPUSH ONETIME ONE Stop: 06/23/17 08:01 Last Admin: 06/23/17 11:39 Dose: Not Given Magnesium Citrate (Citrate Of Magnesia) 296 ml PO ONETIME ONE Stop: 06/30/17 11:01 Last Admin: 06/30/17 10:54 Dose: 296 ml Magnesium Citrate (Citrate Of Magnesia) 296 ml PO ONETIME ONE Stop: 07/01/17 09:01 Last Admin: 07/01/17 09:30 Dose: 296 ml Meropenem (Merrem) Confirm Administered Dose 500 mg .ROUTE .STK-MED ONE Stop: 06/23/17 06:46 Last Admin: 06/23/17 09:14 Dose: 500 mg Metoclopramide HCl (Reglan) 10 mg IVPUSH ONETIME ONE Stop: 06/23/17 01:18 Last Admin: 06/23/17 01:45 Dose: 10 mg Metoclopramide HCl (Reglan) 10 mg IVPUSH Q6H PRN PRN Reason: NAUSEA NOT CONTROL BY ZOFRAN Miscellaneous Information (Remove Patch) 1 ea TRDERM ONETIME ONE Stop: 06/25/17 10:01 Last Admin: 06/25/17 09:24 Dose: 1 ea Naloxone HCl (Narcan) 0.1 mg IV ASDIRECTED PRN PRN Reason: decreased respiratory rate Neostigmine Methylsulfate (Neostigmine) Confirm Administered Dose 5 mg .ROUTE .STK-MED ONE Stop: 06/23/17 06:41 Scopolamine Patch (Check) 1 each TOP DAILY [facility] Stop: 06/25/17 12:01 Last Admin: 06/25/17 09:24 Dose: Not Given Ondansetron HCl (Zofran) Confirm Administered Dose 4 mg .ROUTE .STK-MED ONE Stop: 06/23/17 06:41 Ondansetron HCl (Zofran) 4 mg IVPUSH Q4H PRN PRN Reason: Nausea/Vomiting Last Admin: 06/27/17 21:38 Dose: 4 mg Pantoprazole Sodium (Protonix Iv) 40 mg IVPUSH Q24H [facility] Last Admin: 06/23/17 14:20 Dose: 40 mg Propofol (Diprivan 20 Ml) Confirm Administered Dose 200 mg .ROUTE .STK-MED ONE Stop: 06/23/17 06:41 Rocuronium [place] (Zemuron) Confirm Administered Dose 50 mg .ROUTE .STK-MED ONE Stop: 06/23/17 06:41 Rocuronium [place] (Zemuron) Confirm Administered Dose 50 mg .ROUTE .STK-MED ONE Stop: 06/23/17 09:12 Scopolamine (Transderm-Scop) 1.5 mg TOP Q72H [facility] Stop: 06/25/17 10:00 Last Admin: 06/23/17 14:19 Dose: 1.5 mg Succinylcholine Chloride (Quelicin) Confirm Administered Dose 200 mg .ROUTE .STK -MED ONE Stop: 06/23/17 06:41 - Exam Wound/Incisions: Healing Well, No Drainage General: Alert, Oriented, Cooperative, No Acute Distress HEENT: Pupils Equal, Pupils Reactive Neck: Supple, Trachea Midline Lungs: Clear to Auscultation, Normal Respiratory Effort Cardiovascular: Regular Rate, Regular Rhythm GI/Abdominal Exam: Normal Bowel Sounds, Soft, Distended (mildly. much improved) , Tender (to LLQ with palpation) Extremities: Non-Tender, Pedal Edema (1+ edema to bilateral LE) Skin: Warm, Dry, Intact Neurological: No New Focal Deficit Psy/Mental Status: Alert, Normal Affect, Normal Mood - Problem List & Annotations (1) SBO (small bowel obstruction) SNOMED Code(s): 746725755 Code(s): K56.609 - UNSP INTESTNL OBST, UNSP TO PARTIAL VERSUS COMPLETE OBST Status: Acute Current Visit: Yes (2) Abdominal pain SNOMED Code(s): 69497501 Code(s): R10.9 - UNSPECIFIED ABDOMINAL PAIN Status: Acute Current Visit: No Qualifiers: Abdominal location: generalized Qualified Code(s): R10.84 - Generalized abdominal pain - Problem List Review Problem List Initiated/Reviewed/Updated: Yes - My Orders Last 24 Hours: Active Orders 24 hr Category Date Time Status Full Liquid Diet [DIET] Diet 07/01/17 Breakfast Ordered Abdomen 2V AP Flat Upright [CR] DAILY Exams 07/02/17 04:00 Taken Abdomen 2V AP Flat Upright [CR] DAILY Exams 07/03/17 04:00 Ordered Abdomen 2V AP Flat Upright [CR] DAILY Exams 07/04/17 04:00 Ordered Abdomen 2V AP Flat Upright [CR] DAILY Exams 07/05/17 04:00 Ordered Abdomen 2V AP Flat Upright [CR] DAILY Exams 07/06/17 04:00 Ordered Medication Orders Acetaminophen (Tylenol) 650 mg PO Q6H [facility] Last Admin: 07/02/17 02:53 Dose: 650 mg Admin: 07/01/17 19:34 Dose: 650 mg Admin: 07/01/17 14:23 Dose: 650 mg Admin: 07/01/17 09:06 Dose: 650 mg Admin: 07/01/17 01:00 Dose: 650 mg Admin: 06/30/17 19:39 Dose: 650 mg Admin: 06/30/17 14:49 Dose: Not Given Admin: 06/30/17 07:58 Dose: 650 mg Admin: 06/30/17 02:01 Dose: 650 mg Admin: 06/29/17 19:29 Dose: 650 mg Admin: 06/29/17 15:16 Dose: 650 mg Admin: 06/29/17 08:01 Dose: 650 mg Admin: 06/29/17 02:14 Dose: 650 mg Admin: 06/28/17 20:29 Dose: 650 mg Admin: 06/28/17 15:29 Dose: 650 mg Admin: 06/28/17 08:08 Dose: 650 mg Admin: 06/28/17 01:10 Dose: 650 mg Admin: 06/27/17 19:23 Dose: 650 mg Admin: 06/27/17 13:37 Dose: 650 mg Admin: 06/27/17 08:07 Dose: 650 mg Admin: 06/27/17 02:35 Dose: 650 mg Admin: 06/26/17 20:43 Dose: 650 mg Admin: 06/26/17 14:00 Dose: 650 mg Admin: 06/26/17 08:33 Dose: 650 mg Admin: 06/26/17 02:58 Dose: 650 mg Admin: 06/25/17 21:03 Dose: 650 mg Admin: 06/25/17 14:07 Dose: 650 mg Admin: 06/25/17 09:24 Dose: 650 mg Admin: 06/25/17 01:24 Dose: 650 mg Admin: 06/24/17 21:47 Dose: 650 mg Admin: 06/24/17 14:11 Dose: 650 mg Admin: 06/24/17 08:16 Dose: 650 mg Admin: 06/24/17 02:04 Dose: 650 mg Admin: 06/23/17 20:00 Dose: 650 mg Admin: 06/23/17 14:20 Dose: 650 mg Bisacodyl (Dulcolax) 10 mg PO BID [facility] Last Admin: 07/01/17 21:04 Dose: Admin: 07/01/17 09:07 Dose: 10 mg Admin: 06/30/17 20:55 Dose: 10 mg Admin: 06/30/17 08:01 Dose: 10 mg Admin: 06/29/17 20:44 Dose: 10 mg Admin: 06/29/17 08:02 Dose: 10 mg Admin: 06/28/17 21:47 Dose: 10 mg Admin: 06/28/17 08:08 Dose: 10 mg Admin: 06/27/17 20:28 Dose: 10 mg Admin: 06/27/17 10:08 Dose: 10 mg Bisacodyl (Dulcolax) 10 mg RECTAL BID PRN PRN Reason: Constipation Last Admin: 06/30/17 23:41 Dose: 10 mg Admin: 06/29/17 04:09 Dose: 10 mg Celecoxib (Celebrex) 200 mg PO DAILY@0800 [facility] Last Admin: 07/01/17 09:07 Dose: 200 mg Admin: 06/30/17 07:58 Dose: 200 mg Admin: 06/29/17 08:03 Dose: 200 mg Admin: 06/28/17 08:07 Dose: 200 mg Admin: 06/27/17 08:04 Dose: 200 mg Admin: 06/26/17 08:33 Dose: 200 mg Admin: 06/25/17 09:22 Dose: 200 mg Admin: 06/24/17 08:16 Dose: 200 mg Docusate Sodium (Colace) 100 mg PO BID [facility] Last Admin: 07/01/17 21:04 Dose: 100 mg Admin: 07/01/17 09:07 Dose: 100 mg Admin: 06/30/17 20:55 Dose: 100 mg Admin: 06/30/17 08:01 Dose: 100 mg Admin: 06/29/17 20:45 Dose: 100 mg Admin: 06/29/17 08:02 Dose: 100 mg Admin: 06/28/17 20:31 Dose: 100 mg Admin: 06/28/17 08:08 Dose: 100 mg Admin: 06/27/17 20:27 Dose: 100 mg Admin: 06/27/17 08:08 Dose: 100 mg Admin: 06/26/17 20:43 Dose: 100 mg Admin: 06/26/17 08:33 Dose: 100 mg Admin: 06/25/17 21:03 Dose: 100 mg Admin: 06/25/17 09:23 Dose: 100 mg Admin: 06/24/17 21:50 Dose: 100 mg Admin: 06/24/17 09:27 Dose: 100 mg Gabapentin (Neurontin) 300 mg PO TID [facility] Last Admin: 07/01/17 21:03 Dose: 300 mg Admin: 07/01/17 14:22 Dose: 300 mg Admin: 07/01/17 09:07 Dose: 300 mg Admin: 06/30/17 20:59 Dose: 300 mg Admin: 06/30/17 14:49 Dose: Not Given Admin: 06/30/17 08:04 Dose: 300 mg Admin: 06/29/17 20:47 Dose: 300 mg Admin: 06/29/17 15:16 Dose: 300 mg Admin: 06/29/17 08:05 Dose: 300 mg Admin: 06/28/17 20:33 Dose: 300 mg Admin: 06/28/17 15:28 Dose: 300 mg Admin: 06/28/17 08:11 Dose: 300 mg Admin: 06/27/17 20:32 Dose: 300 mg Admin: 06/27/17 13:39 Dose: 300 mg Admin: 06/27/17 10:09 Dose: 300 mg Admin: 06/26/17 20:43 Dose: 300 mg Admin: 06/26/17 14:00 Dose: 300 mg Admin: 06/26/17 08:43 Dose: 300 mg Admin: 06/25/17 21:06 Dose: 300 mg Admin: 06/25/17 14:07 Dose: 300 mg Admin: 06/25/17 09:28 Dose: 300 mg Admin: 06/24/17 21:50 Dose: 300 mg Admin: 06/24/17 14:11 Dose: 300 mg Admin: 06/24/17 09:27 Dose: 300 mg Admin: 06/23/17 21:06 Dose: 300 mg Admin: 06/23/17 14:20 Dose: 300 mg Heparin Sodium (Porcine) (Heparin Sodium) 5,000 units SUBCUT Q8H [facility] Last Admin: 07/01/17 23:57 Dose: 5,000 units Admin: 07/01/17 15:46 Dose: 5,000 units Admin: 07/01/17 09:06 Dose: 5,000 units Admin: 06/30/17 23:33 Dose: 5,000 units Admin: 06/30/17 15:46 Dose: 5,000 units Admin: 06/30/17 07:58 Dose: 5,000 units Admin: 06/30/17 02:01 Dose: 5,000 units Admin: 06/29/17 15:19 Dose: 5,000 units Admin: 06/29/17 08:03 Dose: 5,000 units Admin: 06/29/17 00:23 Dose: 5,000 units Admin: 06/28/17 17:04 Dose: 5,000 units Admin: 06/28/17 08:08 Dose: 5,000 units Admin: 06/28/17 00:45 Dose: 5,000 units Admin: 06/27/17 15:48 Dose: 5,000 units Admin: 06/27/17 08:07 Dose: 5,000 units Admin: 06/26/17 23:00 Dose: 5,000 units Admin: 06/26/17 17:26 Dose: 5,000 units Admin: 06/26/17 08:33 Dose: 5,000 units Admin: 06/26/17 00:32 Dose: 5,000 units Admin: 06/25/17 15:49 Dose: 5,000 units Admin: 06/25/17 09:24 Dose: 5,000 units Admin: 06/25/17 00:07 Dose: 5,000 units Admin: 06/24/17 16:59 Dose: 5,000 units Admin: 06/24/17 08:16 Dose: 5,000 units Admin: 06/23/17 23:57 Dose: 5,000 units Admin: 06/23/17 16:14 Dose: 5,000 units Hydroxyzine HCl (Vistaril) 75 - 100 mg IM Q4H PRN PRN Reason: pain Dextrose/Lactated Ringer's (Dextrose 5%-Lactated Ringers) 1,000 mls @ 100 mls/ hr IV ASDIRECTED [facility] Last Admin: 07/01/17 21:15 Dose: 100 mls/hr Infusion: 07/01/17 21:15 Dose: 100 mls/hr Admin: 07/01/17 11:30 Dose: 100 mls/hr Infusion: 07/01/17 11:01 Dose: 100 mls/hr Admin: 07/01/17 01:01 Dose: 100 mls/hr Infusion: 07/01/17 01:01 Dose: 100 mls/hr Admin: 06/30/17 15:40 Dose: 100 mls/hr Infusion: 06/30/17 15:28 Dose: 100 mls/hr Admin: 06/30/17 05:28 Dose: 100 mls/hr Infusion: 06/30/17 05:28 Dose: 100 mls/hr Admin: 06/29/17 19:28 Dose: 100 mls/hr Infusion: 06/29/17 19:28 Dose: 100 mls/hr Admin: 06/29/17 09:28 Dose: 100 mls/hr Lisinopril (Prinivil) 10 mg PO DAILY [facility] Last Admin: 07/01/17 09:07 Dose: 10 mg Admin: 06/30/17 08:01 Dose: 10 mg Admin: 06/29/17 08:02 Dose: 10 mg Admin: 06/28/17 08:09 Dose: 10 mg Admin: 06/27/17 10:10 Dose: 10 mg Admin: 06/26/17 08:33 Dose: 10 mg Admin: 06/25/17 09:23 Dose: 10 mg Admin: 06/24/17 09:27 Dose: 10 mg Metoclopramide HCl (Reglan) 10 mg IVPUSH Q6H [facility] Last Admin: 07/02/17 03:27 Dose: 10 mg Admin: 07/01/17 21:05 Dose: 10 mg Admin: 07/01/17 15:46 Dose: 10 mg Admin: 07/01/17 09:08 Dose: 10 mg Admin: 07/01/17 04:31 Dose: 10 mg Admin: 06/30/17 21:00 Dose: 10 mg Admin: 06/30/17 15:46 Dose: 10 mg Admin: 06/30/17 11:19 Dose: 10 mg Admin: 06/30/17 04:05 Dose: 10 mg Admin: 06/29/17 22:11 Dose: 10 mg Admin: 06/29/17 15:20 Dose: 10 mg Admin: 06/29/17 11:43 Dose: 10 mg Ondansetron HCl (Zofran Odt) 4 mg PO Q4H PRN PRN Reason: Nausea/Vomiting Last Admin: 06/29/17 02:17 Dose: 4 mg Pantoprazole Sodium (Protonix) 40 mg PO Q24H [facility] Last Admin: 07/01/17 14:23 Dose: 40 mg Admin: 06/30/17 14:49 Dose: Not Given Admin: 06/29/17 15:16 Dose: 40 mg Admin: 06/28/17 15:28 Dose: 40 mg Admin: 06/27/17 13:37 Dose: 40 mg Admin: 06/26/17 14:00 Dose: 40 mg Admin: 06/25/17 14:08 Dose: 40 mg Admin: 06/24/17 14:11 Dose: 40 mg Sodium Chloride (Saline Flush) 10 ml FLUSH ASDIRECTED PRN PRN Reason: Keep Vein Open Tamsulosin HCl (Flomax) 0.4 mg PO BEDTIME [facility] Last Admin: 07/01/17 21:05 Dose: 0.4 mg Admin: 06/30/17 20:55 Dose: 0.4 mg Admin: 06/29/17 20:45 Dose: 0.4 mg Admin: 06/28/17 20:31 Dose: 0.4 mg Admin: 06/27/17 20:28 Dose: 0.4 mg Admin: 06/26/17 20:43 Dose: 0.4 mg Admin: 06/25/17 21:03 Dose: 0.4 mg Admin: 06/24/17 21:51 Dose: 0.4 mg Admin: 06/23/17 21:06 Dose: 0.4 mg - Assessment Assessment (Free Text/Narrative):: S/p exploratory laparotomy with revision of jejunojejunostomy, sigmoid colon resection, umbilical hernia repair, small bowel resection Persistent small bowel and colonic distention per abdominal xrays - Plan Plan (Free Text/Narrative):: -Advance diet to low residue today. -Magnesium Citrate 1/2 bottle daily. -Abdominal Flat and Upright X-rays tomorrow am. -IV to saline lock. -20 mg IV lasix. -Milk of Magnesia BID. -Change Reglan IV to 10 mg PO QID. -Senna Plus 2 tabs PO BID. -Encouraged ambulation and IS use.
[2017-07-02] MEDS: Celecoxib 200 MG Cap PO SCH (08:44)
[2017-07-02] MEDS: Heparin Sodium 5,000 Units/ML Vial SUBCUT SCH ×3 (08:45→23:04)
[2017-07-02] MEDS: Bisacodyl 5 MG Tab PO SCH ×2 (08:45→21:32)
[2017-07-02] MEDS: Lisinopril 10 MG Tab PO SCH (08:46)
[2017-07-02] MEDS: Docusate Sodium 100 MG Cap PO SCH ×2 (08:46→21:32)
[2017-07-02] MEDS: Gabapentin 250 MG/5 ML Solution ML 470 ML Bottle PO SCH ×3 (08:48→21:39)
[2017-07-02] MEDS ORDERED: Furosemide 20 MG/2 ML VIAL IVPUSH ONE (09:00)
--- NOTE | 2017-07-02 09:08 | CR ---
Abdomen 2V AP Flat Upright CLINICAL HISTORY: Postop ileus FINDINGS: There is persistent moderate small bowel and transverse colonic distention. Pattern is gurmeet lar to prior studies. There is some mild decrease in left colon gas IMPRESSION: Persistent moderate small bowel and transverse colonic distention
--- NOTE | 2017-07-02 09:40 | PN ---
DATE OF SERVICE: 07/02/2017 The patient has been afebrile with stable vital signs. Oral intake was quite good yesterday, up around 2 L and he has continued to move his bowels. Abdominal x-rays still show quite a bit of air, both in the small bowel and large bowel but generally improved from over the last couple of days. We will give him at this point half a bottle of magnesium citrate daily. Continue milk of magnesia and Dulcolax tablets along with the Senna Plus. He has some edema in the legs. We will give him one dose of Lasix IV and recheck abdominal x-ray in the morning. Move up to a low-residue diet. If he does okay, he will likely be able to be discharged home tomorrow. Gregg Ramsey MD /[id number]
[2017-07-02] MEDS: Metoclopramide 10 MG Tab PO SCH ×3 (10:23→21:39)
[2017-07-02] MEDS: Magnesium Citrate Solution 296 ML Bottle PO SCH (10:23)
--- NOTE | 2017-07-02 13:01 | OR ---
DATE OF PROCEDURE: 06/23/2017 PREOPERATIVE DIAGNOSIS: Small-bowel obstruction, likely related to small bowel volvulus. POSTOPERATIVE DIAGNOSES: 1. 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 2. Sigmoid colon volvulus. 3. Incarcerated incisional hernia containing partially necrotic omentum. 4. Umbilical hernia. 5. Marked distention of proximal small bowel. OPERATIVE PROCEDURES: Exploratory laparotomy with: 1. Reduction of small bowel volvulus and closure of internal hernia (03716). 2. Small bowel resection with revision of the jejunojejunostomy component of Maria Dolores-en-Y gastric bypass (43266). 3. Rectosigmoid colon resection with coloproctostomy (49723). 4. Repair of incarcerated incisional hernia (73449). 5. Repair of umbilical hernia (93712). 6. Partial omentectomy (95628). 7. Enterostomy for tube decompression of small bowel (52055). ANESTHESIA: General. INDICATIONS FOR PROCEDURE: This is a 72-year-old, status post Maria Dolores-en-Y gastric bypass several years ago, presenting with a partial small bowel obstruction. This has been present for some time, when he has been on vacation in [place], and he returns here for followup care. He has had considerable bloating and postprandial crampy abdominal pain. A CT scan was obtained, which suggests some degree of a volvulus, and plan is to proceed with an open laparotomy, given the marked distention of the small bowel and risk of placement of trocar. This would also make manipulation of the bowel quite difficult or significant spill, should a laparoscopic approach be used. Potential risks of the procedure including bleeding, infection, injury to underlying viscera, problems with further bowel obstruction over time as well as possibility of cardiopulmonary, septic, or hemorrhagic complications leading to were all discussed, and the patient wishes to proceed. DETAILS OF PROCEDURE: The patient was taken to the operating room. After general endotracheal anesthesia was induced, with ultrasound guidance, bilateral transversus abdominis plane blocks were placed. These were placed in the subcostal area, as we were anticipating this operation, from an incisional standpoint, would be primarily from the umbilicus upward. Standard solution was used under continuous ultrasound guidance on each side. A Forte catheter was inserted and the abdomen prepped and draped. A midline incision from the umbilicus upward to roughly a handsbreadth superiorly was made and carried down through the skin and subcutaneous tissue. As one entered the peritoneal cavity, the patient appeared to have an umbilical hernia present. This was reduced of some loosely present omentum and that hernia sac eventually delivered from the field. Further exploration revealed marked distention of the Maria Dolores limb of small bowel. As one untwisted the volvulus, a mesenteric defect, which included, in addition to the mesenteric defect under the jejunojejunostomy, a band of omentum, which was adherent to the small bowel just beyond that anastomosis. These combined together to create the volvulus. The band was then divided and the bowel reduced through the mesenteric defect. The patient was noted to have a fixed stricture at the level of the Maria Dolores limb entering the jejunojejunostomy. This appeared to be quite edematous and probably would drain poorly, inviting the patient to have persistent partial small bowel obstructive symptoms. Given this, this was then divided flush with the jejunojejunostomy. The bowel proximal to this was noted to be markedly distended, and to facilitate adequate subsequent anastomosis and early return of bowel function, a small enterotomy was made at the end of that divided Maria Dolores limb, and a [place] sump tube was passed into that area. A large volume of air and fluid was evacuated until the entire Maria Dolores limb was well decompressed. The tube was then removed and a clamp applied to the opening. As discussed with the patient preoperatively, if we did need to revise the jejunojejunostomy, would make that a somewhat more distal arrangement. The Maria Dolores limb was measured at this time to be 140 cm, and we then traced back the small bowel from the ileocecal valve 260 cm, giving the patient a total of 400 cm alimentary length. This should result in some improvement of his weight, but not be overly aggressive in terms of malabsorption. At that level, the [id number] enteroenterostomy was accomplished between the Maria Dolores limb and the bowel at that level with an internal firing of 60 mm stapler. The common opening was then closed transversely with the same stapler. At this point, the mesenteric defect, which would be the new enteroenterostomy defect, was then closed with a running 2-0 silk stitch. The angles were anastomosed and were then reinforced with some 3-0 Vicryl stitch. Two additional findings were noted in this case. One was a massively dilated sigmoid colon, and this appeared to be flipped over on itself with a crease in both components of the sigmoid colon as it entered the area of volvulus. The base of this twist was at the point of the proximal sigmoid colon and the area quite close to the rectosigmoid junction. This was felt to be a chronic problem, likely resulting in significant symptoms, and given this, a decision was made to resect that area. As it was detorsed, the sigmoid colon along its midportion was initially divided with the ROSE MARY stapler. We then continued downward to the upper rectum, which was beyond the point of quite a bit of edema in the distal sigmoid colon where it had been twisted, and that was divided with a ROSE MARY stapler as well. A [id number] coloproctostomy was then accomplished with an internal firing of a 60 mm albert load, followed by internal firing of 45 mm albert load in order to produce a quite wide anastomosis. The common opening was then closed transversely with the purple load. The mesenteric defect here was closed with some 3-0 Vicryl stitch, as it was quite small, and the angles of anastomosis reinforced with that stitch as well and subsequently with fibrin sealant. The other significant finding was that of an incarcerated incisional hernia. This was located in the left lateral trocar site used for the original gastric bypass. As one began to reduce this, there was a large amount of omentum, some of which was very ischemic and somewhat necrotic. This was reduced. The skin within the necrotic portion of the omentum was excised with a ROSE MARY stapler and sent as a separate specimen. The hernia sac was then reduced and that hernia then closed with a [id number] stitch of #2 Vicryl stitch. At this point, no further major problems were noted. The abdomen was irrigated with meropenem- containing saline solution. The midline fascia, at the beginning of that closure from within the umbilical hernia, was closed with a #2 Vicryl stitch and this stitch then used to continue upward along the midline incision. The subcutaneous tissue was then drained with 15-Japanese round Urbano-White drain and the skin closed with lilly. Dressing was applied. The patient was taken to the recovery room in satisfactory condition. Gregg Ramsey MD /[id number]
[2017-07-02] MEDS: Pantoprazole 40 MG Tab.CR PO SCH (15:27)
[2017-07-02] MEDS ORDERED: Furosemide 20 MG/2 ML VIAL IVPUSH STA (16:21)
[2017-07-02] MEDS: Tamsulosin 0.4 MG Cap.ER PO SCH (21:33)
[2017-07-03] MEDS: Acetaminophen Soln 650 MG/20.3 ML UD Cup PO SCH ×2 (04:21→08:26)
[2017-07-03 07:27] VITALS: BP 149/76
[2017-07-03] MEDS: Celecoxib 200 MG Cap PO SCH (08:25)
[2017-07-03] MEDS: Metoclopramide 10 MG Tab PO SCH ×2 (08:25→10:10)
[2017-07-03] MEDS: Heparin Sodium 5,000 Units/ML Vial SUBCUT SCH (08:25)
[2017-07-03] MEDS: Magnesium Citrate Solution 296 ML Bottle PO SCH (08:26)
[2017-07-03] MEDS: Docusate Sodium 100 MG Cap PO SCH (08:27)
[2017-07-03] MEDS: Lisinopril 10 MG Tab PO SCH (08:27)
[2017-07-03] MEDS: Bisacodyl 5 MG Tab PO SCH (08:27)
--- NOTE | 2017-07-03 08:28 | PCM.DCSUM1 ---
Discharge Summary - Hospital Course Free Text/Narrative:: Patient admitted with abdominal pain on 06/23/2017 Brief History: Patient was admitted with abdominal pain on 06/23/2017 and underwent exploratory laparotomy with revision of jejunojejunostomy, sigmoid colon resection, umbilical hernia repair, small bowel resection. After surgery he developed persistent small bowel and colonic distention with the need for bowel stimulation and bowel rest. When his diet was advanced he would begin to feel more bloated and uncomfortable so it had to be advanced slowly. POD 5 he was started on erythromycin 250 mg TID to help with gut motility. POD 8 he noticed more lower extremity edema and tightness after drinking his mag citrate so his dose was decreased to 1/2 bottle daily and 20 mg lasix was prescribed. His edema improved but was still present on day of discharge so he will go home with 5 days of lasix and potassium supplements as well as romina hose. On day of discharge he was tolerating his diet well, having bowel movements and feeling less distended. He reported feeling ready to go home. - Discharge Data Discharge Date: 07/03/17 Discharge Disposition: Home, Self-Care 01 Condition: Good - Discharge Diagnosis/Problem(s) (1) SBO (small bowel obstruction) SNOMED Code(s): 159094612 ICD Code: K56.609 - UNSP INTESTNL OBST, UNSP TO PARTIAL VERSUS COMPLETE OBST Status: Acute Current Visit: Yes (2) Abdominal pain SNOMED Code(s): 72264269 ICD Code: R10.9 - UNSPECIFIED ABDOMINAL PAIN Status: Acute Current Visit : No Qualifiers: Abdominal location: generalized Qualified Code(s): R10.84 - Generalized abdominal pain - Patient Summary/Data Consults: Consultations 06/23/17 12:04 Consult to Bariatric Services [CONS] Routine Comment: Consult to Full Stack Java Developer [CONS] Routine Comment: Physician Instructions: Quantity: Consult to Pharmacy [CONS] Routine Comment: Physician Instructions: Quantity: Respiratory Care Assess and Treatment [CONS] Routine Comment: Physician Instructions: Post-Op Pneumonia Prevention 06/24/17 07:53 Consult to Bariatric Services [CONS] Routine Comment: 07/03/17 09:00 Consult to Full Stack Java Developer [CONS] Routine Comment: Physician Instructions: Quantity: Reason for Consult: Low residue diet Special Instructions: Education on low residue diet - Patient Instructions Diet: Drink 8-10+ Glasses/Day, GI Soft/Low Residue/Low Fiber Activity: No Lifting Over 10 Pounds (for 6 weeks ) Driving: Do Not Drive (while on pain medication) Showering/Bathing: May Shower Wound/Incision Care: Keep Operative Site/Wound Site Clean and Dry Notify Provider of: Fever, Increased Pain, Nausea and/or Vomiting Other/Special Instructions: Use incentive inspirometer 10 times every hour while awake for 1 week. - Discharge Plan Prescriptions/Med Rec: Celecoxib [CeleBREX] 200 mg PO DAILY@0800 #14 cap Furosemide [Lasix] 20 mg PO DAILY #5 tab Ondansetron [Zofran ODT] 4 mg PO Q4H PRN #30 tab.dis PRN Reason: Nausea/Vomiting Potassium Chloride 20 meq PO DAILY #5 tablet.er Tamsulosin [Flomax] 0.4 mg PO BEDTIME #30 cap.er Home Medications: Home Meds Calc/D3/Mag/Zn/Transportation Lead/Toby/[place] [Calcium 600 MG Plus Vit D] 1 tab PO DAILY [History] Cyanocobalamin (Vitamin B-12) [Cyanocobalamin Injection] 1,000 mcg IM ASDIRECTED 04/25/15 [History] Cyanocobalamin/FA/Pyridoxine [B Complex-Folic Acid] 1 tab PO DAILY 04/25/15 [ History] Lisinopril 10 mg PO DAILY #30 tablet 04/27/15 [Rx] Acetaminophen [Tylenol] 650 mg PO Q6H cup 07/03/17 [Rx] Celecoxib [CeleBREX] 200 mg PO DAILY@0800 #14 cap 07/03/17 [Rx] Docusate Sodium [Colace] 100 mg PO BID cap 07/03/17 [Rx] Furosemide [Lasix] 20 mg PO DAILY #5 tab 07/03/17 [Rx] Ondansetron [Zofran ODT] 4 mg PO Q4H PRN #30 tab.dis 07/03/17 [Rx] Potassium Chloride 20 meq PO DAILY #5 tablet.er 07/03/17 [Rx] Tamsulosin [Flomax] 0.4 mg PO BEDTIME #30 cap.er 07/03/17 [Rx] Referrals: Desire Hale PA-C [Physician Nut Former] - 07/10/17 10:15 am Cleveland Montero MD [Primary Care Provider] - - General Info Date of Service: 07/03/17 Subjective Update: Patient reports that he is feeling well today. He was up eating breakfast during visit, stated that he was tolerating it well with no nausea. His legs feel better this morning and he feels less distended. He feels ready to go home. Functional Status: Reports: Pain Controlled, Tolerating Diet, Ambulating, Urinating, Incentive Spirometry - Review of Systems General: Reports: No Symptoms HEENT: Reports: No Symptoms Pulmonary: Reports: No Symptoms Cardiovascular: Reports: No Symptoms Gastrointestinal: Reports: No Symptoms Genitourinary: Reports: No Symptoms Musculoskeletal: Reports: Leg Pain (leg tightness improving) Skin: Reports: No Symptoms Neurological: Reports: No Symptoms Psychiatric: Reports: No Symptoms - Patient Data Vitals - Most Recent: Last Vital Signs Temp 36.8 C 07/03/17 07:24 Pulse 73 07/03/17 07:24 Resp 16 07/03/17 07:24 BP 149/76 H 07/03/17 07:24 Pulse Ox 98 07/03/17 07:24 Weight - Most Recent: 107.6 kg I&O - Last 24 hours: Intake & Output 07/02/17 07/03/17 07/03/17 22:59 06:59 14:59 Intake Total 718 1200 Output Total 2450 Balance -1732 1200 Lab Results - Last 24 hrs: Laboratory Results - last 24 hr 07/03/17 Range/Units 04:33 Sodium 142 (140-148) mmol/L Potassium 3.9 (3.6-5.2) mmol/L Chloride 104 (100-108) mmol/L Carbon Dioxide 31 (21-32) mmol/L Anion Gap 7.0 (5.0-14.0) mmol/L BUN 13 (7-18) mg/dL Creatinine 1.1 (0.8-1.3) mg/dL Est Cr Clr Drug Dosing 70.28 mL/min Estimated GFR (MDRD) > 60 (>60) Glucose 93 (74-106) mg/dL Calcium 8.2 L (8.5-10.1) mg/dL Phosphorus 3.0 (2.5-4.9) mg/dL Magnesium 2.1 (1.8-2.4) mg/dL NT-Pro-B Natriuret Pep 886 H (5-125) pg/mL Med Orders - Current: Current Medications Acetaminophen (Tylenol) 650 mg PO Q6H [facility] Last Admin: 07/03/17 04:21 Dose: 650 mg Bisacodyl (Dulcolax) 10 mg PO BID [facility] Last Admin: 07/02/17 21:32 Dose: 10 mg Bisacodyl (Dulcolax) 10 mg RECTAL BID PRN PRN Reason: Constipation Last Admin: 06/30/17 23:41 Dose: 10 mg Celecoxib (Celebrex) 200 mg PO DAILY@0800 [facility] Last Admin: 07/02/17 08:44 Dose: 200 mg Docusate Sodium (Colace) 100 mg PO BID [facility] Last Admin: 07/02/17 21:32 Dose: 100 mg Gabapentin (Neurontin) 300 mg PO TID [facility] Last Admin: 07/02/17 21:39 Dose: 300 mg Heparin Sodium (Porcine) (Heparin Sodium) 5,000 units SUBCUT Q8H [facility] Last Admin: 07/02/17 23:04 Dose: 5,000 units Hydroxyzine HCl (Vistaril) 75 - 100 mg IM Q4H PRN PRN Reason: pain Lisinopril (Prinivil) 10 mg PO DAILY [facility] Last Admin: 07/02/17 08:46 Dose: 10 mg Magnesium Citrate (Citrate Of Magnesia) 148 ml PO DAILY [facility] Last Admin: 07/02/17 10:23 Dose: 148 ml Metoclopramide HCl (Reglan) 10 mg PO QID [facility] Last Admin: 07/02/17 21:39 Dose: 10 mg Ondansetron HCl (Zofran Odt) 4 mg PO Q4H PRN PRN Reason: Nausea/Vomiting Last Admin: 06/29/17 02:17 Dose: 4 mg Pantoprazole Sodium (Protonix) 40 mg PO Q24H [facility] Last Admin: 07/02/17 15:27 Dose: 40 mg Senna/Docusate Sodium (Senna Plus) 2 tab PO BID [facility] Last Admin: 07/02/17 21:33 Dose: 2 tab Sodium Chloride (Saline Flush) 10 ml FLUSH ASDIRECTED PRN PRN Reason: Keep Vein Open Tamsulosin HCl (Flomax) 0.4 mg PO BEDTIME [facility] Last Admin: 07/02/17 21:33 Dose: 0.4 mg Discontinued Medications Bisacodyl (Dulcolax) 20 mg PO BID [facility] Last Admin: 06/25/17 21:03 Dose: 20 mg Bisacodyl (Dulcolax) 10 mg RECTAL BID [facility] Last Admin: 06/27/17 08:08 Dose: 10 mg Bisacodyl (Dulcolax) 10 mg RECTAL Q8H [facility] Last Admin: 06/28/17 03:05 Dose: 10 mg Ropivacaine 54 ml/Dexamethasone 8 mg/Epinephrine HCl 0.4 mg/ Sodium Chloride 23.6 ml 0 ml NERVRT ONETIME ONE Stop: 06/23/17 08:01 Last Admin: 06/23/17 08:29 Dose: 80 syringe Cyanocobalamin (Vitamin B12) 1,000 mcg IM ONETIME ONE Stop: 06/25/17 09:01 Last Admin: 06/25/17 09:23 Dose: 1,000 mcg Dexamethasone (Dexamethasone) Confirm Administered Dose 4 mg .ROUTE .STK-MED ONE Stop: 06/23/17 06:41 Diphenhydramine HCl (Benadryl) 25 - 50 mg IVPUSH Q4H PRN PRN Reason: ITCHING Erythromycin (Xiang-Tab) 250 mg PO Q8H [facility] Last Admin: 06/29/17 00:23 Dose: 250 mg Fentanyl (Sublimaze) Confirm Administered Dose 250 mcg .ROUTE .STK-MED ONE Stop: 06/23/17 06:41 Fentanyl (Sublimaze) Confirm Administered Dose 100 mcg .ROUTE .STK-MED ONE Stop: 06/23/17 09:24 Furosemide (Lasix) 20 mg IVPUSH ONETIME ONE Stop: 07/02/17 09:01 Last Admin: 07/02/17 10:23 Dose: 20 mg Furosemide (Lasix) 20 mg IVPUSH ONETIME STA Stop: 07/02/17 16:22 Last Admin: 07/02/17 17:03 Dose: 20 mg Glycopyrrolate (Robinul) Confirm Administered Dose 1 mg .ROUTE .STK-MED ONE Stop: 06/23/17 06:41 Hydromorphone HCl (Dilaudid Sound Tester 15 Mg In Ns 30 Ml) 15 mg IV ASDIRECTED [facility]; Protocol Last Admin: 06/23/17 04:28 Dose: 15 mg Hydromorphone HCl (Dilaudid Sound Tester 15 Mg In Ns 30 Ml) 0 mg IV ASDIRECTED PRN; Protocol PRN Reason: Pain Lactated Ringer's (Ringers, Lactated) 1,000 mls @ 1,000 mls/hr IV BOLUS ONE Stop: 06/23/17 02:16 Last Admin: 06/23/17 01:45 Dose: 1,000 mls/hr Sodium Chloride (Normal Saline) 85 mls @ 4 mls/sec IV ASDIRECTED [facility] Stop: 06/23/17 02:16 Last Admin: 06/23/17 02:28 Dose: 4 mls/sec Lactated Ringer's (Ringers, Lactated) 1,000 mls @ 200 mls/hr IV ASDIRECTED [facility] Last Admin: 06/23/17 03:30 Dose: 200 mls/hr Lidocaine HCl/Dextrose (Lidocaine 2 Gm/D5w 500 Ml) 2 gm in 500 mls @ 30 mls/hr IV .[id number] [facility] Stop: 06/24/17 00:39 Last Admin: 06/23/17 11:39 Dose: 2 mg/min, 30 mls/hr Ketamine HCl 100 mg/ Sodium (Chloride) 100 mls @ 24 mls/hr IV ASDIRECTED [facility] Stop: 06/23/17 10:00 Cefoxitin Sodium 2 gm/ Sodium (Chloride) 50 mls @ 100 mls/hr IV ONETIME ONE Stop: 06/23/17 08:29 Last Admin: 06/23/17 08:00 Dose: 100 mls/hr Dextrose/Lactated Ringer's (Dextrose 5%-Lactated Ringers) 1,000 mls @ 150 mls/ hr IV ASDIRECTED [facility] Last Admin: 06/23/17 11:38 Dose: 150 mls/hr Dextrose/Lactated Ringer's (Dextrose 5%-Lactated Ringers) 1,000 mls @ 175 mls/ hr IV ASDIRECTED [facility] Last Admin: 06/24/17 06:19 Dose: 175 mls/hr Multivitamins/Minerals 10 ml/Thiamine HCl 100 mg/ Chromium/Copper/Manganese/ Seleni/Zn 1 ml/ Dextrose/Lactated Ringer's 1,012 mls @ 175 mls/hr IV DAILY@ 1600 [facility] Last Admin: 06/23/17 17:36 Dose: 175 mls/hr Cefoxitin Sodium 2 gm/ Sodium (Chloride) 50 mls @ 100 mls/hr IV Q6H [facility] Stop: 06/24/17 08:29 Last Admin: 06/24/17 08:14 Dose: 100 mls/hr Dextrose/Lactated Ringer's (Dextrose 5%-Lactated Ringers) 1,000 mls @ 100 mls/ hr IV ASDIRECTED [facility] Last Admin: 06/25/17 01:24 Dose: 100 mls/hr Multivitamins/Minerals 10 ml/Thiamine HCl 100 mg/ Chromium/Copper/Manganese/ Seleni/Zn 1 ml/ Dextrose/Lactated Ringer's 1,012 mls @ 100 mls/hr IV DAILY@ 1600 [facility] Last Admin: 06/24/17 15:19 Dose: 100 mls/hr Dextrose/Lactated Ringer's (Dextrose 5%-Lactated Ringers) 1,000 mls @ 100 mls/ hr IV ASDIRECTED [facility] Last Admin: 06/28/17 05:23 Dose: 100 mls/hr Dextrose/Lactated Ringer's (Dextrose 5%-Lactated Ringers) 1,000 mls @ 100 mls/ hr IV ASDIRECTED [facility] Last Admin: 07/01/17 21:15 Dose: 100 mls/hr Iohexol (Omnipaque-300) 50 ml PO .ASDIRECTED [facility] Stop: 06/24/17 03:27 Last Admin: 06/24/17 03:35 Dose: 50 ml Iopamidol (Isovue-300 (61%)) 150 ml IV . DIRECTED STA Stop: 06/23/17 02:16 Last Admin: 06/23/17 02:27 Dose: 150 ml Ketamine HCl (Ketalar) 40 mg IV ONETIME ONE Stop: 06/23/17 08:01 Last Admin: 06/23/17 11:39 Dose: Not Given Labetalol HCl (Normodyne) 5 - 15 mg IVPUSH Q1H PRN PRN Reason: SBP over 160 OR DBP over 95 Lidocaine HCl (Xylocaine 2%) 136 mg IVPUSH ONETIME ONE Stop: 06/23/17 08:01 Last Admin: 06/23/17 11:39 Dose: Not Given Magnesium Citrate (Citrate Of Magnesia) 296 ml PO ONETIME ONE Stop: 06/30/17 11:01 Last Admin: 06/30/17 10:54 Dose: 296 ml Magnesium Citrate (Citrate Of Magnesia) 296 ml PO ONETIME ONE Stop: 07/01/17 09:01 Last Admin: 07/01/17 09:30 Dose: 296 ml Meropenem (Merrem) Confirm Administered Dose 500 mg .ROUTE .STK-MED ONE Stop: 06/23/17 06:46 Last Admin: 06/23/17 09:14 Dose: 500 mg Metoclopramide HCl (Reglan) 10 mg IVPUSH ONETIME ONE Stop: 06/23/17 01:18 Last Admin: 06/23/17 01:45 Dose: 10 mg Metoclopramide HCl (Reglan) 10 mg IVPUSH Q6H PRN PRN Reason: NAUSEA NOT CONTROL BY ZOFRAN Metoclopramide HCl (Reglan) 10 mg IVPUSH Q6H [facility] Last Admin: 07/02/17 03:27 Dose: 10 mg Miscellaneous Information (Remove Patch) 1 ea TRDERM ONETIME ONE Stop: 06/25/17 10:01 Last Admin: 06/25/17 09:24 Dose: 1 ea Naloxone HCl (Narcan) 0.1 mg IV ASDIRECTED PRN PRN Reason: decreased respiratory rate Neostigmine Methylsulfate (Neostigmine) Confirm Administered Dose 5 mg .ROUTE .STK-MED ONE Stop: 06/23/17 06:41 Scopolamine Patch (Check) 1 each TOP DAILY [facility] Stop: 06/25/17 12:01 Last Admin: 06/25/17 09:24 Dose: Not Given Ondansetron HCl (Zofran) Confirm Administered Dose 4 mg .ROUTE .STK-MED ONE Stop: 06/23/17 06:41 Ondansetron HCl (Zofran) 4 mg IVPUSH Q4H PRN PRN Reason: Nausea/Vomiting Last Admin: 06/27/17 21:38 Dose: 4 mg Pantoprazole Sodium (Protonix Iv) 40 mg IVPUSH Q24H [facility] Last Admin: 06/23/17 14:20 Dose: 40 mg Propofol (Diprivan 20 Ml) Confirm Administered Dose 200 mg .ROUTE .STK-MED ONE Stop: 06/23/17 06:41 Rocuronium [place] (Zemuron) Confirm Administered Dose 50 mg .ROUTE .STK-MED ONE Stop: 06/23/17 06:41 Rocuronium [place] (Zemuron) Confirm Administered Dose 50 mg .ROUTE .STK-MED ONE Stop: 06/23/17 09:12 Scopolamine (Transderm-Scop) 1.5 mg TOP Q72H [facility] Stop: 06/25/17 10:00 Last Admin: 06/23/17 14:19 Dose: 1.5 mg Succinylcholine Chloride (Quelicin) Confirm Administered Dose 200 mg .ROUTE .STK -MED ONE Stop: 06/23/17 06:41 - Exam General: Reports: Alert, Oriented, Cooperative, No Acute Distress HEENT: Reports: Pupils Equal, Pupils Reactive Neck: Reports: Supple, Trachea Midline Lungs: Reports: Clear to Auscultation, Normal Respiratory Effort Cardiovascular: Reports: Regular Rate, Regular Rhythm GI/Abdominal Exam: Normal Bowel Sounds, Soft, Distended (much improved) (Male) Exam: Deferred Rectal (Males) Exam: Deferred Back Exam: Reports: Normal Inspection Extremities: Pedal Edema (trace to bilateral LE; romina hose on ) Skin: Reports: Warm, Dry, Intact Wound/Incisions: Reports: Healing Well Neurological: Reports: No New Focal Deficit Psy/Mental Status: Reports: Alert, Normal Affect, Normal Mood Discharge Operative/Procedures - Procedures Performed Operations: S/p exploratory laparotomy on 06/23/2017 - see procedure comments Operations/Procedure Comment: S/p exploratory laparotomy with revision of jejunojejunostomy, sigmoid colon resection, umbilical hernia repair, small bowel resection
--- NOTE | 2017-07-03 08:48 | CR ---
Abdomen 2V AP Flat Upright CLINICAL HISTORY: Ileus FINDINGS: There is persistent the small bowel and the colonic distention. There are scattered air-flu id levels throughout. There is minimal gas in the rectosigmoid colon. IMPRESSION: Persistent the small bowel and colonic distention in a similar pattern. There is a relative paucity of gas in the rectosigmoid colon. A partial descending colon obstruction is not excluded.
[2017-07-03] MEDS: Gabapentin 250 MG/5 ML Solution ML 470 ML Bottle PO SCH (10:10)
== END 2017-07-03 10:50 | disposition home or self-care (01) | DRG 345 ==
LOC: JP.ED 00:45 → JP.SDS 06:25 → JP.2SS 10:10
PROVIDERS: ADMIT Surgery; ATTEND Surgery
PROC: 3E0T3BZ Introduction of Anesthetic Agent into Peripheral Nerves and Plexi, Percutaneous Approach (ICD-10-PCS; principal; 2017-06-23)
PROC: 0D980ZZ Drainage of Small Intestine, Open Approach (ICD-10-PCS; 2017-06-23)
PROC: 0WQF0ZZ Repair Abdominal Wall, Open Approach (ICD-10-PCS; 2017-06-23)
PROC: 0DBA0ZX Excision of Jejunum, Open Approach, Diagnostic (ICD-10-PCS; 2017-06-23)
PROC: 0DBP0ZX Excision of Rectum, Open Approach, Diagnostic (ICD-10-PCS; 2017-06-23)
PROC: 0DBN0ZX Excision of Sigmoid Colon, Open Approach, Diagnostic (ICD-10-PCS; 2017-06-23)
PROC: 0WQF0ZZ Repair Abdominal Wall, Open Approach (ICD-10-PCS; 2017-06-23)
PROC: 0DBU0ZZ Excision of Omentum, Open Approach (ICD-10-PCS; 2017-06-23)
PROC: 0DQV0ZZ Repair Mesentery, Open Approach (ICD-10-PCS; 2017-06-23)
DX: K56.2 Volvulus (principal); K43.0 Incisional hernia with obstruction, without gangrene; I96 Gangrene, not elsewhere classified; K56.51 Intestinal adhesions [bands], with partial obstruction; K63.89 Other specified diseases of intestine; K46.9 Unspecified abdominal hernia without obstruction or gangrene; K42.9 Umbilical hernia without obstruction or gangrene; I10 Essential (primary) hypertension; Z98.84 Bariatric surgery status; R11.10 Vomiting, unspecified; R10.84 Generalized abdominal pain; Z98.0 Intestinal bypass and anastomosis status; E53.8 Deficiency of other specified B group vitamins; H54.7 Unspecified visual loss; R14.0 Abdominal distension (gaseous); R60.9 Edema, unspecified; T47.4X5A Adverse effect of other laxatives, initial encounter; Y92.239 Unspecified place in hospital as the place of occurrence of the external cause
CPT/HCPCS: 36415; 43848; 44021; 44050; 44150; 49255; 49561; 49585; 74177; 80048; 83690; 85027; 86140; 88302; 88305; 88307; 96361; 96374; 96375; 99284; 99285; J0171; J0330; J0694; J1100 ×2; J1170; J2185; J2405; J2704; J2710; J2765; J2795; J3010 ×2; J7030; J7042; J7050 ×2; J7120 ×2; 74019; 74019-26; 74240; 74240-26; 80053; 83735; 83880; 84100; A9270-GY; C9113; J1644; J1940; J2001; J3411; J3420; Q9967

== ENCOUNTER 2018-06-04 14:44 | Inpatient (IN) | payer MEDICARE, BC ==
[2018-06-04] MEDS ORDERED: Acetaminophen 650 MG Supp RECTAL PRN (15:27)
[2018-06-04] MEDS ORDERED: Acetaminophen 325 MG Tab PO PRN (15:27)
[2018-06-04] MEDS ORDERED: Ondansetron 4 MG/2 ML SDV IVPUSH PRN (15:27)
[2018-06-04] MEDS ORDERED: HYDROmorphone 1 MG/ML Syringe IV PRN (15:31)
[2018-06-04] MEDS: Dextrose 5%-Lactated Ringers 1,000 ML IV SCH (16:29)
[2018-06-04] MEDS: Pantoprazole 40 MG Vial IV SCH (16:32)
[2018-06-04] MEDS: Ampicillin/Sulbactam Na 3 GM in Sodium Chloride 0.9% 100 ML IV SCH ×2 (16:39→21:38)
[2018-06-04] MEDS: Aztreonam/Dextrose-Water 1 GM in Premix Bag 1 BAG IV SCH (17:25)
[2018-06-04] MEDS ORDERED: Lisinopril 10 MG Tab PO ONE (20:00)
[2018-06-05] MEDS: Aztreonam/Dextrose-Water 1 GM in Premix Bag 1 BAG IV SCH ×4 (00:26→20:56)
[2018-06-05] MEDS: Ampicillin/Sulbactam Na 3 GM in Sodium Chloride 0.9% 100 ML IV SCH ×4 (04:07→20:57)
[2018-06-05] MEDS: Dextrose 5%-Lactated Ringers 1,000 ML IV SCH (04:14)
--- NOTE | 2018-06-05 07:55 | PN ---
DATE OF SERVICE: 06/05/2018 SUBJECTIVE: Cyrus is n.p.o. He will be having a laparoscopic possible open cholecystectomy today. Pain has been well managed. Vital signs have been stable. He has no questions or concerns. OBJECTIVE: GENERAL: Cyrus is a 73-year-old male, alert, and orientated. VITAL SIGNS: TPR 96.3, 54, 16. Blood pressure 140/71. HEENT: Negative. NECK: Supple. HEART: Regular rate and rhythm. LUNGS: Clear. ABDOMEN: Mid epigastric and right mid upper quadrant abdominal pain. EXTREMITIES: Without peripheral edema. ASSESSMENT: Cholecystitis. PLAN: 1. Check EKG to be done before surgery. 2. Incentive spirometer 10 times every hour while awake. This is the 2nd order. Recommend that the patient is to be instructed and to be using this preoperatively. 3. We will evaluate p.r.n. or in a.m. Desire Hale PA-C /[id number]
[2018-06-05] MEDS ORDERED: Lisinopril 10 MG Tab PO SCH (09:00)
[2018-06-05] MEDS ORDERED: fentaNYL 250 MCG/5 ML SDV ONE ×2 (10:14→14:38)
[2018-06-05] MEDS ORDERED: Ondansetron 4 MG/2 ML SDV ONE (10:15)
[2018-06-05] MEDS ORDERED: Succinylcholine 200 MG/10 ML MDV ONE (10:15)
[2018-06-05] MEDS ORDERED: Rocuronium 50 MG/5 ML Vial ONE ×2 (10:15→14:27)
[2018-06-05] MEDS ORDERED: Neostigmine Methylsulfate 1 MG/ML 5 ML Syringe ONE (10:15)
[2018-06-05] MEDS ORDERED: Propofol 200 MG/20 ML SDV ONE (10:15)
[2018-06-05] MEDS ORDERED: Glycopyrrolate 0.2 MG/ML 5 ML MDV ONE (10:15)
[2018-06-05] MEDS ORDERED: Dexamethasone 4 MG/ML SDV ONE (10:15)
[2018-06-05] MEDS ORDERED: Bupivacaine 0.5%/EPINEPHrine 1:200,000 50 ML MDV ONE (10:20)
[2018-06-05] MEDS ORDERED: Ropivacaine 52 ML, Dexamethasone 8 MG, EPINEPHrine 0.4 MG, Sodium Chloride 0.9% 25.6 ML NERVRT SCH ×4 (12:00)
[2018-06-05] MEDS ORDERED: Naloxone 0.4 MG/ML SDV IVPUSH PRN (12:56)
[2018-06-05] MEDS ORDERED: HYDROmorphone/Normal Saline 15 MG/30 ML PCA IV PRN (12:56)
[2018-06-05] MEDS ORDERED: Lactated Ringers 1,000 ML ONE ×2 (13:59→15:48)
[2018-06-05] MEDS ORDERED: Meropenem 500 MG SDV ONE ×2 (15:00→16:03)
[2018-06-05] MEDS ORDERED: Labetalol 20 MG/4 ML Syringe ONE (15:02)
[2018-06-05] MEDS ORDERED: hydrALAZINE 20 MG/ML SDV ONE (15:15)
[2018-06-05] MEDS ORDERED: Sodium Chloride 0.9% 500 ML ONE (16:42)
[2018-06-05] MEDS ORDERED: Dextrose 5%-Lactated Ringers 1,000 ML IV SCH ×2 (17:30→19:30)
[2018-06-05] MEDS ORDERED: Metoclopramide 10 MG/2 ML SDV IVPUSH PRN (17:31)
[2018-06-05] MEDS ORDERED: diphenhydrAMINE 50 MG/ML SDV IVPUSH PRN (17:31)
[2018-06-05] MEDS ORDERED: hydrOXYzine HCl 100 MG/2 ML SDV IM PRN (17:31)
[2018-06-05] MEDS ORDERED: hydrOXYzine HCl 100 MG/2 ML SDV IM ONE (17:33)
[2018-06-05] MEDS ORDERED: Meperidine PF 100 MG/ML Syringe IM ONE (17:57)
[2018-06-05] MEDS ORDERED: Ondansetron 4 MG/2 ML SDV IVPUSH PRN (19:24)
[2018-06-05] MEDS: Pantoprazole 40 MG Vial IV SCH (19:37)
[2018-06-05] MEDS: Acetaminophen 500 MG Tab PO SCH (19:40)
[2018-06-05] MEDS ORDERED: MVI, Adult with Vitamin K 10 ML, Thiamine 200 MG, Chromium/Copper/Mang/Selen/Zn 1 ML in... IV SCH ×4 (20:00)
[2018-06-05] MEDS: Labetalol 20 MG/4 ML Syringe IVPUSH PRN (21:20)
[2018-06-06] MEDS: Ampicillin/Sulbactam Na 3 GM in Sodium Chloride 0.9% 100 ML IV SCH ×4 (01:34→21:05)
[2018-06-06] MEDS: Acetaminophen 500 MG Tab PO SCH ×5 (01:34→23:22)
[2018-06-06] MEDS: Aztreonam/Dextrose-Water 1 GM in Premix Bag 1 BAG IV SCH ×3 (03:36→19:59)
[2018-06-06] MEDS ORDERED: Dextrose 5%-Lactated Ringers 1,000 ML IV SCH (07:45)
--- NOTE | 2018-06-06 08:30 | OR ---
DATE OF PROCEDURE: 06/05/2018 PREOPERATIVE DIAGNOSIS: Acute cholecystitis. POSTOPERATIVE DIAGNOSIS: Acute and subacute cholecystitis with inflammatory effusion of hepatic flexure of colon and portion of right lobe of the liver. OPERATIVE PROCEDURES: Diagnostic laparoscopy with conversion to laparotomy with: 1. Cholecystectomy (88890). 2. En bloc right colectomy (75331). 3. Partial right hepatic lobectomy (74486). 4. Drainage of intraabdominal abscess (67433). ANESTHESIA: General. TELEGRAPH REPEATER INSTALLER: Desire Hale PA-C. INDICATIONS FOR PROCEDURE: This is a 73-year-old admitted yesterday with a picture of acute cholecystitis. The radiologist reports quite intense inflammatory changes in and around the gallbladder. Plan is to proceed with diagnostic laparoscopy, laparotomy if necessary, and cholecystectomy with other procedures as indicated. The patient does have a large piece of central abdominal mesh placed for previous hernia repair, and we will try to get in lateral to that area for the laparoscopic approach. Potential risks of procedure including bleeding, infection, injury to underlying viscera, possibility that the mesh may become infected, problems with the cholecystectomy such as injury to common bile duct or stones migrating into the common duct were reviewed, and the patient wishes to proceed. He is also aware of the potential cardiopulmonary, septic, or hemorrhagic complications leading to . DETAILS OF PROCEDURE: The patient was taken to the operating room, and after general endotracheal anesthesia was induced, the abdomen was prepped and draped. Initially, in the right mid lateral abdomen, peritoneal cavity was entered under direct vision with Optiview trocar, inflated to 15 mmHg pressure of CO2. The patient was noted to have some adhesions between the liver and the anterior abdominal wall. A 5 mm trocar was placed in the right subcostal area and some of the adhesions were taken down to the point that the area around the gallbladder could be visualized. The 12 mm epigastric port was then placed. Upon initiation of dissection, it became quite clear fairly quickly that there was essentially inflammatory effusion, i.e., no dissection plane safe by laparoscopic approach between the hepatic flexures of the colon and the gallbladder. A decision was made at that point to convert to an open approach, trocars were removed, and peritoneal cavity deflated. Prior to that, bilateral subcostal transversus abdominis plane blocks had been placed. A right subcostal incision was then used between the 2 trocar sites and extending somewhat lateral to that. As one entered the peritoneal cavity, the essentially solid nature of the hepatic flexure of the colon and the gallbladder was evident. The gallbladder itself was not actually visible or palpable at this point, as the colon had adhered to it over the anterior aspect where it came up to the edge of the liver. Eventually using some blunt dissection, a plane was established behind the gallbladder. This had a quite poor dissection plane, not a typical acute cholecystitis, which will often just peel off the liver bed with blunt dissection. This was eventually taken down to roughly half-way down the gallbladder bed from the anterior to posterior direction. Posterior to that, there was an intraabdominal abscess, which was identified with some creamy purulent material, and this was evacuated and cultures were sent. At this point, it became quite evident we might need to resect that portion of the colon, along with the gallbladder, both in that dissecting the colon off would likely lead it to be damaged over an extensive area and the possibility that we may be dealing with a malignant process, either with the gallbladder penetrating into the colon or vice versa in terms of the primary tumor site. Given this, at that point, the lateral peritoneal reflection of the cecum and ascending colon were divided and this extended upward. There was quite a bit of inflammatory change between the hepatic flexure of the colon and the posterior retroperitoneum. This was carefully dissected free from the retroperitoneal structures, including the right ureter and duodenum. At that point, the distal small bowel was divided just proximal to the ileocecal valve with the ROSE MARY stapler, and the mid transverse colon just to the right of the middle colic vessels was also divided with ROSE MARY staplers, and the mesentery between those 2 points then divided with vascular mesenteric staple loads. At this point, the dissection began posteriorly. We elected to resect some of the liver en bloc with the gallbladder, as that dissection plane was not clean, and we accomplished this with less blood loss by means of stapling the liver. This eventually led the dissection to the point where the neck of the gallbladder was encountered. Using very tedious dissection, this was dissected away from the common bile duct. The common hepatic duct and common bile duct on the right aspect were eventually dissected over a length of around 5 cm. The cystic artery and cystic duct as they appeared in the dissection were then taken with ROSE MARY lilly with there being clear visualization of the common bile duct adjacent to the stapler. The remaining soft tissues of the gallbladder were then taken down in the area of the infundibulum of the gallbladder, and at that point, the specimen consisting of portion of the liver, gallbladder, and right colon were delivered en bloc. The patient has quite a bit of oozing on the posterior aspect of the liver bed, and additional liver was then resected at that point to control that bleeding with series of ROSE MARY lilly, and at that point, after brief packing and some cauterization, good hemostasis in the liver was established. The abdomen was then irrigated with an antibiotic-containing saline solution, and at this point then, the ileocolic anastomosis was accomplished with 2 internal firings of the ROSE MARY 60 mm stapler. The common opening was then closed transversely with the same stapler and angles anastomosed and mesenteric defect approximated with some 3-0 Vicryl stitch. The liver resection bed and then the ileocolic anastomoses were then reinforced with some fibrin sealant. Two Urbano-White drains were then placed through stab wounds lateral to the incision and one placed in the subphrenic area on the right side, other into the area of the gallbladder bed and adjacent to the common bile duct. At this point, the amount of contamination appeared to have been fairly minimal, and we thought a primary closure of the incision would be warranted. The posterior peritoneum was approximated with #2 Vicryl stitch, as was the anterior fascia. Subcutaneous tissue was approximated in 2 layers of 3-0 and 4-0 Vicryl stitch deep and lilly for the skin. 4-0 Vicryl was also used to attach the drains. The patient was then taken to the recovery room in satisfactory condition. There were no evident complications. At the conclusion of the procedure, off the field, the gallbladder and the colon were opened, and there was not any gross evidence of tumor in those specimens. Physician facility assistant, Desire Hale, played an essential role in assisting in this case, helping to position the patient, retract structures as needed, as well as suturing and stapling when indicated. Her presence improved patient safety and decreased operative time. Gregg Ramsey MD /[id number]
[2018-06-06] MEDS: Lisinopril 10 MG Tab PO SCH (08:57)
[2018-06-06] MEDS ORDERED: Naloxone 0.4 MG/ML SDV IV PRN (08:58)
[2018-06-06] MEDS ORDERED: MVI, Adult with Vitamin K 10 ML, Chromium/Copper/Mang/Selen/Zn 1 ML, Thiamine 200 MG in... IV SCH ×4 (09:00)
[2018-06-06] MEDS: Magnesium Sulfate/Water 2 GM in Premix Bag 1 BAG IV SCH ×3 (10:41→21:56)
[2018-06-06] MEDS ORDERED: MVI, Adult with Vitamin K 10 ML, Thiamine 200 MG, Chromium/Copper/Mang/Selen/Zn 1 ML in... IV SCH ×4 (16:00)
[2018-06-06] MEDS: Labetalol 20 MG/4 ML Syringe IVPUSH PRN ×3 (16:20→16:35)
[2018-06-06] MEDS: Pantoprazole 40 MG Delayed-Release Granules 1 Packet PO SCH (18:00)
[2018-06-06] MEDS ORDERED: Benzocaine/Cetylpyridinium/Menthol Lozenge MUCMEM PRN (21:59)
[2018-06-07] MEDS: Ampicillin/Sulbactam Na 3 GM in Sodium Chloride 0.9% 100 ML IV SCH ×4 (01:28→19:40)
[2018-06-07] MEDS: Magnesium Sulfate/Water 2 GM in Premix Bag 1 BAG IV SCH ×4 (02:15→20:44)
[2018-06-07] MEDS: Aztreonam/Dextrose-Water 1 GM in Premix Bag 1 BAG IV SCH ×3 (04:14→19:39)
[2018-06-07] MEDS: Acetaminophen 500 MG Tab PO SCH ×4 (05:25→23:32)
[2018-06-07] MEDS ORDERED: Dextrose 5%-Lactated Ringers 1,000 ML IV SCH (07:14)
[2018-06-07] MEDS ORDERED: Magnesium Hydroxide 400 MG/5 ML Susp 30 ML Cup PO ONE (08:00)
[2018-06-07] MEDS ORDERED: Cyanocobalamin (Vitamin B12) 1,000 MCG/ML SDV IM ONE (09:00)
[2018-06-07] MEDS: Lisinopril 10 MG Tab PO SCH (11:10)
--- NOTE | 2018-06-07 11:11 | PN ---
DATE OF SERVICE: 06/06/2018 HISTORY OF PRESENT ILLNESS: Jasper has been up ambulating frequently in the mcneil. He has not had a bowel movement since surgery, but is starting to pass a little bit of flatus. Oral intake 1260, urine output 1450. BILLY drains have put out 60 and 75 respectively of a light red drainage. He is taking Tylenol for pain and has not used his METERS SUPERINTENDENT. REVIEW OF SYSTEMS: Remainder of review of systems negative for any pertinent positives or negatives. OBJECTIVE: GENERAL: Jasper Peralta is a pleasant 73-year-old male. VITAL SIGNS: TPR 95.9, 72, 18, blood pressure 176/75. HEENT: Negative. NECK: Supple. HEART: Regular rate and rhythm. LUNGS: Clear. ABDOMEN: Dressings are dry and intact. Abdominal binder is on. EXTREMITIES: Without peripheral edema. ASSESSMENT: Diagnostic laparoscopy with conversion to laparotomy with: 1. Cholecystectomy. 2. En bloc right colectomy. 3. Partial right hepatic lobectomy. 4. Drainage of intraabdominal abscess for acute and subacute cholecystitis with inflammatory effusion of hepatic flexure of colon and portion of the right lobe of the liver. Date of surgery, 06/05/2018. 5. One unit of packed red blood cells given for intraoperative bleeding. PLAN: 1. Dressing off. May shower. 2. Senna Plus 2 tabs p.o. at bedtime. 3. Milk of magnesia 1 time this a.m. 4. Decrease D5LR to TKO. 5. Discontinue METERS SUPERINTENDENT. 6. Discontinue continuous pulse ox. 7. Check CBC, CMP, and phosphorus in a.m. 8. Good pulmonary toilet. 9. We will evaluate p.r.n. or in a.m. Desire Hale PA-C /[id number] RENITA
[2018-06-07] MEDS: Pantoprazole 40 MG Delayed-Release Granules 1 Packet PO SCH (19:40)
[2018-06-08] MEDS: Ampicillin/Sulbactam Na 3 GM in Sodium Chloride 0.9% 100 ML IV SCH (01:02)
[2018-06-08] MEDS: Magnesium Sulfate/Water 2 GM in Premix Bag 1 BAG IV SCH (02:01)
[2018-06-08] MEDS: Aztreonam/Dextrose-Water 1 GM in Premix Bag 1 BAG IV SCH (04:03)
[2018-06-08] MEDS: Acetaminophen 500 MG Tab PO SCH ×3 (05:39→18:34)
[2018-06-08] MEDS ORDERED: Ondansetron 4 MG Tab.DIS PO PRN (07:05)
--- NOTE | 2018-06-08 07:57 | PN ---
DATE OF SERVICE: 06/08/2018 SUBJECTIVE: Jasper has not had a bowel movement yet, but states he is passing a lot of flatus. He has been up, ambulating quite a bit. Blood pressure has been running a little bit higher than what he normally has. It has been 164/64, 184/70, 179/68, 190/90, and 175/80. He has had only higher blood pressure when he was brought in by ambulance to [facility], but prior to that, his blood pressure has been normal. He will feel, when he was walking, some pressure in his head, which indicated to him his blood pressure was a little bit high. Denies any other symptoms. Surgical pain is controlled with Tylenol. He has no other concerns or questions. Gram stain wound culture sensitivity was back, and it showed E. coli and sensitive to Augmentin. OBJECTIVE: GENERAL: Cyrus Peralta is a 73-year-old male. He is alert and orientated. VITAL SIGNS: TPR; 96.7, 63, 16. Blood pressure 179/68. HEENT: Negative. NECK: Supple. HEART: Regular rate and rhythm. LUNGS: Clear. ABDOMEN: Dressings dry and intact. Abdominal binder is on. EXTREMITIES: Revealed trace peripheral edema. ASSESSMENT: Diagnostic laparoscopy with conversion to laparotomy with: 1. Cholecystectomy. 2. En bloc right colectomy. 3. Partial right hepatic lobectomy. 4. Drainage of intraabdominal abscess for acute and subacute cholecystitis with inflammatory effusion of hepatic flexure of colon and portion of the right lobe of the liver. Date of surgery, 06/05/2018. 5. One unit of packed red blood cells given for intraoperative bleeding. PLAN: 1. Saline lock IV. 2. Discontinue IV meds. 3. Augmentin 875 mg b.i.d. by mouth. 4. Good pulmonary toilet. 5. Dulcolax suppositories b.i.d. until the patient has moderate-size bowel movements. 6. We will evaluate p.r.n. or in the a.m. 7. Plan discharge in the a.m. if the patient has bowel movements. Desire Hale PA-C /[id number]
[2018-06-08] MEDS: Lisinopril 10 MG Tab PO SCH (08:47)
[2018-06-08] MEDS: Magnesium Oxide 400 MG Tab PO SCH (08:47)
[2018-06-08] MEDS: Amoxicillin/Clavulanate K 875-125 MG Tab PO SCH ×2 (08:48→21:03)
[2018-06-08] MEDS ORDERED: Bisacodyl 10 MG Supp RECTAL SCH (09:00)
[2018-06-08] MEDS: Pantoprazole 40 MG Delayed-Release Granules 1 Packet PO SCH (18:34)
[2018-06-08] MEDS: Lactobacillus Rhamnosus GG (Probiotic) Cap PO SCH (21:01)
[2018-06-09] MEDS: Acetaminophen 500 MG Tab PO SCH ×2 (00:44→06:07)
[2018-06-09] MEDS: Amoxicillin/Clavulanate K 875-125 MG Tab PO SCH (07:23)
[2018-06-09] MEDS: Lactobacillus Rhamnosus GG (Probiotic) Cap PO SCH (08:26)
[2018-06-09] MEDS: Magnesium Oxide 400 MG Tab PO SCH (08:26)
[2018-06-09] MEDS: Lisinopril 10 MG Tab PO SCH (08:27)
[2018-06-09 08:31] VITALS: BP 147/64
--- NOTE | 2018-06-10 08:07 | DISCH ---
ADMISSION DIAGNOSES: 1. Mid epigastric and right upper quadrant pain. 2. Cholecystitis. 3. Hypertension. 4. 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 6. B12 deficiency. 7. Sleep apnea. 8. Joint pain. DISCHARGE DIAGNOSES: 1. Diagnostic laparoscopy with conversion to laparotomy with: a. Cholecystectomy. b. En bloc right colectomy. c. Partial right hepatic lobectomy. d. Drainage of intra-abdominal abscess for acute and subacute cholecystitis with inflammatory fusion of hepatic flexure of the colon and portion of right lobe of the liver. Date of surgery was 06/05/2018. 2. Intraoperative bleed requiring 1 unit of packed red blood cells. 3. Hypomagnesium. 4. Gallbladder wound culture revealed E. coli. HISTORY: Cyrus Peralta is a 73-year-old male, who was admitted on 06/04/2018 with acute cholecystitis. The radiologist reports quite intense inflammatory changes in and around the gallbladder. After preoperative evaluation and discussion of the possible risks and possible complications, he wished to proceed with surgical procedure. HOSPITAL COURSE: Cyrus had his surgery on 06/05/2018. He had 1 unit of packed red blood cells started intraoperatively and finished in recovery room. On postoperative day #1, he was up ambulating in the mcneil. His pain was controlled. He was able to shower. Lab work remained good. On postoperative day #2, he was given bowel stimulation and he did start having bowel movements. Blood pressure did elevate a little bit, but did come down to within normal limits. Oral intake was adequate. Activity was good. Pain was managed with Tylenol. He declined the need for anything stronger. He was able to be discharged to home on 06/09/2018 without any complications. OBJECTIVE: GENERAL: Cyrus Peralta is a 73-year-old male. VITAL SIGNS: Height is 6 feet and weight is 227 pounds. Temperature is 95.9, pulse is 72, respiratory rate is 18, and blood pressure is 166/59. HEENT: Negative. NECK: Supple. HEART: Regular rate and rhythm. PULMONARY: Lungs are clear. ABDOMEN: Right subcostal incision is healing well. Carlton are intact. He has 2 BILLY drains, which will be removed prior to discharge. EXTREMITIES: Without peripheral edema. DISPOSITION: Discharged to home. CONDITION: Stable and improving. FOLLOWUP APPOINTMENT: With Desire Hale PA-C, on 06/16/2018 at 10:00 a.m. He is to come to the clinic at 9:30 a.m. for lab work for CBC, CMP, and magnesium. HOME MEDICATIONS: 1. Tylenol Extra Strength 1000 mg q.6 hours p.r.n. pain. 2. Augmentin 875 mg one tablet oral every 12 hours, #20. 3. Culturelle two tablets oral twice daily for 30 days. 4. He is to resume home medication of B complex one daily. 5. Calcium plus vitamin D 1 tablet oral daily. 6. Vitamin B12 1000 mcg sublingual daily. 7. Lisinopril 10 mg oral daily. 8. Pediatric multivitamin one tablet daily. DIET: Usual diet as tolerated. Drink 8 to 10 glasses of water a day. ACTIVITY: No lifting greater than 10 pounds for six weeks. Other activity, walk at least 6 times daily inside your home. Driving, do not drive for one week. Shower/bathing, may shower. DISCHARGE INSTRUCTIONS: Notify provider if any fever, increased pain, nausea, or vomiting. Keep site clean and dry. Wear abdominal binder for 6 weeks, and then as tolerated. Special Instruction: Use incentive spirometer 10 times every hour while awake for 1 week.
--- NOTE | 2018-06-11 08:08 | PN ---
DATE OF SERVICE: 06/07/2018 SUBJECTIVE: Jasper is postoperative day #2. Vital signs have been stable. Hemoglobin is 11.2. BNP is down to 330. Oral intake 1,260, urine output 1,450, and BILLY drains have put out 60 and 75 mL respectively. REVIEW OF SYSTEMS: Remainder of review of systems negative for any pertinent positives and negatives. OBJECTIVE: GENERAL: Cyrus Peralta is a 73-year-old male. He is alert and orientated. VITAL SIGNS: Stable. HEENT: Negative, NECK: Supple. HEART: Regular rate and rhythm. LUNGS: Clear. ABDOMEN: Dressings dry and intact. Abdominal binder is on. EXTREMITIES: Without peripheral edema. ASSESSMENT: Diagnostic laparoscopy with conversion to laparotomy with: 1. Cholecystectomy. 2. En bloc right colectomy. 3. Partial right hepatic lobectomy. 4. Drainage of intraabdominal abscess for acute and subacute cholecystitis with inflammatory effusion of hepatic flexure of the colon and portion of the right lobe of liver, date of surgery 06/05/2018. 5. One unit of packed red blood cells given for intraoperative bleeding. PLAN: 1. Continue good pulmonary toilet. 2. Decrease IV to 100 mL per hour. 3. May shower. 4. No straws, as patient is Maria Dolores-en-Y gastric bypass surgery. 5. Check CBC, CMP, and mag phos in a.m. Desire Hale PA-C /[id number]
== END 2018-06-09 10:00 | disposition home or self-care (01) | DRG 406 ==
LOC: JP.SDS 14:44 → JP.MS 14:44 → JP.2SS 15:00 → JP.SDS 15:00 → JP.2SS 17:14
PROVIDERS: ADMIT Surgery; ATTEND Surgery
PROC: 0FT40ZZ Resection of Gallbladder, Open Approach (ICD-10-PCS; principal; 2018-06-05)
PROC: 0FB10ZZ Excision of Right Lobe Liver, Open Approach (ICD-10-PCS; 2018-06-05)
PROC: 0FJ44ZZ Inspection of Gallbladder, Percutaneous Endoscopic Approach (ICD-10-PCS; 2018-06-05)
PROC: 0W9G0ZX Drainage of Peritoneal Cavity, Open Approach, Diagnostic (ICD-10-PCS; 2018-06-05)
PROC: 0DTF0ZZ Resection of Right Large Intestine, Open Approach (ICD-10-PCS; 2018-06-05)
PROC: 0D9W00Z Drainage of Peritoneum with Drainage Device, Open Approach (ICD-10-PCS; 2018-06-05)
PROC: 30233N1 Transfusion of Nonautologous Red Blood Cells into Peripheral Vein, Percutaneous Approach (ICD-10-PCS; 2018-06-05)
DX: K81.0 Acute cholecystitis (principal); K91.2 Postsurgical malabsorption, not elsewhere classified; K91.62 Intraoperative hemorrhage and hematoma of a digestive system organ or structure complicating other procedure; K66.0 Peritoneal adhesions (postprocedural) (postinfection); K82.8 Other specified diseases of gallbladder; Z53.31 Laparoscopic surgical procedure converted to open procedure; K76.89 Other specified diseases of liver; K63.89 Other specified diseases of intestine; I10 Essential (primary) hypertension; G47.30 Sleep apnea, unspecified; E53.8 Deficiency of other specified B group vitamins; Z98.84 Bariatric surgery status; Z98.0 Intestinal bypass and anastomosis status; E53.9 Vitamin B deficiency, unspecified; M25.50 Pain in unspecified joint; E83.42 Hypomagnesemia
CPT/HCPCS: 36415; 36430; 80053; 82150; 83690; 83735; 83880; 84100; 85027; 86850; 86900; 86901; 86920; 86922; 87070; 87075; 87077; 87186; 87205; 88307; 88313; 88341; 88342; 93005; 94762; A9270-GY; C9113; J0171; J0295; J0330; J0360; J1100; J1170; J2175; J2185; J2405; J2704; J2710; J2795; J3010; J3410; J3411; J3420; J3475; J3490; J7030; J7040; J7042; J7050; J7120; P9016

== ENCOUNTER 2020-07-05 13:15 | Emergency (ER) | payer MEDICARE, BC ==
--- NOTE | 2020-07-05 15:12 | EDM.PDOC ---
ED HPI GENERAL MEDICAL PROBLEM - General Chief Complaint: General Stated Complaint: LEFT LEG IS PAINFUL Time Seen by Provider: 07/05/20 15:00 Source of Information: Reports: Patient, Old Records, RN History Limitations: Reports: No Limitations - History of Present Illness INITIAL COMMENTS - FREE TEXT/NARRATIVE: 75 yo male with L medial thigh pain since this morning. Has a pHx of varicose veins in both legs, L > R. Had some dental extractions last week. No SOB or sharp chest pains with breathing. Onset: Today Onset Date: 07/05/20 Duration: Hour(s):, Constant Location: Reports: Lower Extremity, Left Quality: Reports: Ache Severity: Moderate Improves with: Reports: None Worsens with: Reports: Other (touching area) Context: Reports: Other (See HPI) Associated Symptoms: Reports: No Other Symptoms Treatments E LEARNING SPECIALIST: Reports: Other (see below) (none) Left Upper Leg Pain Score (Numeric/FACES): 4 - Related Data Allergies Allergy/AdvReac Type Severity Reaction Status Date / Time No Known Allergies Allergy Verified 07/05/20 13:56 Home Meds: Home Meds Calc/D3/Mag/Zn/Lisa/Toby/Romayor [Calcium 600 MG Plus Vit D] 1 tab PO DAILY 04/25/15 [History] B-Complex with Vitamin C [B-Complex with C] 1 each PO DAILY 01/29/18 [History] Lisinopril 10 mg PO DAILY 01/29/18 [History] Pediatric Multiple Vitamin 1 tab PO DAILY 01/29/18 [History] Cyanocobalamin (Vitamin B-12) [Vitamin B-12] 1,000 mcg SL DAILY 01/31/18 [History] Acetaminophen [Tylenol Extra Strength] 1,000 mg PO Q6H tablet 06/09/18 [Rx] Past Medical History HEENT History: Reports: Impaired Vision Other HEENT History: wears glasses Cardiovascular History: Reports: Hypertension Respiratory History: Reports: Sleep Apnea Other Respiratory History: cpap Gastrointestinal History: Reports: Bowel Obstruction Musculoskeletal History: Reports: None Endocrine/Metabolic History: Reports: Obesity/BMI 30+ Hematologic History: Reports: B12 Deficiency, Other (See Below) Other Hematologic History: B-comples deficiency - Infectious Disease History Infectious Disease History: Reports: Chicken Pox, Measles, Mumps - Past Surgical History Head Surgeries/Procedures: Reports: None HEENT Surgical History: Reports: None Cardiovascular Surgical History: Reports: None Respiratory Surgical History: Reports: None GI Surgical History: Reports: Bariatric Procedure, Cholecystectomy, Hernia, Abdominal, Small Bowel Endocrine Surgical History: Reports: None Neurological Surgical History: Reports: C-Spine Musculoskeletal Surgical History: Reports: Other (See Below) Other Musculoskeletal Surgeries/Procedures:: spinal surgery Dermatological Surgical History: Reports: None Social & Family History - Family History Family Medical History: No Pertinent Family History HEENT: Reports: Glaucoma, Impaired Vision Cardiac: Reports: OK Endocrine/Metabolic: Reports: Diabetes, type II - Tobacco Use Tobacco Use Status *Q: Never Tobacco User Second Hand Smoke Exposure: No - Caffeine Use Caffeine Use: Reports: Coffee Caffeine Use Comment: 20 oz per day - Recreational Drug Use Recreational Drug Use: No ED ROS GENERAL - Review of Systems Review Of Systems: See Below Constitutional: Reports: No Symptoms Respiratory: Reports: No Symptoms. Denies: Shortness of Breath, Pleuritic Chest Pain Cardiovascular: Denies: Chest Pain Musculoskeletal: Reports: Leg Pain (L prox/medial thigh) Skin: Reports: No Symptoms ED EXAM, GENERAL - Physical Exam Exam: See Below Exam Limited By: No Limitations General Appearance: Alert, WD/WN, No Apparent Distress Eye Exam: Bilateral Eye: Normal Inspection Ears: Normal External Exam, Normal Canal, Hearing Grossly Normal Ear Exam: Bilateral Ear: Auricle Normal, Canal Normal Nose: Normal Inspection, No Blood Throat/Mouth: Normal Inspection, Normal Lips, Normal Oropharynx, Normal Voice, No Airway Compromise Head: Atraumatic, Normocephalic Neck: Normal Inspection Respiratory/Chest: No Respiratory Distress, Lungs Clear, Normal Breath Sounds, No Accessory Muscle Use Cardiovascular: Regular Rate, Rhythm, No Edema Extremities: Other (tenderness on palpation of medial L thigh. No skin changes. Varicosities present. ) Neurological: Alert, Oriented, CN II-XII Intact, Normal Cognition, No Motor/Sensory Deficits Psychiatric: Normal Affect, Normal Mood Skin Exam: Warm, Dry, Intact, Normal Color, No Rash Course - Vital Signs Last Recorded V/S: Last Vital Signs Temp 36.4 C 07/05/20 13:59 Pulse 58 L 07/05/20 16:39 Resp 16 07/05/20 13:59 BP 155/70 H 07/05/20 16:39 Pulse Ox 100 07/05/20 16:39 - Orders/Labs/Meds Orders: Active Orders 24 hr Category Date Time Status VL Duplex Lwr Ext Veins Ltd Lt [US] Stat Exams 07/05/20 15:58 Ordered Labs: Laboratory Tests 07/05/20 Range/Units 15:12 D-Dimer, Quantitative 836.65 H (0.0-500.0) ng/mL - Radiology Interpretation Free Text/Narrative:: Venous doppler L leg-no dvt Departure - Departure Time of Disposition: 16:40 Disposition: Home, Self-Care 01 Condition: Good Clinical Impression: Thigh pain Qualifiers: Laterality: left Qualified Code(s): M79.652 - Pain in left thigh - Discharge Information *PRESCRIPTION DRUG MONITORING PROGRAM REVIEWED*: Not Applicable *COPY OF PRESCRIPTION DRUG MONITORING REPORT IN PATIENT RONALD: Not Applicable Referrals: Cleveland Montero MD [Primary Care Provider] - Forms: ED Department Discharge Additional Instructions: Acetaminophen up to 1000 mg every 6 hrs as needed for pain relief. F/U in the clinic if this worsens or is not better in a couple weeks. Sepsis Event Note (ED) - Evaluation Sepsis Screening Result: No Definite Risk - Focused Exam Vital Signs: Vital Signs Temp Pulse Resp BP Pulse Ox 07/05/20 16:39 58 L 155/70 H 100 07/05/20 14:36 55 L 152/65 H 99 07/05/20 14:06 59 L 156/75 H 97 07/05/20 13:59 36.4 C 66 16 176/85 H 99 07/05/20 13:39 36.4 C 66 16 176/85 H 99 - My Orders Last 24 Hours: My Active Orders 07/05/20 15:58 VL Duplex Lwr Ext Veins Ltd Lt [US] Stat - Assessment/Plan Last 24 Hours: My Active Orders 07/05/20 15:58 VL Duplex Lwr Ext Veins Ltd Lt [US] Stat
[2020-07-05 16:40] VITALS: BP 155/70; PULSE 58
--- NOTE | 2020-07-06 09:01 | US ---
VL Duplex Lwr Ext Veins Ltd Lt INDICATION: medial L thigh pain with elevated d--dimer FINDINGS: Ultrasound examination of the lower extremity using Doppler and compressive technique demonstrates that the common femoral, femoral, and popliteal veins are patent, and negative for thrombus. The calf veins were segmentally visualized and are negative where seen. There is a 5.4 x 2.3 x 3.9 cm fluid collection in the left medial thigh. There is no internal flow IMPRESSION: Negative for deep venous thrombosis. Fluid collection in the left medial thigh. This may represent hematoma or seroma. Dissection of a Burnett's cyst is not excluded
== END 2020-07-05 17:03 | disposition home or self-care (01) ==
LOC: JP.ED 13:15
DX: M79.652 Pain in left thigh (principal); I10 Essential (primary) hypertension; E66.9 Obesity, unspecified; Z68.37 Body mass index [BMI] 37.0-37.9, adult; Z79.899 Other long term (current) drug therapy
CPT/HCPCS: 36415; 85379; 93971-26-LT; 93971-LT; 99283; 99284-25